=== PATIENT | female | born 1980 | race Caucasian/White ===

== ENCOUNTER 2016-08-15 12:18 | Emergency (ER) | payer OTHER, MEDICAID ==
[~2016-08-15] VITALS: Ht 154.9 cm; Wt 54.4 kg
[~2016-08-15 12:18] MED LIST: FLEXERIL10 MG PO; LOPRESSOR 50 MG50 MG PO; LORTAB 5/500 501 TAB PO; NAPROXEN SODIU500 MG PO; ORTHO TRI-CYCLE1 TAB PO
[2016-08-15] MEDS ORDERED: CYANOCOBAL1000 MCG/M PO (12:30)
--- OUTSIDE RECORDS SUMMARY | 2016-08-15 12:44 | External Medical Summary Rpt ---
Author Author , RAY Yuen RAY Address Unknown Phone [email or web address] Medical Testing Care Team Providers Care Army Officer Name Role Phone MAYORGA ALL, MAYORGA ALL Unavailable Unavailable Clue App [facility] Unavailable Unavailable DEPARTMENT, [facility] HEALTH DEPARTMENT [facility] Unavailable Unavailable DEPARTMENT, [facility] HEALTH DEPARTMENT VILLAVICENCIO DORIAN, VILLAVICENCIO Unavailable Unavailable [facility] VILLAVICENCIO DORIAN, VILLAVICENCIO Unavailable Unavailable [facility], [facility] Un[facility] Un[facility] Unavailable Unavailable [facility] JOSIE Murrell, GORGE Murrell Unavailable Unavailable GORGE VALLE, GORGE Unavailable Unavailable Nyasia GILLETTE COOPER, Unavailable Unavailable MARIANNE CARDOZO Unavailable Unavailable ANTHONY KRAFT, Unavailable Unavailable [facility] Unavailable Unavailable [facility], [facility] Unavailable Unavailable INC, [facility] Unavailable [facility]available HOSPITAL P, [facility] P SANDOVAL JESSICA, SANDOVAL JESSICA Unavailable Unavailable SANDOVAL JESSICA, SANDOVAL JESSICA Unavailable Unavailable [facility], Unavailable Unavailable [facility] Unavailable [facility]available IMAGING [facility], [facility] Unavailable Unavailable HOLDINGS, [facility] Unavailable Unavailable [facility], [facility] & Unavailable [facility]available [facility] & Unavailable Unavailable [facility] JOE OF Unavailable Unavailable [facility], [facility]ORATORY JO[facility]ATORY JO[facility] OF Unavailable Unavailable [facility], [facility]AT[facility] Unavailable Unavailable [facility], [facility] KELLY ROBLEDO DWI, KELLY Unavailable Unavailable JR DWI JANET ROBLEDO SUMANTH, Unavailable Unavailable OMAR CHARLES JR, Unavailable Unavailable OMAR MADDOX MULBERRY EDEN, Unavailable Unavailable MULBERRY EDEN MULBERRY EDEN, Unavailable Unavailable MULBERRY EDEN [facility], Unavailable Unavailable [facility], Unavailable Unavailable [facility] Unavailable Unavailable LAB, [facility] Unavailable Unavailable LAB, [facility] Unavailable [facility] Unavailable Unavailable [facility] Unavailable Unavailable DEPARTMENT, [facility] MARTHA THOMAS Unavailable Unavailable ELÍAS PATEL, ELÍAS Unavailable Unavailable AMANDA [facility] Unavailable [facility]available [facility] Unavailable Unavailable LLC., 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 R002 PALPITATION 07-14-2016 [facility] S PHYSICIANS GROUP [id number] PAIN IN 12-18-2015 [facility] [id number] UNS INJURY 12-18-2015 [facility] LT LOWER MEDICAL LEG INITIAL IMAGING ASS ENCOUNTER Z23 ENCOUNTER 11-26-2015 [facility] FOR [facility] IMMUNIZATIO DEPARTMENT N Z302 ENCOUNTER 12-10-2014 [facility] FOR PHYSICIANS STERILIZATI GROUP ON [id number] ENCOUNTER 12-07-2014 [facility] PREPROCEDUR INC AL LABORATORY EXAM Z309 ENCOUNTER 12-07-2014 [facility] CONTRACEPTI INC VE MANAGEMENT UNS Z3009 ENCOUNTER 11-27-2014 [facility] 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 Z9851 TUBAL 11-27-2014 [facility] LIGATION PHYSICIANS STATUS GROUP 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 Z1151 ENCOUNTER 11-14-2014 LABORATORY FOR JOE OF SCREENING VANI H FOR HUMAN PAPILLOMAVI MILO Z124 ENCOUNTER 11-14-2014 LABORATORY OTHER JOE OF SCREENING VANI H MALIG NEOPLASM CERVIX [id number] ENCOUNTER 11-13-2014 [facility] 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 EXAM PRIMARY GENERAL RTN CARE CENTER W/O ABNORMAL FIND Z713 DIETARY 11-13-2014 [facility] COUNSELING PRIMARY AND CARE CENTER SURVEILLANC E Z719 COUNSELING 11-13-2014 [facility] UNSPECIFIED PRIMARY CARE CENTER V0481 NEED 11-01-2014 [facility] PROPHYLACTI HEALTH C DEPARTMENT VACCINATION &INOCULATIO N FLU 1319 UNSPECIFIED 10-25-2014 [facility] PHYSICIANS TRICHOMONIA GROUP SIS 74160 UNSPECIFIED 10-25-2014 [facility] VAGINITIS PHYSICIANS AND GROUP VULVOVAGINI TIS V2509 OTH GENERAL 10-25-2014 [facility] PHYSICIANS CNSL&ADVICE GROUP CONTRACEPT MANAGEMENT V692 PROBLEMS 10-25-2014 [facility] HIGH-RISK INC SEXUAL BEHAVIOR 6235 LEUKORRHEA 09-19-2014 [facility] NOT PRIMARY SPECIFIED CARE CENTER INFECTIVE V2549 SURVEILLANC 08-20-2014 [facility] E OTH PREV HEALTH PRSC DEPARTMENT CONTRACEPT METHOD 0542 HERPETIC 07-05-2014 [facility] ATITIS 7464 CONGENITAL 07-05-2014 [facility] CARE INSUFFICIEN ASSOCIATES CY OF AORTIC VALVE 7840 HEADACHE 07-05-2014 [facility] 7851 PALPITATION 07-05-2014 [facility] S [facility]ATES 4019 UNSPECIFIED 03-14-2014 COMBINED ESSENTIAL PHYSICIANS HYPERTENSIO LA N 460 ACUTE 12-02-2013 LAB JOE NASOPHARYNG VANI ITIS HOLDINGS 7821 RASH AND 12-01-2013 [facility] OTHER ASSOCIATES NONSPECIFIC SKIN ERUPTION V2689 OTHER 11-08-2013 [facility] SPECIFIED HEALTH PROCREATIVE DEPARTMENT MANAGEMENT 7295 PAIN IN 08-07-2013 MULBERRY SOFT EDEN TISSUES OF LIMB 6259 UNSPEC 03-23-2013 [facility] DORIAN SYMPTOM ASSOC W/FEMALE GENITAL ORGANS 04140 ABDOMINAL 03-23-2013 VILL[facility]ICENCIO DORIAN PAIN, LEFT LOWER QUADRANT 30229 REGULAR 03-22-2013 SANDOVAL JESSICA ASTIGMATISM 6250 DYSPAREUNIA 03-16-2013 [facility]IAN 39190 ABDOMINAL 03-16-2013 [facility]IAN PAIN, UNSPECIFIED SITE 4871 INFLUENZA 02-20-2013 FABIANA R WITH OTHER H RESPIRATORY MANIFESTATI ONS 94805 HEMATURIA 06-25-2010 [place] [facility] 24791 ABDOMINAL 06-25-2010 [facility] PAIN OTHER [facility] SPECIFIED INC SITE 4240 MITRAL 05-20-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 DISORDERS GROUP 85190 SUPRAVENTRI 05-20-2010 [facility] CULAR PHYSICIANS PREMATURE GROUP BEATS 8798 OPEN WOUND 05-10-2010 COMBINED UNSPEC SITE PHYSICIANS WITHOUT LA MENTION COMP 2662 OTHER 03-10-2010 [facility] Cano-COMPLEX CO HEALTH DEFICIENCIE DEPARTME S V2541 SURVEILLANC 03-10-2010 JASON Nava PREV CO HEALTH PRESCRIBED DEPARTME CONTRACEPT PILL 7466 CONGENITAL 03-03-2010 [facility]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 7852 UNDIAGNOSED 02-13-2010 [place] [facility] P V6700 FOLLOW-UP 12-02-2009 WOMEN'S EXAMINATION HEALTH FOLLOWING CLINIC OF UNSPEC [place] SURGERY 5680 PERITONEAL 11-25-2009 WOMEN'S ADHESIONS [facility]ALTH CLINIC OF [place] 6146 PELVIC 11-25-2009 WOMEN'S PERITONEAL HEALTH ADHESIONS, CLINIC OF FEMALE [place] 6268 OTH D/O 11-25-2009 PATHOLOGY & MENSTRUATIO CYTOLOGY N&OTH ABN LAB BLEED FE GNT TRACT 6253 DYSMENORRHE 11-18-2009 WOMEN'S A HEALTH CLINIC OF [place] 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ASSOCIATES SKIN OF TRUNK EXCEPT SCROTUM 40367 OTHER 05-15-2009 [facility] ANXIETY [facility] STATES 2382 NEOPLASM OF 05-01-2009 [facility] UNCERTAIN [facility] BEHAVIOR OF SKIN 97089 VERTIGO 04-24-2009 [facility] LATE EFFECT ASSOCIATES CEREBROVASC ULAR DISEASE 7804 DIZZINESS 04-24-2009 [facility] AND PHYSICIANS GIDDINESS GROUP 26994 CHEST PAIN 04-24-2009 [facility] 71162 UNSPECIFIED 04-17-2009 [facility] VIRAL [facility] INFECTION IN CCE & UNS SITE 4279 UNSPECIFIED 04-17-2009 [facility] CARDIAC [facility] DYSRHYTHMIA Medications Na ND Rx Da Fi Fi Am Da Di Ph RX Ph St me C No te ll ll ou ys ag ar # ys at rm s nt no ma ic us Or Da si cy ia de te s n re d LI 68 06 06 60 30 00 CL Ac SI 18 -0 -3 .0 00 IN ti NO 00 6- 0- 00 00 IC ve RI 98 20 20 43 IL 00 17 17 31 PH 3 88 AR 10 MA CY MG TA BL ET ME 57 05 06 60 30 00 CL Ac TO 23 -2 -2 .0 00 IN ti RI 70 7- 3- 00 00 IC ve OL 10 20 20 42 OL 19 17 17 40 PH 9 92 AR TA MA RT CY RA TE 50 MG TA B TR 00 05 06 90 30 00 CL Ac AM 37 -2 -2 .0 00 IN ti AD 88 7- 3- 00 00 IC ve OL 08 20 20 43 -A 80 17 17 22 PH CE 5 81 AR TA MA AK CY NO PH N 37 .5 -3 25 DI 51 04 05 12 30 00 CL Ac AZ 86 -2 -2 0. 00 IN ti EP 20 8- 6- 00 00 IC ve AM 06 20 20 0 42 5 31 17 17 40 PH 0 76 AR MG MA CY TA BL ET ME 57 04 05 60 30 00 CL Ac TO 23 -2 -2 .0 00 IN ti RI 70 8- 6- 00 00 IC ve OL 10 20 20 42 OL 19 17 17 40 PH 9 92 AR TA MA RT CY RA TE 50 MG TA B ME 00 03 04 60 30 00 CL Ac TO 59 -3 -2 .0 00 IN ti RI 10 1- 8- 00 00 IC ve OL 46 20 20 42 OL 21 17 17 40 PH 0 92 AR TA MA RT CY RA TE 50 MG TA B TR 00 03 04 90 30 00 CL Ac AM 37 -3 -2 .0 00 IN ti AD 88 1- 8- 00 00 IC ve OL 08 20 20 42 -A 80 17 17 69 PH CE 5 50 AR TA MA AK CY NO PH N 37 .5 -3 25 ME 00 03 03 60 30 00 CL Ac TO 59 -0 -3 .0 00 IN ti RI 10 3- 1- 00 00 IC ve OL 46 20 20 42 OL 21 17 17 11 PH 0 24 AR TA MA RT CY RA TE 50 MG TA B TR 00 03 03 90 30 00 CL Ac AM 37 -0 -3 .0 00 IN ti AD 88 3- 1- 00 00 IC ve OL 08 20 20 42 -A 80 17 17 40 PH CE 5 77 AR TA MA AK CY NO PH N 37 .5 -3 25 ME 00 02 03 60 30 00 CL Ac TO 59 -0 -0 .0 00 IN ti RI 10 3- 3- 00 00 IC ve OL 46 20 20 42 OL 21 17 17 11 PH 0 24 AR TA MA RT CY RA TE 50 MG TA B DI 51 01 02 12 30 00 CL Ac AZ 86 -2 -2 0. 00 IN ti EP 20 3- 4- 00 00 IC ve AM 06 20 20 0 41 5 31 17 17 98 PH 0 25 AR MG MA CY TA BL ET TR 00 01 02 45 15 00 CL Ac AM 37 -0 -1 .0 00 IN ti AD 88 6- 0- 00 00 IC ve OL 08 20 20 41 -A 80 17 17 57 PH CE 5 55 AR TA MA AK CY NO PH N 37 .5 -3 25 NI 37 01 02 28 28 00 CL Ac CO 20 -0 -0 .0 00 IN ti TI 50 2- 3- 00 00 IC ve NE 35 20 20 41 87 17 17 37 PH 21 4 69 AR MA MG CY /2 4H R PA TC H ME 50 12 02 14 7 00 WA Ac TR 11 -3 -0 .0 00 L- ti ON 10 1- 3- 00 07 MA ve ID 33 20 20 46 RT AZ 40 16 17 18 OL 2 60 PH E AR 50 MA 0 CY MG #5 TA 91 BL ET ME 00 01 02 60 30 00 CL Ac TO 59 -0 -0 .0 00 IN ti RI 10 2- 3- 00 00 IC ve OL 46 20 20 40 OL 21 17 17 74 PH 0 71 AR TA MA RT CY RA TE 50 MG TA B TR 00 12 01 45 15 00 CL Ac AM 37 -0 -1 .0 00 IN ti AD 88 9- 3- 00 00 IC ve OL 08 20 20 41 -A 80 16 17 57 PH CE 5 55 AR TA MA AK CY NO PH N 37 .5 -3 25 ME 00 12 01 10 5 00 CL Ac TR 59 -0 -1 .0 00 IN ti ON 15 8- 3- 00 00 IC ve ID 21 20 20 40 AZ 50 16 17 81 PH OL 5 64 AR E MA 50 CY 0 MG TA BL ET DI 51 12 01 12 30 00 CL Ac AZ 86 -0 -1 0. 00 IN ti EP 20 8- 3- 00 00 IC ve AM 06 20 20 0 41 5 31 16 17 05 PH 0 31 AR MG MA CY TA BL ET ME 00 12 01 60 30 00 CL Ac TO 59 -0 -0 .0 00 IN ti RI 10 5- 9- 00 00 IC ve OL 46 20 20 40 OL 21 16 17 74 PH 0 71 AR TA MA RT CY RA TE 50 MG TA B NI 37 12 01 28 28 00 CL Ac CO 20 -0 -0 .0 00 IN ti TI 50 5- 9- 00 00 IC ve NE 35 20 20 41 87 16 17 37 PH 21 4 69 AR MA MG CY /2 4H R PA TC H AC 00 04 04 0 15 5 CL 23 CR Ac YC 09 -2 -2 .0 IN 74 OW ti LO 38 9- 9- 00 IC 77 DY ve 94 20 20 R 00 11 11 PH CR 20 1 AR IS 0 MA TA MG CY S CA LL PS C UL E ME 49 03 04 4 60 30 CL 23 CO Ac TO 88 -0 -1 .0 IN 38 OP ti RI 40 2- 4- 00 IC 21 ER ve OL 40 20 20 OL 50 11 11 PH RADHA 1 AR HN VERDIN MA G CC CY ER LL C 50 MG TA B CI 00 03 04 2 15 30 CL 23 CO Ac TA 37 -1 -1 .0 IN 48 OP ti LO 86 7- 4- 00 IC 67 ER ve RI 23 20 20 AM 30 11 11 PH RADHA 1 AR HN HB MA G R CY 40 LL MG C TA BL ET DI 00 03 04 2 90 30 CL 23 CO Ac AZ 59 -0 -0 .0 IN 38 OP ti EP 15 2- 6- 00 IC 24 ER ve AM 61 20 20 5 91 11 11 PH RADHA 0 AR HN MG MA G CY TA BL LL ET C AM 00 03 03 0 4. 1 CL 23 MC Ac OX 78 -2 -2 00 IN 52 CO ti IC 12 4- 4- [address] ve IL 61 20 20 LI 30 11 11 PH GA N 5 AR RY 50 MA L 0 CY MG LL CA C PS UL E CI 00 03 03 2 15 30 CL 23 CO Ac TA 37 -1 -1 .0 IN 48 OP ti LO 86 7- 7- 00 IC 67 ER ve RI 23 20 20 AM 30 11 11 PH RADHA 1 AR HN HB MA G R CY 40 LL MG C TA BL ET ME 49 03 03 4 60 30 CL 23 CO Ac TO 88 -0 -1 .0 IN 38 OP ti RI 40 2- 4- 00 IC 21 ER ve OL 40 20 20 OL 50 11 11 PH RADHA 1 AR HN VERDIN MA G CC CY ER LL C 50 MG TA B DI 00 03 03 2 90 30 CL 23 CO Ac AZ 59 -0 -0 .0 IN 38 OP ti EP 15 2- 3- 00 IC 24 ER ve AM 61 20 20 5 91 11 11 PH RADHA 0 AR HN MG MA G CY TA BL LL ET C AM 00 03 03 0 4. 1 CL 23 CO Ac OX 78 -0 -0 00 IN 38 OP ti IC 12 2- 2- 0 IC 23 ER ve IL 61 20 20 LI 30 11 11 PH RADHA N 5 AR HN 50 MA G 0 CY MG LL CA C PS UL E ME 49 09 02 5 60 30 CL 22 CO Ac TO 88 -1 -1 .0 IN 31 OP ti RI 40 4- 4- 00 IC 78 ER ve OL 40 20 20 OL 50 10 11 PH RADHA 1 AR HN VERDIN MA G CC CY ER LL C 50 MG TA B DI 00 01 02 1 90 30 CL 22 CO Ac AZ 59 -0 -0 .0 IN 98 OP ti EP 15 4- 4- 00 IC 75 ER ve AM 61 20 20 5 91 11 11 PH RADHA 0 AR HN MG MA G CY TA BL LL ET C ME 49 09 01 5 60 30 CL 22 CO Ac TO 88 -1 -1 .0 IN 31 OP ti RI 40 4- 3- 00 IC 78 ER ve OL 40 20 20 OL 50 10 11 PH RADHA 1 AR HN VERDIN MA G CC CY ER LL C 50 MG TA B TR 65 01 01 0 90 30 CL 22 CO Ac AM 16 -0 -0 .0 IN 98 OP ti AD 20 4- 4- 00 IC 74 ER ve OL 62 20 20 71 11 11 PH RADHA HC 1 AR HN L MA G 50 CY MG LL C TA BL ET DI 00 01 01 1 90 30 CL 22 CO Ac AZ 59 -0 -0 .0 IN 98 OP ti EP 15 4- 4- 00 IC 75 ER ve AM 61 20 20 5 91 11 11 PH RADHA 0 AR HN MG MA G CY TA BL LL ET C ME 49 09 12 5 60 30 CL 22 CO Ac TO 88 -1 -1 .0 IN 31 OP ti RI 40 4- 4- 00 IC 78 ER ve OL 40 20 20 OL 50 10 10 PH RADHA 1 AR HN VERDIN MA G CC CY ER LL C 50 MG TA B DI 00 10 12 2 90 30 CL 22 CO Ac AZ 17 -0 -0 .0 IN 43 OP ti EP 23 5- 3- 00 IC 62 ER ve AM 92 20 20 2 56 10 10 PH RADHA 0 AR HN MG MA G CY TA BL LL ET C TR 65 11 11 0 42 9 CL 22 CL Ac AM 16 -2 -2 .0 IN 73 AR ti AD 20 3- 3- 00 IC 90 KE ve OL 62 20 20 71 10 10 PH DE HC 1 AR RE L MA K 50 CY J MG LL C TA BL ET ME 49 09 11 5 60 30 CL 22 CO Ac TO 88 -1 -1 .0 IN 31 OP ti RI 40 4- 0- 00 IC 78 ER ve OL 40 20 20 OL 50 10 10 PH RADHA 1 AR HN VERDIN MA G CC CY ER LL C 50 MG TA B 00 11 11 0 30 8 CL 22 CL Ac 59 -0 -0 .0 IN 60 AR ti 10 3- 3- 00 IC 75 KE ve 38 20 20 50 10 10 PH DE 5 AR RE MA K CY J LL C DI 00 10 11 2 90 30 CL 22 CO Ac AZ 17 -0 -0 .0 IN 43 OP ti EP 23 5- 3- 00 IC 62 ER ve AM 92 20 20 2 56 10 10 PH RADHA 0 AR HN MG MA G CY TA BL LL ET C 00 10 10 1 30 6 CL 22 CL Ac 59 -1 -2 .0 IN 51 AR ti 10 8- 5- 00 IC 96 KE ve 38 20 20 50 10 10 PH DE 5 AR RE MA K CY J LL C 00 10 10 1 30 6 CL 22 CL Ac 59 -1 -1 .0 IN 51 AR ti 10 8- 8- 00 IC 96 KE ve 38 20 20 50 10 10 PH DE 5 AR RE MA K CY J LL C 24 10 10 1 12 30 CL 22 CL Ac 48 -1 -1 0. IN 47 AR ti 60 1- 1- 00 IC 34 KE ve 60 20 20 0 11 10 10 PH DE 0 AR RE MA K CY J LL C TR 65 10 10 0 42 9 CL 22 CL Ac AM 16 -1 -1 .0 IN 47 AR ti AD 20 1- 1- 00 IC 35 KE ve OL 62 20 20 71 10 10 PH DE HC 1 AR RE L MA K 50 CY J MG LL C TA BL ET ME 49 09 10 5 60 30 CL 22 CO Ac TO 88 -1 -1 .0 IN 31 OP ti RI 40 4- 1- 00 IC 78 ER ve OL 40 20 20 OL 50 10 10 PH RADHA 1 AR HN VERDIN MA G CC CY ER LL C 50 MG TA B DI 00 10 10 2 90 30 CL 22 CO Ac AZ 17 -0 -0 .0 IN 43 OP ti EP 23 5- 5- 00 IC 62 ER ve AM 92 20 20 2 56 10 10 PH RADHA 0 AR HN MG MA G CY TA BL LL ET C ME 68 09 09 3 30 30 CL 22 CO Ac LO 18 -2 -2 .0 IN 39 OP ti XI 00 7- 7- 00 IC 01 ER ve CA 50 20 20 M 10 10 10 PH RADHA 7. 1 AR HN 5 MA G MG CY TA LL BL C ET AC 00 09 09 1 15 5 CL 22 CO Ac YC 09 -2 -2 .0 IN 36 OP ti LO 38 3- 3- 00 IC 96 ER ve 94 20 20 R 30 10 10 PH RADHA 40 1 AR HN 0 MA G MG CY TA LL BL C ET ME 49 09 09 5 60 30 CL 22 CO Ac TO 88 -1 -1 .0 IN 31 OP ti RI 40 4- 4- 00 IC 78 ER ve OL 40 20 20 OL 50 10 10 PH RADHA 1 AR HN VERDIN MA G CC CY ER LL C 50 MG TA B AC 00 06 09 1 15 5 CL 21 CO Ac YC 09 -2 -1 .0 IN 88 OP ti LO 38 8- 4- 00 IC 31 ER ve 94 20 20 R 30 10 10 PH RADHA 40 5 AR HN 0 MA G MG CY TA LL BL C ET DI 00 06 09 2 90 30 CL 21 CO Ac AZ 17 -2 -0 .0 IN 88 OP ti EP 23 8- 3- 00 IC 32 ER ve AM 92 20 20 2 56 10 10 PH RADHA 0 AR HN MG MA G CY TA BL LL ET C ME 49 03 08 6 60 30 CL 21 CO Ac TO 88 -1 -1 .0 IN 23 OP ti RI 40 0- 2- 00 IC 11 ER ve OL 40 20 20 OL 50 10 10 PH RADHA 1 AR HN VERDIN MA G CC CY ER LL C 50 MG TA B DI 00 06 08 2 90 30 CL 21 CO Ac AZ 17 -2 -0 .0 IN 88 OP ti EP 23 8- 4- 00 IC 32 ER ve AM 92 20 20 2 57 10 10 PH RADHA 0 AR HN MG MA G CY TA BL LL ET C ME 49 03 07 6 60 30 CL 21 CO Ac TO 88 -1 -1 .0 IN 23 OP ti RI 40 0- 3- 00 IC 11 ER ve OL 40 20 20 OL 50 10 10 PH RADHA 1 AR HN VERDIN MA G CC CY ER LL C 50 MG TA B DI 00 06 07 2 90 30 CL 21 CO Ac AZ 17 -2 -0 .0 IN 88 OP ti EP 23 8- 5- 00 IC 32 ER ve AM 92 20 20 2 56 10 10 PH RADHA 0 AR HN MG MA G CY TA BL LL ET C AC 00 06 06 1 15 5 CL 21 CO Ac YC 09 -2 -2 .0 IN 88 OP ti LO 38 8- 8- 00 IC 31 ER ve 94 20 20 R 30 10 10 PH RADHA 40 5 AR HN 0 MA G MG CY TA LL BL C ET ME 49 03 06 6 60 30 CL 21 CO Ac TO 88 -1 -0 .0 IN 23 OP ti RI 40 0- 9- 00 IC 11 ER ve OL 40 20 20 OL 50 10 10 PH RADHA 1 AR HN VERDIN MA G CC CY ER LL C 50 MG TA B DI 00 04 06 2 90 30 CL 21 CO Ac AZ 17 -0 -0 .0 IN 40 OP ti EP 23 7- 3- 00 IC 87 ER ve AM 92 20 20 2 56 10 10 PH RADHA 0 AR HN MG MA G CY TA BL LL ET C ME 49 03 05 6 60 30 CL 21 CO Ac TO 88 -1 -1 .0 IN 23 OP ti RI 40 0- 1- 00 IC 11 ER ve OL 40 20 20 OL 50 10 10 PH RADHA 1 AR HN EVRDIN MA G CC CY ER LL C 50 MG TA B DI 00 04 05 2 90 30 CL 21 CO Ac AZ 17 -0 -0 .0 IN 40 OP ti EP 23 7- 5- 00 IC 87 ER ve AM 92 20 20 2 56 10 10 PH RADHA 0 AR HN MG MA G CY TA BL LL ET C ME 49 03 04 6 60 30 CL 21 CO Ac TO 88 -1 -1 .0 IN 23 OP ti RI 40 0- 2- 00 IC 11 ER ve OL 40 20 20 OL 50 10 10 PH RADHA 1 AR HN VERDIN MA G CC CY ER LL C 50 MG TA B DI 00 04 04 2 90 30 CL 21 CO Ac AZ 17 -0 -0 .0 IN 40 OP ti EP 23 7- 7- 00 IC 87 ER ve AM 92 20 20 2 56 10 10 PH RADHA 0 AR HN MG MA G CY TA BL LL ET C LO 63 03 03 1 90 30 WA 44 CO Ac RA 30 -1 -1 .0 L- 84 OP ti ZE 40 8- 8- 00 MA 25 ER ve PA 77 20 20 RT 5 M 29 10 10 RADHA 0. 0 PH HN 5 AR G MG MA CY TA # BL ET 10 05 91 ME 49 03 03 6 60 30 CL 21 CO Ac TO 88 -1 -1 .0 IN 23 OP ti RI 40 0- 0- 00 IC 11 ER ve OL 40 20 20 OL 50 10 10 PH RADHA 1 AR HN VERDIN MA G CC CY ER LL C 50 MG TA B Immunization Name Date Rout CVX Reac Dose Comm Prov Is Faci e tion ent ider Refu lity Give sed n IIV4 10-1 158 BRAC No BRAC 8-20 LISSY LISSY VACC 16 CO CO HEAL HEAL SPLI TH TH T DEPA DEPA VIRU RTME RTME S NT NT 0.5 ML DOS FOR IM USE IIV4 09-2 158 BRAC No BRAC 4-20 LISSY LISSY VACC 15 CO CO HEAL HEAL SPLI TH TH T DEPA DEPA VIRU RTME RTME S NT NT 0.5 ML DOS FOR IM USE Results Labs Lab Lab Date Result Refere Interp Status Commen Order Detail nces retati t Range on CHLAMYDIA AND GONORRHEA TESTING (01-25-2013 09:00) Chlamyd NEGATIV complet ia 013 E ed trachom 09:00 atis rRNA [Presen ce] in Unspeci fied specime n by Probe & target amplifi cation method Neisser NEGATIV complet ia 013 E ed gonorrh 09:00 oeae rRNA [Presen ce] in Unspeci fied specime n by Probe & target amplifi cation method CHLAMYDIA AND GONORRHEA TESTING (01-25-2013 09:00) COLLECT K. complet OR 013 YOUNG, ed 09:00 RN SUPPORT SERVICES ETHNICI WHITE, complet TY 013 NON-HIS ed 09:00 PANIC KIT 05/09/19 complet EXPIRAT 013 14 ed ION 09:00 DATE SYMPTOM YES complet S 013 ed 09:00 REASON 01-25- REVISIT complet FOR 013 /ANNUAL ed REQUEST 09:00 FAMILY PLANNIN G VISIT SPECIME 01-25- FEMALE complet N 013 ENDOCER ed SOURCE 09:00 VICAL PREGNAN 01-25- NO complet T 013 ed 09:00 CHART 01-25- N/A complet NUMBER 013 ed 09:00 Chlamyd 01-25- Pending complet ia 013 ed trachom 09:00 atis rRNA [Presen ce] in Unspeci fied specime n by Probe & target amplifi cation method Neisser 01-25- Pending complet ia 013 ed gonorrh 09:00 oeae rRNA [Presen ce] in Unspeci fied specime n by Probe & target amplifi cation method Procedures Procedure DOS Code Location Performer Comment ECG 26383 NICHOLAS PETERSON ROUTINE 7 [facility] ECG INC INC W/LEAST 12 LDS TRCG ONLY W/O I&R ECG 82638 [facility] MARTHA ROUTINE 7 PHYSICIAN ECG S GROUP W/LEAST 12 LDS I&R ONLY ECHO 91029 NICHOLAS PETERSON TTHRC R-T 7 [facility] 2D INC INC W/WOM-MOD E COMPL SPEC&COLR D RADIOLOGI 73362 [place] [facility] ALL C 6 MEDICAL EXAMINATI IMAGING ON KNEE 3 ASS VIEWS IIV4 VACC 92202 MENDY BROOKE SPLIT 6 CO HEALTH CO HEALTH VIRUS 0.5 ML DOS DEPARTMEN DEPARTMEN FOR IM T T USE LAPAROSCO 51407 NICHOLAS PETERSON PY W/PLMT 5 [facility] INC INC OCCLUSION DEVICE OVIDUCTS ANES IPER 92233 [facility] ABD 5 ANESTH AMANDA W/LAPS OF THE TUBAL BLUE LIGATION/ TRANSECT ECG 12743 NICHOLAS MENDOZA JR ROUTINE 5 [facility] W/LEAST P 12 LDS I&R ONLY INJECTION J2710 NICHOLAS PETERSON 5 [facility] NEOSTIGMI INC INC NE METHYLSUL FATE UP TO 0.5 MG COLLECTIO 09084 NICHOLAS PETERSON N VENOUS 5 [facility] BLOOD INC INC VENIPUNCT URE CYANOCOBA 01353 NICHOLAS PETERSON JULISSA 5 [facility] VITAMIN INC INC B-12 COMPREHEN [id number] NICHOLAS PETERSON SIVE 5 [facility] METABOLIC INC INC PANEL GONADOTRO 70549 NICHOLAS PETERSON PIN 5 [facility] CHORIONIC INC INC QUALITATI VE BLOOD 97683 NICHOLAS PETERSON COUNT 5 [facility] COMPLETE INC INC AUTO&AUTO DIFRNTL WBC IADNA 31536 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 HUMAN 5 Y JOE OF Y JOE OF [place] VANI VANI VIRUS H H HIGH-RISK TYPES OPHTH 43653 [facility] 5 XM&EVAL COMPRHNSV ESTAB PT 1/> CYTP C/V 64179 LABORATOR LABORATOR AUTO THIN 5 Y JOE OF Y JOE OF [place] VANI VANI PREPJ SCR H H MNL RESCR PHYS IIV4 VACC 49671 MENDY BROOKE SPLIT 5 [facility] VIRUS 0.5 ML DOS DEPARTMEN DEPARTMEN FOR IM T T USE SMR PRIM 92001 [facility] VILLAVICENCIO SRC WET 5 PHYSICIAN [facility] S GROUP NFCT AGT IADNA 81679 NICHOLAS PETERSON NEISSERIA 5 [facility] INC GONORRHOE AE AMPLIFIED PROBE TQ IADNA 80291 NICHOLAS PETERSON CHLAMYDIA 5 [facility] INC TRACHOMAT IS AMPLIFIED PROBE TQ SMR PRIM 18421 KELLY FERGUSON FALGUNI SRC WET 5 [facility] NFCT AGT CENTER EXTERNAL 88502 NICHOLAS PETERSON ECG 5 [facility] SCANNING INC INC ANALYSIS REPORT XTRNL ECG 83770 NICHOLAS PETERSON & 48 HR 5 [facility] RECORDING INC INC XTRNL ECG 78890 NICHOLAS MENDOZA JR 5 [facility] S RHYTHM P W/I&R UP TO 48 HRS COMPREHEN 05336 COMBINED COMBINED SIVE 5 PHYSICIAN PHYSICIAN METABOLIC S LA S LA PANEL 25 84654 COMBINED COMBINED HYDROXY 5 PHYSICIAN PHYSICIAN INCLUDES S LA S LA FRACTIONS IF PERFORMED CYANOCOBA 36349 COMBINED COMBINED JULISSA 5 PHYSICIAN PHYSICIAN VITAMIN S LA S LA B-12 ANTIBODY 61016 [facility] ANA-B 4 VANI VANI ARR EB [facility] VIRUS EARLY ANTIGEN EA ANTIBODY 15983 [facility] ANA-B 4 VANI VANI ARR [facility] VIRUS NUCLEAR AG EBNA ANTIBODY 85038 [facility] JOE ANA-B 4 VANI VANI ARR [facility] VIRUS VIRAL CAPSID VCA ANTISTREP 67175 LAB JOE LAB JOE TOLYSIN O 4 VANI VANI TITER HOLDINGS HOLDINGS IAADIADOO 64492 FAMILY MULBERRY 4 CARE EDEN STREPTOCO ASSOCIATE CCUS S GROUP A BLOOD 06430 FAMILY MULBERRY COUNT 4 CARE EDEN COMPLETE ASSOCIATE AUTO&AUTO S DIFRNTL WBC DUP-SCAN 43242 NICHOLAS PETERSON XTR VEINS 4 [facility] INC INC [place]ILATER[place] L/[place] [address] SAUD VILLAVICENCIO TRANSVAGI 4 DORIAN DORIAN NAL OPHTH 38948 [facility] XM&EVAL COMPRE NEW PT 1/> VST URNLS DIP 24599 SAUD VILLAVICENCIO 4 DORIAN DORIAN STICK/TAB LET RGNT NON-AUTO W/O MICRSCP BLOOD 25951 NICHOLAS PETERSON COUNT 4 [facility] COMPLETE INC INC AUTO&AUTO DIFRNTL WBC URINE 64422 SAUD VILLAVICENCIO 4 DORIAN DORIAN TEST VISUAL COLOR CMPRSN METHS BLOOD 24547 FABIANA FABIANA COUNT 4 R H R H COMPLETE AUTO&AUTO DIFRNTL WBC COLLECTIO 05649 FABIANA FABIANA N 4 R H R H CAPILLARY BLOOD SPECIMEN IAADIADOO 06586 FABIANA FABIANA [place] [address] NICHOLAS PETERSON ABDOMEN & 1 [facility] PELVIS INC INC W/O CONTRAST MATERIAL 3D 39150 NICHOLAS PETERSON RENDERING 1 [facility] INC INC W/INTERP& POSTPROC DIFF WORK STATION CUL BACT 44484 COMBINED COMBINED XCPT 1 PHYSICIAN PHYSICIAN URINE S LA S LA BLOOD/STO OL AEROBIC ISOL SUSCEPTIB 42171 COMBINED COMBINED ILITY 1 PHYSICIAN PHYSICIAN STUDY S LA S [place] [address] NICHOLAS PETERSON ACTIVATED 1 [facility] ECG INC INC RECORD MONITOR 30 DAYS CONTRACEP S4993 JASON GOMEZ TIVE 1 [facility] DEPARTME DEPARTME CONTROL URINE 95842 NICHOLAS PETERSON 1 [facility] TEST INC [place] [address] NICHOLAS PETERSON INFUSION 1 [facility] THERAPY INC INC PROPHYLAX IS/DX EA HOUR DOPPLER 92942 [facility] ECHOCARD 1 PHYSICIAN HENRI PULSE S GROUP WAVE W/SPECTRA L DISPLAY ECHO 35528 [facility] TRANSESOP 1 PHYSICIAN HENRI HAG R-T S GROUP 2D W/PRB IMG ACQUISJ I&R DOP 19987 [facility] ECHOCARD 1 PHYSICIAN HENRI COLOR S GROUP FLOW VELOCITY MAPPING ECHO 48034 NICHOLAS SKELTONAMANDAJESUS TTHRC R-T [address] W/WOM-MOD P E COMPL SPEC&COLR D LAPAROSCO 90699 NICHOLAS PETERSON PY 0 [facility] W/[place] [address] PATHOLOGY PATHOLOGY SURG 0 & & PATHOLOGY CYTOLOGY CYTOLOGY LAB LAB GROSS&BERNARDO ROSCOPIC EXAM ANESTHESI 46635 [facility] A 0 ANESTH INTRAPERI OF THE TONEAL BLUE [place] [address] NICHOLAS PETERSON INFUSION 0 [facility] THERAPY INC INC PROPHYLAX IS/DX EA HOUR APPLICATI 9977 NICHOLAS PETERSON ON/ADMIN 0 [facility] ADHESION INC INC BARRIER SUBSTANCE S HYSTEROSC 6812 NICHOLAS PETERSON OPY 0 [facility] INC INC OTHER 6909 NICHOLAS PETERSON DILATION 0 [facility] AND INC INC CURETTAGE OF UTERUS LAPAROSCP 6581 NICHOLAS PETERSON IC LYSIS 0 [facility] ADHESIONS INC INC OVARY&FAL LOPIAN TUBE BASIC 60550 NICHOLAS PETERSON METABOLIC 0 [facility] PANEL INC INC CALCIUM TOTAL BLOOD 71528 NICHOLAS PETERSON COUNT 0 [facility] COMPLETE INC INC AUTO&AUTO DIFRNTL WBC GONADOTRO 08064 NICHOLAS PETERSON PIN 0 [facility] CHORIONIC INC INC QUALITATI VE CULTURE 94268 LABORATOR LABORATOR BACTERIAL 0 Y & Y & BIODIAGNO BIODIAGNO QUANTTATI [place] [address] KELLY KUHN TRANSVAGI 0 PRIMARY DON [facility] URNLS DIP 54882 LABORATOR LABORATOR 0 Y & Y & STICK/TAB BIODIAGNO BIODIAGNO LET RGNT STICS STICS AUTO W/O MICROSCOP Y CYTP 86873 [facility] CERV/VAG 0 CYTOLOGY CYTOLOGY AUT[employer] LAYER PREP MNL SCREEN CONTRACEP S4993 JASON ARIASON TIVE 0 [facility] CONTROL CONTRACEP S4993 JASON GOMEZ TIVE 0 [facility] CONTROL OPH 59103 JANINA SANDOVAL [facility] MEDICAL 0 VISION XM&EVAL COMPRE NEW PT 1/> VST CONTRACEP S4993 GOMEZ JASON TIVE 0 [facility] CONTROL T T SHAVING 30311 Nyasia CAVAZOS SKIN 0 CARE G LESION 1 ASSOCIATE TRUNK/ARM S /LEG DIAM 0.5CM/< EXC B9 11245 Nyasia CAVAZOS LESION 0 CARE G MRGN XCP ASSOCIATE SK TG S T/A/L 0.5 CM/< ECHO 88160 [facility] R-T 0 PHYSICIAN ANTHONY Ospina 2D S GROUP W/WOM-MOD E COMPL SPEC&COLR D RADIOLOGI 90816 [place] Chelsie MADDOX 0 MEDICAL OMAR Mike EXAMINATI IMAGING ON CHEST ASSOCIATE SINGLE S VIEW FRONTAL BLOOD 33343 Nyasia CAVAZOS COUNT 0 CARE G COMPLETE ASSOCIATE AUTO&AUTO S DIFRNTL WBC BLOOD 01622 Nyasia CAVAZOS COUNT 0 CARE G COMPLETE ASSOCIATE AUTO&AUTO S DIFRNTL WBC Encounters Encounter Start End Date Code Location Performer Type Date OFFICE 02086 [facility] LU 7 7 PHYSICIAN Royer RM 45 S GROUP MINUTES [facility] 7 [facility] 7 7 [facility] - 6 6 [facility] OFFICE 87473 FAMILY GORGE OUTPATIEN 6 6 CARE TORI T VISIT ASSOCIATE 15 S MINUTES [facility] - 5 5 [facility] 5 5 [facility] INC T OFFICE 63400 [facility] VILLAVICENCIO OUTPATIEN 5 5 PHYSICIAN DORIAN T VISIT S GROUP 15 MINUTES PERIODIC 68302 KELLY FERGUSON FALGUNI PREVENTIV 5 5 PRIMARY E MED EST CARE PATIENT CENTER 18-39 YRS [facility] - 5 5 [facility] INC T OFFICE 60123 [facility] VILLAVICENCIO OUTPATIEN 5 5 PHYSICIAN DORIAN T VISIT S GROUP 25 MINUTES OFFICE 47456 KELLY FERGUSON FALGUNI OUTPATIEN 5 5 PRIMARY T VISIT CARE 15 CENTER MINUTES OFFICE 27769 BRACKEN BRACKEN OUTPATIEN 5 5 [facility] 10 [facility] T OFFICE 07089 FAMILY GORGE OUTPATIEN 5 5 CARE TORI T VISIT ASSOCIATE 15 S MINUTES OFFICE 08650 BRACKEN BRACKEN OUTPATIEN 5 5 [facility] T VISIT 10 [facility] - 5 5 [facility] OUTPATIEN INC T OFFICE 08632 BRACKEN BRACKEN OUTPATIEN 5 5 [facility] T VIS[facility] 10 [facility] T OFFICE 93707 BRACKEN BRACKEN OUTPATIEN 4 4 [facility] T VISIT 10 [facility] T OFFICE 27668 FAMILY MULBERRY OUTPATIEN 4 4 CARE EDEN T VISIT ASSOCIATE 15 S MINUTES PERIODIC 12540 BRACKEN BRACKEN PREVENTIV 4 4 [facility] E MED EST PATIENT [facility] 18-39 YRS T T OFFICE 23144 BRACKEN BRACKEN OUTPATIEN 4 4 [facility] V[facility] T T OFFICE 79585 ANNBERRY MULBERRY OUTPATIEN 4 4 DEEN EDEN T VISIT 15 MINUTES [facility] - [facility] 4 [facility] T OFFICE 88844 [facility]PATI[facility] 4 4 [facility] V[facility] 10 [facility] MIN[facility] T T [facility] - 4 4 [facility]PATI[facility] INC T OFFICE 28098 VILLAVICENCIO VILLAVICENCIO OUTPATIEN 4 4 DORIAN DORIAN T NEW 45 MINUTES OFFICE 88236 FABIANA FABIANA OUTPATIEN 4 4 R H R H T VISIT 15 MINUTES [facility] 1 [facility] INC T OFFICE 01038 [facility] FALLUJI OUTPATIEN 1 1 PHYSICIAN HENRI T VISIT S GROUP 25 MINUTES OFFICE 56938 [facility] FALLUJI OUTPATIEN 1 1 PHYSICIAN HENRI T VISIT S GROUP 25 MINUTES [facility] - 1 1 [facility] OUTPATI[facility] INC T OFFICE 08302 JASON GOMEZ OUTPATIEN 1 1 [facility] T VISIT [facility] 10 DEPARTVT DEPARTVT MINUTES [facility] - 1 1 [facility]PAT[facility] INC [facility] 1 [facility] INC T OFFICE 38001 [facility] VILLAVIC[facility] OUTPATIEN 0 0 HEALTH DORIAN T VISIT [facility]IN[facility] OF 15 VLADISLAV MINUTES [facility] - 0 0 [facility] - 0 0 [facility] OUTPATIEN INC T OFFICE 14868 [facility]OMEN'S VILLAVICENCIO OUTPATIEN 0 0 HEALTH DORIAN T VISIT [facility]IN[facility] 15 VLADISLAV MINUTES OFFICE 13935 [facility] VILLAVICENCIO CONSULTAT 0 0 HEALTH DORIAN ION [facility] NEW/ESTAB VLADISLAV PATIENT 60 MIN OFFICE 93328 FAMILY GORGE BARKERPATIEN 0 0 CARE T VISIT ASSOCIATE 25 S MINUTES OFFICE 06352 KELLY KUHN OUTPATIEN 0 0 PRIMARY DON T VISIT CARE 15 CENTER MINUTES PERIODIC 11319 JASON GOMEZ PREVENTIV 0 0 CO CO E MED EST HEALTH HEALTH PATIENT [facility] 18-39 YRS OFFICE 22654 JASON GOMEZ OUTPATIEN 0 0 CO CO T VISIT HEALTH HEALTH 10 [facility] MINUTES OFFICE 55390 JASON GOMEZ OUTPATIEN 0 0 CO [facility] T VISIT HEALTH HEALTH 10 [facility] MINUTES T T OFFICE 44031 Nyasia CAVAZOSPATIEN 0 0 CARE G T VISIT ASSOCIATE 15 S MINUTES OFFICE 15939 Nyasia CAVAZOSPATIEN 0 0 CARE G T VISIT ASSOCIATE 15 S MINUTES
--- OUTSIDE RECORDS SUMMARY | 2016-08-15 12:44 | External Medical Summary Rpt ---
Author Author , RAY Yuen RAY Address Unknown Phone [email or web address] Care Team Providers Care Screen Tacker Name Role Phone MAYORGA ALL, MAYORGA ALL Unavailable Unavailable [facility] Unavailable Unavailable DEPARTMENT, [facility] Unavailable Unavailable DEPARTMENT, [facility] DEPARTMENT VILLAVICENCIO DORIAN, VILLAVICENCIO Unavailable Unavailable [facility]ILL[facility]ICENC[facility] DORIAN, VILLAVICENCIO Unavailable Unavailable [facility], [facility] Un[facility] Un[facility] Unavailable Unavailable [facility] JOSIE Murrell, GORGE Murrell Unavailable Unavailable GORGE VALLE, GORGE Unavailable Unavailable Nyasia GILLETTE COOPER, Unavailable Unavailable MARIANNE CARDOZO Unavailable Unavailable ANTHONY KRAFT, Unavailable Unavailable [facility] Unavailable Un[facility], [facility] Unavailable Unavailable INC, [facility] Unavailable Unavailable HOSPITAL P, [facility] P SANDOVAL JESSICA, SANDOVAL JESSICA Unavailable Unavailable SANDOVAL JESSICA, SANDOVAL JESSICA Unavailable Unavailable [facility], Unavailable Unavailable [facility] Unavailable Unavailable IMAGING ASS, [facility] JOE VANI Unavailable [...] Unavailable Unavailable LAB, PATHOLOGY & CYTOLOGY LAB [facility] Unavailable Unavailable DEPARTMA, [facility] Unavailable Unavailable [facility] Unavailable Unavailable DEPARTMENT, [facility] DEPARTMENT MARTHA THOMAS Unavailable Unavailable ELÍAS PATEL, ELÍAS Unavailable Unavailable AMANDA [facility] Unavailable [facility]available [facility] Unavailable [facility]available LLC., 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 R002 PALPITATION 07-14-2016 [facility] S PHYSICIANS GROUP [id number] PAIN IN 12-18-2015 [place] [facility] [id number] UNS INJURY 12-18-2015 [place] LT LOWER MEDICAL LEG INITIAL IMAGING ASS ENCOUNTER Z23 ENCOUNTER 11-26-2015 MENDY LUQUE FOR HEALTH IMMUNIZATIO DEPARTMENT N Z302 ENCOUNTER 12-10-2014 [facility] FOR PHYSICIANS STERILIZATI GROUP ON [id number] ENCOUNTER 12-07-2014 [facility] PREPROCEDUR INC AL LABORATORY EXAM Z309 ENCOUNTER 12-07-2014 [facility] CONTRACEPTI INC VE MANAGEMENT UNS Z3009 ENCOUNTER 11-27-2014 [facility] OT GENERAL PHYSICIANS GROUP SLOT FLOOR PERSON&ADV ICE CONTRACEPT Z9851 TUBAL 11-27-2014 [facility] LIGATION PHYSICIANS STATUS GROUP 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 Z1151 ENCOUNTER 11-14-2014 LABORATORY FOR JOE OF SCREENING VANI H FOR HUMAN PAPILLOMAVI MILO Z124 ENCOUNTER 11-14-2014 LABORATORY OTHER JOE OF SCREENING VANI H MALIG NEOPLASM CERVIX G22927 ENCOUNTER 11-13-2014 KELLY LUQUE MAINSPRING WINDER AND OILER EXAM PRIMARY GENERAL RTN CARE CENTER W/O ABNORMAL FIND Z713 DIETARY 11-13-2014 KELLY [facility] COUNSELING PRIMARY AND CARE CENTER SURVEILLANC E Z719 COUNSELING 11-13-2014 [facility] UNSPECIFIED PRIMARY CARE CENTER V0481 NEED 11-01-2014 MENDY LUQUE PROPHYLACTI HEALTH C DEPARTMENT VACCINATION &INOCULATIO N FLU 1319 UNSPECIFIED 10-25-2014 [facility] PHYSICIANS TRICHOMONIA GROUP SIS 12203 UNSPECIFIED 10-25-2014 [facility] VAGINITIS PHYSICIANS AND GROUP VULVOVAGINI TIS V2509 OTH GENERAL 10-25-2014 [facility] PHYSICIANS CNSL&ADVICE GROUP CONTRACEPT MANAGEMENT V692 PROBLEMS 10-25-2014 [facility] RELATED TO [facility] HIGH-RISK INC SEXUAL BEHAVIOR 6235 LEUKORRHEA 09-19-2014 KELLY LUQUE NOT PRIMARY SPECIFIED CARE CENTER INFECTIVE V2549 SURVEILLANC 08-20-2014 MENDY LUQUE E OTH PREV HEALTH PRSC DEPARTMENT CONTRACEPT METHOD 0542 HERPETIC 07-05-2014 [facility] GINGIVOSTOM ASSOCIATES ATITIS 7464 CONGENITAL 07-05-2014 [facility] CARE INSUFFICIEN ASSOCIATES CY OF AORTIC VALVE [...] VILLAVICENCIO DORIAN SYMPTOM ASSOC W/FEMALE GENITAL ORGANS 61638 ABDOMINAL 03-23-2013 [facility] DORIAN PAIN, LEFT LOWER QUADRANT 13750 REGULAR 03-22-2013 SANDOVAL JESSICA ASTIGMATISM 6250 DYSPAREUNIA 03-16-2013 [facility]ENC[facility] DORIAN 13582 ABDOMINAL 03-16-2013 VILL[facility]ICENCIO DORIAN PAIN, UNSPECIFIED SITE 4871 INFLUENZA 02-20-2013 FABIANA R WITH OTHER H RESPIRATORY MANIFESTATI ONS 39452 HEMATURIA 06-25-2010 [place] U[facility]PECIFIED [facility] 38209 ABDOMINAL 06-25-2010 NICHOLAS PAIN OTHER [facility] SPECIFIED INC SITE 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 50125 SUPRAVENTRI 05-20-2010 [facility] CULAR PHYSICIANS PREMATURE GROUP BEATS 8798 OPEN WOUND 05-10-2010 COMBINED UNSPEC SITE PHYSICIANS WITHOUT LA MENTION COMP 2662 OTHER 03-10-2010 JASON Cano-COMPLEX CO HEALTH DEFICIENCIE DEPARTME S V2541 SURVEILLANC 03-10-2010 JASON Nava PREV CO HEALTH PRESCRIBED DEPARTME CONTRACEPT PILL 7466 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 04-24-2009 [facility] LATE EFFECT ASSOCIATES CEREBROVASC ULAR DISEASE 7804 DIZZINESS 04-24-2009 [facility] GIDDINESS GROUP 89993 CHEST PAIN 04-24-2009 [place] U[facility]PECIFIED [facility]AGING ASSOC[facility] 85365 UNSPECIFIED 04-17-2009 [facility] VIRAL [facility] INFECTION [...] 00 6- 0- 00 00 IC ve TX 98 20 20 43 IL 00 17 17 31 PH 3 88 AR 10 MA CY MG TA BL ET ME 57 05 06 60 30 00 CL Ac TO 23 -2 -2 .0 00 IN ti TX 70 7- 3- 00 00 IC ve [...] PH CE 5 81 AR TA MA PA CY NO PH N 37 .5 -3 [...] 23 -2 -2 .0 00 IN ti TX 70 8- 6- 00 00 IC ve OL 10 20 20 42 OL 19 17 17 40 PH 9 92 AR TA MA RT CY RA TE 50 MG TA B ME 00 03 04 60 30 00 CL Ac TO 59 -3 -2 .0 00 IN ti TX 10 1- 8- 00 00 IC ve [...] PH CE 5 50 AR TA MA PA CY NO PH N 37 .5 -3 25 ME 00 03 03 60 30 00 CL Ac TO 59 -0 -3 .0 00 IN ti TX 10 3- 1- 00 00 IC ve [...] PH CE 5 77 AR TA MA PA CY NO PH N 37 .5 -3 25 ME 00 02 03 60 30 00 CL Ac TO 59 -0 -0 .0 00 IN ti TX 10 3- 3- 00 00 IC ve [...] PH CE 5 55 AR TA MA PA CY NO PH N 37 .5 -3 [...] 59 -0 -0 .0 00 IN ti TX 10 2- 3- 00 00 IC ve [...] PH CE 5 55 AR TA MA PA CY NO PH N 37 .5 -3 [...] 59 -0 -0 .0 00 IN ti TX 10 5- 9- 00 00 IC ve [...] -0 -1 .0 IN 38 OP ti TX 40 2- 4- 00 IC 21 ER ve OL 40 20 20 OL 50 11 11 PH RADHA 1 AR HN VERDIN MA G CC CY ER LL C 50 MG TA B CI 00 03 04 2 15 30 CL 23 CO Ac TA 37 -1 -1 .0 IN 48 OP ti LO 86 7- 4- 00 IC 67 ER ve TX 23 20 20 AM 30 11 11 [...] 7- 7- 00 IC 67 ER ve TX 23 20 20 AM 30 11 11 PH RADHA 1 AR HN HB MA G R CY 40 LL MG C TA BL ET ME 49 03 03 4 60 30 CL 23 CO Ac TO 88 -0 -1 .0 IN 38 OP ti TX 40 2- 4- 00 IC 21 ER [...] -1 -1 .0 IN 31 OP ti TX 40 4- 4- 00 IC 78 ER [...] -1 -1 .0 IN 31 OP ti TX 40 4- 3- 00 IC 78 ER [...] -1 -1 .0 IN 31 OP ti TX 40 4- 4- 00 IC 78 ER [...] -1 -1 .0 IN 31 OP ti TX 40 4- 0- 00 IC 78 ER [...] -1 -1 .0 IN 31 OP ti TX 40 4- 1- 00 IC 78 ER [...] -1 -1 .0 IN 31 OP ti TX 40 4- 4- 00 IC 78 ER [...] -1 -1 .0 IN 23 OP ti TX 40 0- 2- 00 IC 11 ER [...] -1 -1 .0 IN 23 OP ti TX 40 0- 3- 00 IC 11 ER [...] -1 -0 .0 IN 23 OP ti TX 40 0- 9- 00 IC 11 ER [...] -1 -1 .0 IN 23 OP ti TX 40 0- 1- 00 IC 11 ER [...] -1 -1 .0 IN 23 OP ti TX 40 0- 2- 00 IC 11 ER [...] -1 -1 .0 IN 23 OP ti TX 40 0- 0- 00 IC 11 ER [...] K. 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 ETHNICI WHITE, complet TY 013 NON-HIS ed [...] Procedure DOS Code Location Performer Comment ECG 25733 NICHOLAS PETERSON ROUTINE 7 [facility] ECG INC INC W/LEAST 12 LDS TRCG ONLY W/O I&R ECG 61947 [facility] MARTHA ROUTINE 7 PHYSICIAN ECG S GROUP W/LEAST 12 LDS I&R ONLY ECHO 22388 NICHOLAS PETERSON TTHRC R-T 7 [facility] 2D INC INC W/WOM-MOD E COMPL SPEC&COLR D RADIOLOGI 05934 [place] MAYORGA ALL C 6 MEDICAL EXAMINATI IMAGING ON KNEE 3 ASS VIEWS IIV4 VACC 58961 MENDY BROOKE SPLIT 6 CO HEALTH CO HEALTH VIRUS 0.5 ML DOS DEPARTMEN DEPARTMEN FOR IM T T USE LAPAROSCO 32884 NICHOLAS PETERSON PY W/PLMT 5 [facility] INC INC OCCLUSION DEVICE OVIDUCTS ANES IPER 03215 [facility] LWR ABD 5 ANESTH AMANDA W/LAPS OF THE TUBAL BLUE LIGATION/ TRANSECT ECG 96071 NICHOLAS MENDOZA JR ROUTINE 5 [facility] W/LEAST P 12 LDS I&R ONLY INJECTION J2710 NICHOLAS PETERSON 5 [facility] NEOSTIGMI INC INC NE METHYLSUL FATE UP TO 0.5 MG COLLECTIO 44194 NICHOLAS PETERSON N VENOUS 5 [facility] BLOOD INC INC VENIPUNCT URE CYANOCOBA 24069 NICHOLAS PETERSON JULISSA 5 [facility] VITAMIN INC INC B-12 COMPREHEN 14067 NICHOLAS PETERSON SIVE 5 [facility] METABOLIC INC INC PANEL GONADOTRO 04862 NICHOLAS PETERSON PIN 5 [facility] CHORIONIC INC INC QUALITATI VE BLOOD 74329 NICHOLAS PETERSON COUNT 5 [facility] COMPLETE INC INC AUTO&AUTO DIFRNTL WBC IADNA 81246 LABORATOR LABORATOR HUMAN 5 Y JOE OF Y JOE OF PAPILLOMA VANI VANI VIRUS H H HIGH-RISK TYPES OPHTH 39266 [facility] 5 XM&EVAL COMPRHNSV ESTAB PT 1/> CYTP C/V 14744 LABORATOR LABORATOR AUTO THIN 5 Y JOE OF Y JOE OF LYR VANI VANI PREPJ SCR H H MNL RESCR PHYS IIV4 VACC 14860 MENDY BROOKE SPLIT 5 CO HEALTH CO HEALTH VIRUS 0.5 ML DOS DEPARTMEN DEPARTMEN FOR IM T T USE SMR PRIM 02089 [facility] VILLAVICENCIO SRC WET 5 PHYSICIAN DORIAN [facility] S GROUP NFCT AGT IADNA 76620 NICHOLAS PETERSON NEISSERIA 5 [facility] INC INC GONORRHOE AE AMPLIFIED PROBE TQ IADNA 26570 NICHOLAS PETERSON CHLAMYDIA 5 [facility] INC INC TRACHOMAT IS AMPLIFIED PROBE TQ SMR PRIM 43635 KELLY FERGUSON FALGUNI SRC WET 5 [facility] NFCT AGT CENTER EXTERNAL 98790 NICHOLAS PETERSON ECG 5 [facility] SCANNING INC INC ANALYSIS REPORT XTRNL ECG 90689 NICHOLAS PETERSON & 48 HR 5 [facility] RECORDING INC INC XTRNL ECG 25018 NICHOLAS MENDOZA JR 5 [facility] S RHYTHM P W/I&R UP TO 48 HRS COMPREHEN 08167 COMBINED COMBINED SIVE 5 PHYSICIAN PHYSICIAN METABOLIC S LA S LA PANEL 25 53514 COMBINED COMBINED HYDROXY 5 PHYSICIAN PHYSICIAN INCLUDES S LA S LA FRACTIONS IF PERFORMED CYANOCOBA 49180 COMBINED COMBINED JULISSA 5 PHYSICIAN PHYSICIAN VITAMIN S LA S LA B-12 ANTIBODY 36792 LAB JOE LAB JOE ANA-B 4 VANI VANI ARR EB [employer] [facility] VIRUS EARLY ANTIGEN EA ANTIBODY 44234 LAB JOE LAB JOE ANA-B 4 VANI VANI ARR [facility] [employer] VIRUS NUCLEAR AG EBNA ANTIBODY 37041 LAB JOE LAB JOE ANA-B 4 VANI VANI ARR EB [employer] VIRUS VIRAL CAPSID VCA ANTISTREP 03073 LAB JOE LAB JOE TOLYSIN O 4 VANI VANI TITER [employer] IAADIADOO 80192 FAMILY MULBERRY 4 CARE EDEN STREPTOCO ASSOCIATE CCUS S GROUP A BLOOD 19183 FAMILY MULBERRY COUNT 4 CARE EDEN COMPLETE ASSOCIATE AUTO&AUTO S DIFRNTL WBC DUP-SCAN 65158 NICHOLAS PETERSON XTR VEINS 4 [facility] INC [place] [address] SAUD VILLAVICENCIO TRANSVAGI 4 DORIAN DORIAN NAL OPHTH 15152 [facility] XM&EVAL COMPRE NEW PT 1/> VST URNLS DIP 29373 SAUD VILLAVICENCIO 4 DORIAN DORIAN STICK/TAB LET RGNT NON-AUTO W/O MICRSCP BLOOD 93256 NICHOLAS PETERSON COUNT 4 [facility] COMPLETE INC INC AUTO&AUTO DIFRNTL WBC URINE 25809 SAUD VILLAVICENCIO 4 DORIAN DORIAN TEST VISUAL COLOR CMPRSN METHS BLOOD 11286 FABIANA FABIANA COUNT 4 R H R H COMPLETE AUTO&AUTO DIFRNTL WBC COLLECTIO 35165 FABIANA FABIANA N 4 R H R H CAPILLARY BLOOD SPECIMEN IAADIADOO 10962 FABIANA FABIANA [place] [address] NICHOLAS PETERSON ABDOMEN & 1 [facility] PELVIS INC INC W/O CONTRAST MATERIAL 3D 23546 NICHOLAS PETERSON RENDERING 1 [facility] INC INC W/INTERP& POSTPROC DIFF WORK STATION CUL BACT 31468 COMBINED COMBINED XCPT 1 PHYSICIAN PHYSICIAN URINE S LA S LA BLOOD/STO OL AEROBIC ISOL SUSCEPTIB 60064 COMBINED COMBINED ILITY 1 PHYSICIAN PHYSICIAN STUDY S LA S [place] B[place] [address] NICHOLAS PETERSON ACTIVATED 1 [facility] ECG INC INC RECORD MONITOR 30 DAYS CONTRACEP S4993 JASON GOMEZ TIVE 1 [facility] DEPARTME DEPARTME CONTROL URINE 15774 NICHOLSA PETERSON 1 [facility] TEST INC [place] [address] NICHOLAS PETERSON INFUSION 1 [facility] THERAPY INC INC PROPHYLAX IS/DX EA HOUR DOPPLER 81440 [facility]NE ECHOCARD 1 PHYSICIAN HENRI PULSE S GROUP WAVE W/SPECTRA L DISPLAY ECHO 03379 [facility] PHYSICIAN HENRI HAG R-T S GROUP 2D W/PRB IMG ACQUISJ I&R DOP 71057 [facility] ECHOCARD 1 PHYSICIAN HENRI COLOR S GROUP FLOW VELOCITY MAPPING ECHO 47786 NICHOLAS SKELTONAMANDAJESUS TTHRC R-T [address] W/WOM-MOD P E COMPL SPEC&COLR D LAPAROSCO 01902 NICHOLAS PETERSON PY 0 [facility] W/[place] [address] PATHOLOGY PATHOLOGY SURG 0 & & PATHOLOGY CYTOLOGY CYTOLOGY LAB LAB GROSS&BERNARDO ROSCOPIC EXAM ANESTHESI 84839 [facility] GLE A 0 ANESTH INTRAPERI OF THE TONEAL BLUE [place] W/[place] [address] NICHOLAS PETERSON INFUSION 0 [facility] THERAPY INC INC PROPHYLAX IS/DX EA HOUR APPLICATI 9977 NICHOLAS PETERSON ON/ADMIN 0 [facility] ADHESION INC INC BARRIER SUBSTANCE S HYSTEROSC 6812 NICHOLAS PETERSON OPY 0 [facility] INC INC OTHER 6909 NICHOLAS PETERSON DILATION 0 [facility] AND INC INC CURETTAGE OF UTERUS LAPAROSCP 6581 NICHOLAS PETERSON IC LYSIS 0 [facility] ADHESIONS INC INC OVARY&FAL LOPIAN TUBE BASIC 08626 NICHOLAS PETERSON METABOLIC 0 [facility] PANEL INC INC CALCIUM TOTAL BLOOD 64931 NICHOLAS PETERSON COUNT 0 [facility] COMPLETE INC INC AUTO&AUTO DIFRNTL WBC GONADOTRO 85565 NICHOLAS PETERSON PIN 0 [facility] CHORIONIC INC INC QUALITATI VE CULTURE 02819 LABORATOR LABORATOR BACTERIAL 0 Y & Y & BIODIAGNO BIODIAGNO QUANTTATI [place] [address] KELLY [facility]N TRANSVAGI 0 [facility]IMARY DON [facility] URNLS DIP 22391 LABORATOR LABORATOR 0 Y & Y & STICK/TAB BIODIAGNO BIODIAGNO LET RGNT STICS STICS AUTO W/O MICROSCOP Y CYTP 42226 [facility] CERV/VAG 0 CYTOLOGY CYTOLOGY AUT[facility] LLC. LAYER PREP MNL SCREEN CONTRACEP S4993 JASON ARIASON TIVE 0 CO [facility] CONTROL CONTRACEP S4993 JASON GOMEZ TIVE 0 CO [facility] CONTROL OPH 75307 JANINA SANDOVAL [facility] MEDICAL 0 VISION XM&EVAL COMPRE NEW PT 1/> VST CONTRACEP S4993 GOMEZ JASON TIVE 0 [facility] CONTROL T T SHAVING 79634 Nyasia CAVAZOS SKIN 0 CARE G LESION 1 ASSOCIATE TRUNK/ARM S /LEG DIAM 0.5CM/< EXC B9 34140 Nyasia CAVAZOS LESION 0 CARE G MRGN XCP ASSOCIATE SK TG S T/A/L 0.5 CM/< ECHO 52349 [facility], [facility] PHYSICIAN ANTHONY Ospina 2D S GROUP W/WOM-MOD E COMPL SPEC&COLR D RADIOLOGI 14810 [place] Chelsie MADDOX 0 MEDICAL OMAR Mike EXAMINATI IMAGING ON CHEST ASSOCIATE SINGLE S VIEW FRONTAL BLOOD 49383 Nyasia CAVAZOS COUNT 0 CARE G COMPLETE ASSOCIATE AUTO&AUTO S DIFRNTL WBC BLOOD 33900 Nyasia CAVAZOS COUNT 0 CARE G COMPLETE ASSOCIATE AUTO&AUTO S DIFRNTL WBC Encounters Encounter Start End Date Code Location Performer Type Date OFFICE 87980 [facility] MAR[facility]A LU 7 7 PHYSICIAN Royer RM 45 S GROUP MINUTES [facility] - 7 7 [facility] - 7 7 [facility]PATIEN [facility] NICHOLAS - 6 6 [facility]EN [facility] OFFICE 46165 FAMILY GORGE OUTPATIEN 6 6 CARE TORI T VISIT ASSOCIATE 15 S MINUTES [facility]OSP[facility] - 5 5 [facility] - 5 5 [facility] OUT[facility]IEN INC T OFFICE 02924 [facility] VILLAV[facility]ENC[facility] OUTPATIEN 5 5 PHYSICIAN DORIAN T VISIT S GROUP 15 MINUTES PERIODIC 27037 KELLY FERGUSON FALGUNI PREVENTIV 5 5 PRIMARY E MED EST CARE PATIENT CENTER 18-39 YRS [facility]OSPITAL [facility] - 5 5 [facility] OUTPATIEN INC T OFFICE 53428 [facility] VILL[facility] OUTPATIEN 5 5 PHYSICIAN DORIAN T VISIT S GROUP 25 MINUTES OFFICE 46803 KELLY FERGUSON FALGUNI OUTPATIEN 5 5 PRIMARY T VISIT CARE 15 CENTER MINUTES OFFICE 84889 [facility] OUTPATIEN 5 5 CO [facility] CO HEALTH T VISIT 10 [facility] T OFFICE 77455 FAMILY GORGE OUTPATIEN 5 5 CARE TORI T VISIT ASSOCIATE 15 S MINUTES OFFICE 04714 [facility] OUTPATIEN 5 5 [facility]ALTH T VISIT 10 [facility] HOSPITAL NICH[facility]AS - 5 5 [facility] OUTPATIEN INC T OFFICE 07903 [facility]ACK[facility] OUTPATIEN 5 5 [facility]ALTH T VISIT 10 [facility] T OFFICE 86674 [facility]ACK[facility] BRACKEN OUTPATIEN 4 4 CO [facility] CO HEALTH T VISIT 10 [facility] T OFFICE 16089 FAMILY MULBERRY OUTPATIEN 4 4 CARE EDEN T VISIT ASSOCIATE 15 S MINUTES PERIODIC 10323 [facility]ACK[facility] BRACKEN PREVENTIV 4 4 CO [facility]ALTH CO HEALTH E MED EST PATIENT [facility] 18-39 YRS T T OFFICE 82684 [facility]ACK[facility] OUTPATIEN 4 4 [facility] V[facility] T T OFFICE 78321 ANNBERRY MULBERRY OUTPATIEN 4 4 EDEN EDEN T VISIT 15 MINUTES HOSPITAL [facility] - 4 4 [facility] OUTPATIEN INC T OFFICE 55040 [facility]ACK[facility]ACKEN OUTPATIEN 4 4 [facility] T VISIT 10 [facility] T T HOSPITAL [facility]AS - 4 4 [facility] OUTPATIEN INC T OFFICE 15024 VILLAVICECNIO VILLAVICENCIO OUTPATIEN 4 4 DORIAN DORIAN T NEW 45 MINUTES OFFICE 26275 FABIANA FABIANA OUTPATIEN 4 4 R H R H T VISIT 15 MINUTES HOSPITAL [facility] - 1 1 [facility] OUTPATIEN INC T OFFICE 65460 [facility] FALLUJI OUTPATIEN 1 1 PHYSICIAN HENRI T VISIT S GROUP 25 MINUTES OFFICE 29164 [facility] FALLUJI OUTPATIEN 1 1 PHYSICIAN HENRI T VISIT S GROUP 25 MINUTES HOSPITAL [facility] - 1 1 [facility] OUTPATIEN INC T OFFICE 82575 JASON GOMEZ OUTPATIEN 1 1 CO CO T VISIT HEALTH [facility] 10 DEPARTMA DEPARTMA MINUTES HOSPITAL [facility] - 1 1 [facility] OUTPATIEN INC [facility] - 1 1 [facility] OUTPATIEN INC T OFFICE 47619 [facility] OUTPAT[facility] 0 0 HEALTH DORIAN T VISIT CLINIC OF 15 VLADISLAV MINUTES HOSPITAL [facility] - 0 0 [facility]EN [facility] N[facility]OL[facility] - 0 0 [facility] OUTPATIEN INC T OFFICE 85250 [facility] OUTPATIEN 0 0 HEALTH DORIAN T VISIT CLINIC OF 15 VLADISLAV MINUTES OFFICE 82123 [facility] CONSULTAT 0 0 HEALTH DORIAN ION CLINIC OF NEW/ESTAB VLADISLAV PATIENT 60 MIN OFFICE 14795 FAMILY GORGE BARKERPATIEN 0 0 CARE T VISIT ASSOCIATE 25 S MINUTES OFFICE 90443 [facility] OUTPATIEN 0 0 PRIMARY DON T VISIT CARE 15 CENTER MINUTES PERIODIC 31845 JASON GOMEZ PREVENTIV 0 0 CO CO E MED EST HEALTH HEALTH PATIENT [facility] 18-39 YRS OFFICE 78602 JASON GOMEZ OUTPATIEN 0 0 CO CO T VISIT HEALTH HEALTH 10 [facility] MINUTES OFFICE 89148 JASON GOMEZ OUTPATIEN 0 0 CO CO T VISIT HEALTH HEALTH 10 [facility] MINUTES T T OFFICE 29590 Nyasia CAVAZOSPATIEN 0 0 CARE G T VISIT ASSOCIATE 15 S MINUTES OFFICE 60510 Nyasia CAVAZOSPATIEN 0 0 CARE G T VISIT ASSOCIATE 15 S MINUTES
--- OUTSIDE RECORDS SUMMARY | 2016-08-15 12:48 | External Medical Summary Rpt ---
Author Author , RAY Organization RAY Address Unknown Phone [email or web address] Care Team Providers Care Remote Recruiter Name Role Phone MAYORGA ALL, MAYORGA ALL Unavailable Unavailable [employer] [facility] Unavailable Unavailable DEPARTMENT, [facility] Unavailable Unavailable DEPARTMENT, [facility] VILLAVICENCIO DORIAN, VILLAVICENCIO Unavailable Unavailable DORIAN VILLAVICENCIO DORIAN, VILLAVICENCIO Unavailable Unavailable [facility], Un[facility] Un[facility] Unavailable [place], [facility] Unavailable Unavailable [facility], [facility] JOSIE Murrell, GORGE Murerll Unavailable Unavailable GORGE VALLE, GORGE Unavailable Unavailable Nyasia GILLETTE, GORGE, Unavailable Unavailable Nyasia Molina IRIS CLAYTON, Unavailable Unavailable IRIS CLAYTON FALLUPORTIA ÁLVAREZ, FALLUPORTIA Unavailable Unavailable ANTHONY KRAFT, Unavailable Unavailable [facility] Unavailable Unavailable ASSOCI[facility], [facility] Un[facility] Unavailable INC, [facility] Un[facility] P, [facility] SANDOVAL JESSICA, SANDOVAL JESSICA Unavailable Unavailable SANDOVAL JESSICA, SANDOVAL JESSICA Unavailable Unavailable [facility], Unavailable Unavailable [facility] Unavailable Unavailable IMAGING ASS, [facility] JOE VANI Unavailable [...] ROBLEDO DWI, KELLY Unavailable Unavailable JR DWI OMAR MADDOX, Unavailable Unavailable OMAR MADDOX MULBERRY EDEN, Unavailable Unavailable MULBERRY EDEN MULBERRY EDEN, Unavailable Unavailable MULBERRY EDEN [facility], Unavailable Unavailable [facility], Unavailable Unavailable [facility] Unavailable Unavailable LAB, [facility] Unavailable Unavailable LAB, [facility] Unavailable Unavailable DEPARTWI, [facility] Unavailable Unavailable [facility] Unavailable Unavailable DEPARTMENT, [facility] DEPARTMENT MARTHA THOMAS Unavailable Unavailable ELÍAS PATEL, ELÍAS Unavailable Unavailable AMANDA [facility] Unavailable Unavailable LLC., [facility] Unavailable Unavailable LLC., [facility] # Unavailable Unavailable [id number], [facility] # [id number] HATTIE NELSON, HATTIE Unavailable Unavailable [facility] Unavailable Unavailable OF [place], [facility] [place] FERGUSON FALGUNI, MARTY FALGUNI Unavailable Unavailable Purpose Continuity of Care Document - 04-17-2009 through 2016 Problems Code Diagnosis DOS Provider Status I10 ESSENTIAL 07-14-2016 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 S PHYSICIANS GROUP [id number] PAIN IN 12-18-2015 [place] [facility] [id number] UNS INJURY 12-18-2015 [place] LT LOWER MEDICAL LEG INITIAL IMAGING ASS ENCOUNTER Z23 ENCOUNTER 11-26-2015 [facility] FOR HEALTH IMMUNIZATIO DEPARTMENT N Z302 ENCOUNTER 12-10-2014 [facility] FOR PHYSICIANS STERILIZATI GROUP ON [id number] ENCOUNTER 12-07-2014 [facility] PREPROCEDUR INC AL LABORATORY EXAM Z309 ENCOUNTER 12-07-2014 [facility] CONTRACEPTI INC VE MANAGEMENT UNS Z3009 ENCOUNTER 11-27-2014 [facility] OTH GENERAL PHYSICIANS GROUP PAVING FOREMAN&ADV ICE CONTRACEPT Z9851 TUBAL 11-27-2014 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 PHYS[facility]IANS TRICHOMONIA GROUP SIS 18295 UNSPECIFIED 10-25-2014 [facility] VAGINITIS PHYSICIANS AND GROUP VULVOVAGINI TIS V2509 OTH GENERAL 10-25-2014 [facility] PH[facility]ANS CNSL&ADVICE GROUP CONTRACEPT MANAGEMENT V692 PROBLEMS 10-25-2014 [facility] RELATED TO [facility] HIGH-RISK INC SEXUAL BEHAVIOR 6235 LEUKORRHEA 09-19-2014 KE[facility] CO NOT PRIMARY SPECIFIED CARE CENTER INFECTIVE V2549 SURVEILLANC 08-20-2014 [facility] CO E OTH PREV HEALTH PRSC DEPARTMENT CONTRACEPT METHOD 0542 HERPETIC 07-05-2014 [facility] GINGIVOSTOM ASSOCIATES ATITIS 7464 CONGENITAL 07-05-2014 [facility] INSUFFICIEN ASSOCIATES CY OF AORTIC VALVE 7840 HEADACHE 07-05-2014 [facility] 7851 PALPITATION 07-05-2014 [facility] S ASSOCIATES 4019 UNSPECIFIED 03-14-2014 [facility] ESSENTIAL PHYSICIANS HYPERTENSIO LA N 460 ACUTE 12-02-2013 LAB JOE NASOPHARYNG VANI ITIS HOLDINGS 7821 RASH AND 12-01-2013 [facility] OTHER ASSOCIATES NONSPECIFIC SKIN ERUPTION V2689 OTHER 11-08-2013 [facility] SPECIFIED HEALTH PROCREATIVE DEPARTMENT MANAGEMENT 7295 PAIN IN 08-07-2013 MULBERRY SOFT EDEN TISSUES OF LIMB 6259 UNSPEC 03-23-2013 VILL[facility]IC[facility]IO DORIAN SYMPTOM ASSOC W/FEMALE GENITAL ORGANS 35643 ABDOMINAL 03-23-2013 [facility]ILL[facility] DORIAN PAIN, LEFT LOWER QUADRANT 13041 REGULAR 03-22-2013 SANDOVAL JESSICA ASTIGMATISM 6250 DYSPAREUNIA 03-16-2013 [facility]ILL[facility] DORIAN 06874 ABDOMINAL 03-16-2013 VILL[facility]ICENCIO DORIAN PAIN, UNSPECIFIED SITE 4871 INFLUENZA 02-20-2013 FABIANA R WITH OTHER H RESPIRATORY MANIFESTATI ONS 92480 HEMATURIA 06-25-2010 [facility] IM[facility]ING ASS 80887 ABDOMINAL 06-25-2010 [facility] PAIN OTHER [facility] SPECIFIED INC SITE 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 GIDDINESS GROUP 53512 CHEST PAIN 04-24-2009 [place] UNSPECIFIED [facility]ICAL IMAGING ASSOCIATES 97837 UNSPECIFIED 04-17-2009 [facility] VIRAL [facility]ATES INFECTION [...] PH CE 5 81 AR TA MA WV CY NO PH N 37 .5 -3 [...] PH CE 5 50 AR TA MA WV CY NO PH N 37 .5 -3 25 ME 00 03 04 60 30 00 CL Ac TO 59 -3 -2 .0 00 IN ti TX 10 1- 8- 00 00 IC ve OL 46 20 20 42 OL 21 17 17 40 PH 0 92 AR TA MA RT CY RA TE 50 MG TA B ME 00 03 03 60 30 00 [...] PH CE 5 77 AR TA MA WV CY NO PH N 37 .5 -3 [...] PH CE 5 55 AR TA MA WV CY NO PH N 37 .5 -3 25 ME 00 01 02 60 30 00 CL Ac TO 59 -0 -0 .0 00 IN ti TX 10 2- 3- 00 00 IC ve OL 46 20 20 40 OL 21 17 17 74 PH 0 71 AR TA MA RT CY RA TE 50 MG TA B NI 37 01 02 28 28 00 [...] CY MG #5 TA 91 BL ET TR 00 12 01 45 15 00 CL Ac AM 37 -0 -1 .0 00 IN ti AD 88 9- 3- 00 00 IC ve OL 08 20 20 41 -A 80 16 17 57 PH CE 5 55 AR TA MA WV CY NO PH N 37 .5 -3 25 DI 51 12 01 12 30 00 CL Ac AZ 86 -0 -1 0. 00 IN ti EP 20 8- 3- 00 00 IC ve AM 06 20 20 0 41 5 31 16 17 05 PH 0 31 AR MG MA CY TA BL ET ME 00 12 01 10 5 00 CL Ac TR 59 -0 -1 .0 00 IN ti ON 15 8- 3- 00 00 IC ve ID 21 20 20 40 AZ 50 16 17 81 PH OL 5 64 AR E MA 50 CY 0 MG TA BL ET ME 00 12 01 [...] 50 MG TA B DI 00 10 11 2 90 30 CL 22 CO Ac AZ 17 -0 -0 .0 IN 43 OP ti EP 23 5- 3- 00 IC 62 ER ve AM 92 20 20 2 56 10 10 PH RADHA 0 AR HN MG MA G CY TA BL LL ET C 00 11 11 0 30 8 CL [...] TA LL BL C ET AC 00 06 09 1 15 5 [...] 50 MG TA B DI 00 06 09 2 90 30 [...] 20 20 2 57 10 10 PH RAHDA 0 AR HN MG MA G CY [...] ider Refu lity Give sed n IIV4 10- 158 BRAC No BRAC 8-20 LISSY LISSY VACC 16 CO CO HEAL HEAL SPLI TH TH T DEPA DEPA VIRU RTME RTME S NT NT 0.5 ML DOS FOR IM USE IIV4 09- 158 BRAC No BRAC 4-20 LISSY LISSY VACC 15 CO CO HEAL HEAL SPLI TH TH T DEPA DEPA VIRU RTME RTME S NT NT 0.5 ML DOS FOR IM USE Procedures Procedure DOS Code Location Performer Comment ECG 91038 [facility] ROUTINE 7 PHYSICIAN ECG S GROUP W/LEAST 12 LDS I&R ONLY ECG 98190 NICHOLAS PETERSON ROUTINE 7 [facility] ECG INC INC W/LEAST 12 LDS TRCG ONLY W/O I&R ECHO 55288 NICHOLAS PETERSON TTHRC R-T 7 [facility] 2D INC INC W/WOM-MOD E COMPL SPEC&COLR D RADIOLOGI 58362 [place] MAYORGA ALL C 6 MEDICAL EXAMINATI IMAGING ON KNEE 3 ASS VIEWS IIV4 VACC 67084 RYANEN BRACKEN SPLIT 6 CO HEALTH CO HEALTH VIRUS 0.5 ML DOS DEPARTMEN DEPARTMEN FOR IM T T USE ECG 77759 NICHOLAS MENDOZA JR ROUTINE [address] [facility] W/LEAST P 12 LDS I&R ONLY ANES IPER 71030 [facility] LWR ABD 5 ANESTH AMANDA W/LAPS OF THE TUBAL BLUE LIGATION/ TRANSECT INJECTION J2710 NICHOLAS PETERSON 5 [facility] NEOSTIGMI INC INC NE METHYLSUL FATE UP TO 0.5 MG LAPAROSCO 54146 NICHOLAS PETERSON PY W/PLMT 5 [facility] INC INC OCCLUSION DEVICE OVIDUCTS GONADOTRO 26785 NICHOLAS PETERSON PIN 5 [facility] CHORIONIC INC INC QUALITATI VE BLOOD 26349 NICHOLAS PETERSON COUNT 5 [facility] COMPLETE INC INC AUTO&AUTO DIFRNTL WBC COLLECTIO 66567 NICHOLAS NICHOLAS N VENOUS 5 [facility] BLOOD INC INC VENIPUNCT URE COMPREHEN 92904 NICHOLAS PETERSON SIVE 5 [facility] METABOLIC INC INC PANEL CYANOCOBA 77301 NICHOLAS NICHOLAS JULISSA 5 [facility] VITAMIN INC INC B-12 CYTP C/V 67975 LABORATOR LABORATOR AUTO THIN 5 Y JOE OF Y JOE OF LYR VANI VANI PREPJ SCR H H MNL RESCR PHYS IADNA 24941 LABORATOR LABORATOR HUMAN 5 Y JOE OF Y JOE OF PAPILLOMA VANI VANI VIRUS H H HIGH-RISK TYPES OPHTH 40335 [facility] 5 XM&EVAL COMPRHNSV ESTAB PT 1/> IIV4 VACC 13510 MENDY DAVIS SPLIT 5 CO HEALTH CO HEALTH VIRUS 0.5 ML DOS DEPARTMEN DEPARTMEN FOR IM T T USE SMR PRIM 53022 [facility] SAUD SRC WET 5 PHYSICIAN DORIAN [facility] S GROUP NFCT AGT IADNA 44228 NICHOLAS PETERSON CHLAMYDIA 5 [facility] INC INC TRACHOMAT IS AMPLIFIED PROBE TQ IADNA 31355 NICHOLAS PETERSON NEISSERIA 5 [facility] INC INC GONORRHOE AE AMPLIFIED PROBE TQ SMR PRIM 34603 KELLY MONTES DE OCA SRC WET 5 [facility] NFCT AGT CENTER EXTERNAL 89839 NICHOLAS PETERSON ECG 5 [facility] SCANNING INC INC ANALYSIS REPORT XTRNL ECG 19737 NICHOLAS PETERSON & 48 HR 5 [facility] RECORDING INC INC 25 52581 COMBINED COMBINED HYDROXY 5 PHYSICIAN PHYSICIAN INCLUDES S LA S LA FRACTIONS IF PERFORMED CYANOCOBA 31760 COMBINED COMBINED JULISSA 5 PHYSICIAN PHYSICIAN VITAMIN S LA S LA B-12 COMPREHEN 83069 COMBINED COMBINED SIVE 5 PHYSICIAN PHYSICIAN METABOLIC S LA S LA PANEL XTRNL ECG 88599 NICHOLAS MENDOZA JR 5 [facility] S RHYTHM P W/I&R UP TO 48 HRS ANTIBODY 80130 LAB OJE LAB JOE ANA-B 4 VANI VANI ARR EB HOLDINGS HOLDINGS VIRUS EARLY ANTIGEN EA ANTIBODY 10-25-201 79733 LAB JOE LAB JOE ANA-B 4 VANI VANI ARR EB HOLDINGS HOLDINGS VIRUS NUCLEAR AG EBNA ANTIBODY 42146 LAB JOE LAB JOE ANA-B 4 VANI VANI ARR EB HOLDINGS HOLDINGS VIRUS VIRAL CAPSID VCA ANTISTREP 57652 LAB JOE LAB JOE TOLYSIN O 4 VANI VANI TITER HOLDINGS HOLDINGS IAADIADOO 63766 FAMILY MULBERRY 4 CARE EDEN STREPTOCO ASSOCIATE CCUS S GROUP A BLOOD 18981 FAMILY MULBERRY COUNT 4 CARE EDEN COMPLETE ASSOCIATE AUTO&AUTO S DIFRNTL WBC DUP-SCAN 83851 [place] IRIS XTR VEINS 4 [facility] [place] [address] SAUD VILLAVICENCIO TRANSVAGI 4 DORIAN DORIAN NAL OPHTH 11863 [facility] 4 XM&EVAL COMPRE NEW PT 1/> VST URNLS DIP 40418 SAUD VILLAVICENCIO 4 DORIAN DORIAN STICK/TAB LET RGNT NON-AUTO W/O MICRSCP URINE 02164 SAUD VILLAVICENCIO 4 DORIAN DORIAN TEST VISUAL COLOR CMPRSN METHS BLOOD 49456 NICHOLAS NICHOLAS COUNT 4 [facility] COMPLETE INC INC AUTO&AUTO DIFRNTL WBC BLOOD 65703 FABIANA FABIANA COUNT 4 R H R H COMPLETE AUTO&AUTO DIFRNTL WBC COLLECTIO 04554 FABIANA FABIANA N 4 R H R H CAPILLARY BLOOD SPECIMEN IAADIADOO 44796 FABIANA FABIANA [place] [address] [place] IRIS ABDOMEN & 1 [facility] PELVIS IMAGING W/O ASS CONTRAST MATERIAL 3D 78958 [place] IRIS RENDERING 1 [facility] W/INTERP& ASS POSTPROC DIFF WORK STATION CUL BACT 72840 COMBINED COMBINED XCPT 1 PHYSICIAN PHYSICIAN URINE S LA S LA BLOOD/STO OL AEROBIC ISOL SUSCEPTIB 44184 COMBINED COMBINED ILITY 1 PHYSICIAN PHYSICIAN STUDY S LA S [place] B[place] [address] NICHOLASSILVIA BECERRAON ACTIVATED 1 [facility] ECG INC INC RECORD MONITOR 30 DAYS CONTRACEP S4993 JASON GOMEZ TIVE 1 [facility] DEPARTME DEPARTME CONTROL URINE 02067 NICHOLAS PETERSON 1 [facility] TEST INC INC VISUAL COLOR CMPRSN METHS ECHO 74113 NICHOLAS PETERSON TRANSESOP 1 [facility] HAG R-T INC INC 2D W/PRB IMG ACQUISJ I&R DOP 21784 [facility] FALLU ECHOCARD 1 PHYSICIAN HERNI [place]OR [place] [address] NICHOLAS PETERSON INFUSION 1 [facility] THERAPY INC INC PROPHYLAX IS/DX EA HOUR DOPPLER 45896 [facility] PATRICIAUPORTIA ECHOCARD 1 PHYSICIAN HENRI PULSE S GROUP WAVE W/SPECTRA L DISPLAY ECHO 40133 NICHOLAS PETERSON TTHRC R-T 1 [facility] 2D INC INC W/WOM-MOD E COMPL SPEC&COLR D LAPAROSCO 53699 WOMEN'S VILLAVICENCIO PY 0 HEALTH DORIAN W/[place] [address] NICHOLAS PETERSON INFUSION 0 [facility] THERAPY INC [place] [address] PATHOLOGY PATHOLOGY SURG 0 & & PATHOLOGY CYTOLOGY CYTOLOGY LAB LAB GROSS&BERNARDO ROSCOPIC EXAM ANESTHESI 85296 ON LICENSE OF [facility] A 0 ANESTH INTRAPERI OF THE TONEAL BLUE LOWER ABD W/LAPS NOS HYSTEROSC 6812 NICHOLAS PETERSON OPY 0 [facility] INC INC OTHER 9089 NICHOLAS PETERSON DILATION 0 [facility] AND INC INC CURETTAGE OF UTERUS APPLICATI 9977 NICHOLAS PETERSON ON/ADMIN 0 [facility] ADHESION INC INC BARRIER SUBSTANCE S LAPAROSCP 2889 NICHOLAS PETERSON IC LYSIS 0 [facility] ADHESIONS INC INC OVARY&FAL LOPIAN TUBE BASIC 94190 NICHOLAS PETERSON METABOLIC 0 [facility] PANEL INC INC CALCIUM TOTAL GONADOTRO 41875 NICHOLAS PETERSON PIN 0 [facility] CHORIONIC INC INC QUALITATI VE BLOOD 11182 NICHOLAS PETERSON COUNT 0 [facility] COMPLETE INC INC AUTO&AUTO DIFRNTL WBC CULTURE 36116 LABORATOR LABORATOR BACTERIAL 0 Y & Y & BIODIAGNO BIODIAGNO QUANTTATI [place] [address] [facility] HATTIE TRANSVAGI 0 PRIMARY DON [facility] URNLS DIP 90312 LABORATOR LABORATOR 0 Y & Y & STICK/TAB BIODIAGNO BIODIAGNO LET RGNT STICS STICS AUTO W/O MICROSCOP Y CYTP 07458 [facility] CERV/VAG 0 CYTOLOGY CYTOLOGY [employer] [facility]. LAYER PREP MNL SCREEN CONTRACEP S4993 JASON GOMEZ TIVE 0 CO [facility] CONTROL CONTRACEP S4993 JASON GOMEZ TIVE 0 CO CO [facility] CONTROL OPHTH 39102 JANINA SANDOVAL [facility] 0 VISION XM&EVAL COMPRE NEW PT 1/> VST CONTRACEP S4993 JASON GOMEZ TIVE 0 CO [facility] CONTROL T T SHAVING 23863 Nyasia CAVAZOS SKIN 0 CARE G LESION 1 ASSOCIATE TRUNK/ARM S /LEG DIAM 0.5CM/< EXC B9 86629 Nyasia PENNINGTON LESION 0 CARE G MRGN XCP ASSOCIATE SK TG S T/A/L 0.5 CM/< ECHO 11607 [facility] FALLUPORTIA, TTHRC R-T 0 PHYSICIAN ANTHONY Rodrigues S GROUP W/WOM-MOD E COMPL SPEC&COLR D RADIOLOGI 88498 Chelsie PENA 0 MEDICAL OMAR Mike EXAMINATI IMAGING ON CHEST ASSOCIATE SINGLE S VIEW FRONTAL BLOOD 02079 Nyasia CAVAZOS COUNT 0 CARE G COMPLETE ASSOCIATE AUTO&AUTO S DIFRNTL WBC BLOOD 16911 Nyasia PENNINGTON COUNT 0 CARE G COMPLETE ASSOCIATE AUTO&AUTO S DIFRNTL WBC Encounters Encounter Start End Date Code Location Performer Type Date OFFICE 05167 [facility] OUTPATIEN 7 7 PHYSICIAN T NEW 45 S GROUP MINUTES [facility] 7 7 [facility]PATIEN [facility] T [facility] - 6 6 [facility] OUTPATIEN INC T OFFICE 76207 FAMILY GORGE OUTPATIEN 6 6 CARE TORI T VISIT ASSOCIATE 15 S MINUTES [facility] 5 [facility]PATI[facility] INC [facility] 5 5 [facility] OUTPATIEN INC T OFFICE 82061 [facility] VILLAVICENCIO OUTPATIEN 5 5 PHYSICIAN DORIAN T VISIT S GROUP 15 MINUTES [facility] 88741 KELLY FERGUSON FALGUNI PREVENTIV 5 5 PRIMARY E MED EST CARE PATIENT CENTER 18-[address] [facility] VILLAVICENCIO OUTPATIEN 5 5 PHYSICIAN DORIAN T VISIT S GROUP 25 MINUTES [facility] - 5 5 [facility] OUTPATIEN INC T OFFICE 86534 [facility] MONTES [facility] OUTPATIEN 5 5 PRIMARY T VISIT CARE 15 CENTER MINUTES OFFICE 13749 BRACKEN BRACKEN OUTPATIEN 5 5 CO HEALTH CO HEALTH T VISIT 10 DEPARTMEN DEPARTMEN MINUTES T T OFFICE 13509 FAMILY GORGE OUTPATIEN 5 5 CARE TORI T VISIT ASSOCIATE 15 S MINUTES OFFICE 80827 [facility]ACK[facility] BRACKEN OUTPATIEN 5 5 CO [facility]ALTH CO HEALTH T VISIT 10 DEPARTMEN DEPARTMEN MINUTES T T [facility] - 5 5 [facility] OUTPATIEN INC T OFFICE 39581 [facility]ACK[facility] BRACKEN OUTPATIEN 5 5 CO [facility] CO HEALTH T VISIT 10 DEPARTMEN DEPARTMEN MINUTES T T OFFICE 55714 [facility]ACK[facility] BRACKEN OUTPATIEN 4 4 [email or web address] T VISIT 10 [facility] MINUTES T T OFFICE 95988 FAMILY MULBERRY OUTPATIEN 4 4 CARE EDEN T VISIT ASSOCIATE 15 S MINUTES PERIODIC 92850 BRACKEN BRACKEN PREVENTIV 4 4 [email or web address] E MED EST PATIENT [facility] 18-39 YRS T T OFFICE 51101 BRACKEN BRACKEN OUTPATIEN 4 4 [facility] [email or web address] T VISIT 10 [facility] MINUTES T T HOSPITAL [facility] - 4 4 [facility] OUTPATIEN INC T OFFICE 75390 MULBERRY MULBERRY OUTPATIEN 4 4 EDEN EDEN T VISIT 15 MINUTES OFFICE 09538 BRACKEN BRACKEN OUTPATIEN 4 4 [facility] T VISIT 10 [facility] MINUTES T T OFFICE 40995 SAUD VILLAVICENCIO OUTPATIEN 4 4 DORIAN DORIAN T [facility] 45 MINUTES [facility] - 4 4 [facility] OUTPATIEN INC T OFFICE 11002 FABIANARoyer CHOUDHURYT OUTPATIEN 4 4 R H R H T VISIT 15 MINUTES [facility] - 1 1 [facility]PATIEN INC T OFFICE 56132 [facility] FALLUJI OUTPATIEN 1 1 PHYSICIAN HENRI T VISIT S GROUP [address] [facility] FALLUJI OUTPATIEN 1 1 PHYSICIAN HENRI T VISIT S GROUP 25 MINUTES [facility] - 1 1 [facility] OUTPATIEN INC T OFFICE 00104 JASON GOMEZ OUTPATIEN 1 1 [facility] T VISIT HEALTH HEALTH 10 [facility] - 1 1 [facility] OUTPATIEN INC [facility] - 1 1 [facility] OUTPATIEN INC OFFICE 09870 [facility] OUTPATIEN 0 0 HEALTH DORIAN T VISIT CLINIC OF 15 [place] MINUTES [facility] - 0 0 [facility]PAT[facility] INC [facility]PATIEN REPLACED BY [facility] OFFICE 33768 [facility] VILLAVICENCIO OUTPATIEN 0 0 HEALTH DORIAN T VISIT CLINIC OF 15 [place] MINUTES OFFICE 68581 [facility] VILLAV[facility] CONSULTAT 0 0 HEALTH DORIAN ION CLINIC OF NEW/ESTAB [place] PATIENT 60 MIN OFFICE 63299 FAMILY GORGE Murrell OUTPATIEN 0 0 CARE T VISIT ASSOCIATE 25 S MINUTES OFFICE 81094 [facility] HATTIE OUTPATIEN 0 0 PRIMARY DON T VISIT CARE 15 CENTER MINUTES PERIODIC 78539 JASON GOMEZ PREVENTIV 0 0 CO CO E MED EST HEALTH HEALTH PATIENT [facility] 18-39 YRS OFFICE [id number] JASON GOMEZ OUTPATIEN 0 0 CO CO T VISIT HEALTH HEALTH [address] [facility] MINUTES OFFICE [id number] JASON GOMEZ OUTPATIEN 0 0 CO CO T VISIT HEALTH HEALTH 10 [facility] T T OFFICE [id number] Nyasia CAVAZOS OUTPATIEN 0 0 CARE G T VISIT ASSOCIATE 15 S MINUTES OFFICE [id number] Nyasia CAVAZOS OUTPATIEN 0 0 CARE G T VISIT ASSOCIATE 15 S MINUTES
--- OUTSIDE RECORDS SUMMARY | 2016-08-15 12:48 | External Medical Summary Rpt ---
Author Author , RAY Organization RAY Address Unknown Phone [email or web address] Providers Care Grab Jack Worker Name Role Phone MAYORGA ALL, MAYORGA ALL Unavailable Unavailable twtrland [facility] Unavailable Unavailable DEPARTMENT, [facility] Unavailable Unavailable DEPARTMENT, [facility] HE[facility] DEPARTMENT VILLAVICENCIO DORIAN, VILLAVICENCIO Unavailable [...] CARE Unavailable Unavailable ASSOCIATES, [facility] Unavailable Unavailable INC, [facility] Unavailable Unavailable HOSPITAL P, [facility] P SANDOVAL JESSICA, SANDOVAL JESSICA Unavailable Unavailable SANDOVAL JESSICA, SANDOVAL JESSICA Unavailable Unavailable [facility], Unavailable Unavailable [facility] Unavailable Unavailable IMAGING ASS, [facility] JOE VANI Unavailable [...] Unavailable Unavailable LAB, PATHOLOGY & CYTOLOGY LAB [facility] Unavailable Unavailable DEPARTCT, [facility] Unavailable Unavailable [facility] DE[facility] Unavailable Unavailable DEPARTMENT, [facility] DEPARTMENT MARTHA THOMAS Unavailable Unavailable ELÍAS PATEL, ELÍAS Unavailable Unavailable AMANDA [facility] Unavailable Unavailable LLC., [facility] Unavailable Unavailable LLC., 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 R002 PALPITATION 07-14-2016 [facility] S PHYSICIANS GROUP S71100 PAIN IN 12-18-2015 [place] LEFT KNEE MEDICAL IMAGING ASS V3955LI UNS INJURY 12-18-2015 [place] LT LOWER MEDICAL LEG INITIAL IMAGING ASS ENCOUNTER Z23 ENCOUNTER 11-26-2015 MENDY LUQUE FOR HEALTH IMMUNIZATIO DEPARTMENT N Z302 ENCOUNTER 12-10-2014 [facility] FOR PHYSICIANS STERILIZATI GROUP ON S85333 ENCOUNTER 12-07-2014 NICHOLSA FOR [facility] PREPROCEDUR INC AL LABORATORY EXAM Z309 ENCOUNTER 12-07-2014 [facility]AS FOR [facility] CONTRACEPTI INC VE MANAGEMENT UNS Z3009 ENCOUNTER 11-27-2014 [facility] OTH GENERAL PHYSICIANS GROUP TECHNOLOGY INTERN&ADV ICE CONTRACEPT Z9851 TUBAL 11-27-2014 [facility] LIGATION PHYSICIANS STATUS GROUP 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 Z1151 ENCOUNTER 11-14-2014 LABORATORY FOR JOE OF SCREENING VANI H FOR HUMAN PAPILLOMAVI MILO Z124 ENCOUNTER 11-14-2014 LABORATORY OTHER JOE OF SCREENING VANI H MALIG NEOPLASM CERVIX F58493 ENCOUNTER 11-13-2014 KELLY LUQUE TWX OPERATOR EXAM PRIMARY GENERAL RTN CARE CENTER W/O ABNORMAL FIND Z713 DIETARY 11-13-2014 KELLY LUQUE COUNSELING PRIMARY AND CARE CENTER SURVEILLANC E Z719 COUNSELING 11-13-2014 KELLY LUQUE UNSPECIFIED PRIMARY CARE CENTER V0481 NEED 11-01-2014 MENDY CO PROPHYLACTI HEALTH C DEPARTMENT VACCINATION &INOCULATIO N FLU 1319 UNSPECIFIED 10-25-2014 [facility] PHYSICIANS TRICHOMONIA GROUP SIS 78633 UNSPECIFIED 10-25-2014 [facility] VAGINITIS PHYSICIANS AND GROUP VULVOVAGINI TIS V2509 OTH GENERAL 10-25-2014 [facility] PHYSIC[facility]ANS CNSL&ADVICE GROUP CONTRACEPT MANAGEMENT V692 PROBLEMS 10-25-2014 NICHOLAS RELATED TO [facility] HIGH-RISK INC SEXUAL BEHAVIOR 6235 LEUKORRHEA 09-19-2014 KELLY CO NOT PRIMARY SPECIFIED CARE CENTER INFECTIVE V2549 SURVEILLANC 08-20-2014 MENDY CO E OTH PREV HEALTH PRSC DEPARTMENT CONTRACEPT METHOD 0542 HERPETIC 07-05-2014 [facility] GINGIVOSTOM ASSOCIATES ATITIS 7464 CONGENITAL 07-05-2014 [facility] INSUFFICIEN ASSOCIATES CY OF AORTIC VALVE [...] VILLAVICENCIO DORIAN SYMPTOM ASSOC W/FEMALE GENITAL ORGANS 32024 ABDOMINAL 03-23-2013 VILLAVICENCIO DORIAN PAIN, LEFT LOWER QUADRANT 23808 REGULAR 03-22-2013 SANDOVAL JESSICA ASTIGMATISM 6250 DYSPAREUNIA 03-16-2013 VILLAVICENCIO DORIAN 36589 ABDOMINAL 03-16-2013 VILLAVICENCIO DORIAN PAIN, UNSPECIFIED SITE 4871 INFLUENZA 02-20-2013 FABIANA R WITH OTHER H RESPIRATORY MANIFESTATI ONS 73291 HEMATURIA 06-25-2010 [facility] UNSPECIFIED MEDICAL IMAGING ASS 98287 ABDOMINAL 06-25-2010 NICHOLAS PAIN OTHER MEM HOS[facility] SPECIFIED INC SITE 4240 MITRAL 05-20-2010 [facility] VALVE PHYSICIANS DISORDERS GROUP 15863 SUPRAVENTRI 05-20-2010 [facility] CULAR PHYSICIANS PREMATURE GROUP BEATS 8798 OPEN WOUND 05-10-2010 COMBINED UNSPEC SITE PHYSICIANS WITHOUT LA MENTION COMP 2662 OTHER 03-10-2010 JASON Cano-COMPLEX CO HEALTH DEFICIENCIE DEPARTME S V2541 SURVEILLANC 03-10-2010 JASON LR CO HEALTH PRESCRIBED DEPARTME CONTRACEPT PILL 7466 CONGENITAL 03-03-2010 [facility]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 DISEASE 7804 DIZZINESS 04-24-2009 [facility] GIDDINESS GROUP 26893 CHEST PAIN 04-24-2009 [place] UNSPECIFIED MEDICAL IMAGING ASSOCIATES 86563 UNSPECIFIED 04-17-2009 [facility] VIRAL [facility] INFECTION [...] 00 6- 0- 00 00 IC ve DE 98 20 20 43 IL 00 17 17 31 PH 3 88 AR 10 MA CY MG TA BL ET ME 57 05 06 60 30 00 CL Ac TO 23 -2 -2 .0 00 IN ti DE 70 7- 3- 00 00 IC ve [...] PH CE 5 81 AR TA MA TN CY NO PH N 37 .5 -3 [...] 23 -2 -2 .0 00 IN ti DE 70 8- 6- 00 00 IC ve [...] PH CE 5 50 AR TA MA TN CY NO PH N 37 .5 -3 25 ME 00 03 04 60 30 00 CL Ac TO 59 -3 -2 .0 00 IN ti DE 10 1- 8- 00 00 IC ve OL 46 20 20 42 OL 21 17 17 40 PH 0 92 AR TA MA RT CY RA TE 50 MG TA B ME 00 03 03 60 30 00 CL Ac TO 59 -0 -3 .0 00 IN ti DE 10 3- 1- 00 00 IC ve [...] PH CE 5 77 AR TA MA TN CY NO PH N 37 .5 -3 25 ME 00 02 03 60 30 00 CL Ac TO 59 -0 -0 .0 00 IN ti DE 10 3- 3- 00 00 IC ve [...] PH CE 5 55 AR TA MA TN CY NO PH N 37 .5 -3 25 ME 00 01 02 60 30 00 CL Ac TO 59 -0 -0 .0 00 IN ti DE 10 2- 3- 00 00 IC ve [...] PH CE 5 55 AR TA MA TN CY NO PH N 37 .5 -3 [...] 59 -0 -0 .0 00 IN ti DE 10 5- 9- 00 00 IC ve [...] -0 -1 .0 IN 38 OP ti DE 40 2- 4- 00 IC 21 ER ve OL 40 20 20 OL 50 11 11 PH RADHA 1 AR HN VERDIN MA G CC CY ER LL C 50 MG TA B CI 00 03 04 2 15 30 CL 23 CO Ac TA 37 -1 -1 .0 IN 48 OP ti LO 86 7- 4- 00 IC 67 ER ve DE 23 20 20 AM 30 11 11 [...] 7- 7- 00 IC 67 ER ve DE 23 20 20 AM 30 11 11 PH RADHA 1 AR HN HB MA G R CY 40 LL MG C TA BL ET ME 49 03 03 4 60 30 CL 23 CO Ac TO 88 -0 -1 .0 IN 38 OP ti DE 40 2- 4- 00 IC 21 ER [...] -1 -1 .0 IN 31 OP ti DE 40 4- 4- 00 IC 78 ER [...] -1 -1 .0 IN 31 OP ti DE 40 4- 3- 00 IC 78 ER [...] -1 -1 .0 IN 31 OP ti DE 40 4- 4- 00 IC 78 ER [...] -1 -1 .0 IN 31 OP ti DE 40 4- 0- 00 IC 78 ER [...] -1 -1 .0 IN 31 OP ti DE 40 4- 1- 00 IC 78 ER [...] -1 -1 .0 IN 31 OP ti DE 40 4- 4- 00 IC 78 ER [...] -1 -1 .0 IN 23 OP ti DE 40 0- 2- 00 IC 11 ER ve OL 40 20 20 OL 50 10 10 PH RAHDA 1 AR HN VERDIN MA G CC [...] -1 -1 .0 IN 23 OP ti DE 40 0- 3- 00 IC 11 ER [...] -1 -0 .0 IN 23 OP ti DE 40 0- 9- 00 IC 11 ER [...] -1 -1 .0 IN 23 OP ti DE 40 0- 1- 00 IC 11 ER [...] -1 -1 .0 IN 23 OP ti DE 40 0- 2- 00 IC 11 ER [...] -1 -1 .0 IN 23 OP ti DE 40 0- 0- 00 IC 11 ER [...] Procedure DOS Code Location Performer Comment ECG 10912 [facility] MARTHA ROUTINE 7 PHYSICIAN ECG S GROUP W/LEAST 12 LDS I&R ONLY ECG 88668 NICHOLAS PETERSON ROUTINE 7 [facility] ECG INC INC W/LEAST 12 LDS TRCG ONLY W/O I&R ECHO 10622 NICHOLAS PETERSON TTHRC R-T 7 [facility] 2D INC INC W/WOM-MOD E COMPL SPEC&COLR D RADIOLOGI 22668 [place] MAYORGA ALL C 6 MEDICAL EXAMINATI IMAGING ON KNEE 3 ASS VIEWS IIV4 VACC 26185 RYANEN BRACKEN SPLIT 6 CO HEALTH CO HEALTH VIRUS 0.5 ML DOS DEPARTMEN DEPARTMEN FOR IM T T USE ECG 50384 NICHOLAS MENDOZA JR ROUTINE 5 [facility] W/LEAST P 12 LDS I&R ONLY ANES IPER 75203 [facility] LWR ABD 5 ANESTH AMANDA W/LAPS OF THE TUBAL BLUE LIGATION/ TRANSECT INJECTION J2710 N[facility]OLAS PETERSON 5 [facility] NEOSTIGMI INC INC NE METHYLSUL FATE UP TO 0.5 MG LAPAROSCO 10673 NICHOLAS PETERSON PY W/PLMT 5 [facility] INC INC OCCLUSION DEVICE OVIDUCTS GONADOTRO 81543 NICHOLAS PETERSON PIN 5 [facility] CHORIONIC INC INC QUALITATI VE BLOOD 99850 NICHOLAS PETERSON COUNT 5 [facility] COMPLETE INC INC AUTO&AUTO DIFRNTL WBC COLLECTIO 41686 NICHOLAS NICHOLAS N VENOUS 5 [facility] BLOOD INC INC VENIPUNCT URE COMPREHEN 36367 NICHOLAS PETERSON SIVE 5 [facility] METABOLIC INC INC PANEL CYANOCOBA 71400 NICHOLAS NICHOLAS JULISSA 5 [facility] VITAMIN INC INC B-12 CYTP C/V 18957 LABORATOR LABORATOR AUTO THIN 5 Y JOE OF Y JOE OF LYR VANI VANI PREPJ SCR H H MNL RESCR PHYS IADNA 72171 LABORATOR LABORATOR HUMAN 5 Y JOE OF Y JOE OF PAPILLOMA VANI VANI VIRUS H H HIGH-RISK TYPES OPHTH 43978 [facility] MEDICAL 5 XM&EVAL COMPRHNSV ESTAB PT 1/> IIV4 VACC 38010 MENDY DAVIS SPLIT 5 CO HEALTH CO HEALTH VIRUS 0.5 ML DOS DEPARTMEN DEPARTMEN FOR IM T T USE SMR PRIM 12340 [facility] SAUD SRC WET 5 PHYSICIAN DORIAN [facility] S GROUP NFCT AGT IADNA 53827 NICHOLAS PETERSON CHLAMYDIA 5 [facility] INC INC TRACHOMAT IS AMPLIFIED PROBE TQ IADNA 14416 NICHOLAS PETERSON NEISSERIA 5 [facility] INC INC GONORRHOE AE AMPLIFIED PROBE TQ SMR PRIM 83120 [facility]LLY MONT[facility] SRC WET 5 [facility] NFCT AGT CENTER EXTERNAL 62623 NICHOLAS PETERSON ECG 5 [facility] SCANNING INC INC ANALYSIS REPORT XTRNL ECG 48304 NICHOLAS PETERSON & 48 HR 5 [facility] RECORDING INC INC 25 63933 COMBINED COMBINED HYDROXY 5 PHYSICIAN PHYSICIAN INCLUDES S LA S LA FRACTIONS IF PERFORMED CYANOCOBA 22520 COMBINED COMBINED JULISSA 5 PHYSICIAN PHYSICIAN VITAMIN S LA S LA B-12 COMPREHEN 77262 COMBINED COMBINED SIVE 5 PHYSICIAN PHYSICIAN METABOLIC S LA S LA PANEL XTRNL ECG 89852 NICHOLAS MENDOZA JR [facility] S RHYTHM P W/I&R UP TO 48 HRS ANTIBODY 54108 LAB JOE LAB JOE ANA-B 4 VANI VANI ARR EB HOLDINGS HOLDINGS VIRUS EARLY ANTIGEN EA ANTIBODY 10-25-201 90530 LAB JOE LAB JOE ANA-B 4 VANI VANI ARR EB [employer] HOLDINGS VIRUS NUCLEAR AG EBNA ANTIBODY 45191 LAB JOE LAB JOE ANA-B 4 VANI VANI ARR EB HOLDINGS HOLDINGS VIRUS VIRAL CAPSID VCA ANTISTREP 19623 LAB JOE LAB JOE TOLYSIN O 4 VANI VANI TITER HOLDINGS HOLDINGS IAADIADOO 06346 FAMILY MULBERRY 4 CARE EDEN STREPTOCO ASSOCIATE CCUS S GROUP A BLOOD 90452 FAMILY MULBERRY COUNT 4 CARE EDEN COMPLETE ASSOCIATE AUTO&AUTO S DIFRNTL WBC DUP-SCAN 08273 [place] IRIS XTR VEINS 4 [facility] [place] [address] SAUD VILLAVICENCIO TRANSVAGI 4 DORIAN DORIAN NAL OPHTH 47879 [facility] MEDICAL 4 XM&EVAL COMPRE NEW PT 1/> VST URNLS DIP 98415 SAUD VILLAVICENCIO 4 DORIAN DORIAN STICK/TAB LET RGNT NON-AUTO W/O MICRSCP URINE 91590 SAUD VILLAVICENCIO 4 DORIAN DORIAN TEST VISUAL COLOR CMPRSN METHS BLOOD 81817 NICHOLAS NICHOLAS COUNT 4 [facility] COMPLETE INC INC AUTO&AUTO DIFRNTL WBC BLOOD 48873 FABIANA FABIANA COUNT 4 R H R H COMPLETE AUTO&AUTO DIFRNTL WBC COLLECTIO 08844 FABIANA FABIANA N 4 R H R H CAPILLARY BLOOD SPECIMEN IAADIADOO 19662 FABIANA FABIANA [place] [address] [place] IRIS ABDOMEN & 1 [facility] PELVIS IMAGING W/O ASS CONTRAST MATERIAL 3D 25965 [place] IRIS RENDERING 1 [facility] W/INTERP& ASS POSTPROC DIFF WORK STATION CUL BACT 08014 COMBINED COMBINED XCPT 1 PHYSICIAN PHYSICIAN URINE S LA S LA BLOOD/STO OL AEROBIC ISOL SUSCEPTIB 31767 COMBINED COMBINED ILITY 1 PHYSICIAN PHYSICIAN STUDY S LA S [place] B[place] [address] NICHOLASSILVIA BECERRAON ACTIVATED 1 [facility] ECG INC INC RECORD MONITOR 30 DAYS CONTRACEP S4993 JASON GOMEZ TIVE 1 [facility] DEPARTME DEPARTME CONTROL URINE 29994 NICHOLAS PETERSON 1 [facility] TEST INC INC VISUAL COLOR CMPRSN METHS ECHO 14028 NICHOLAS PETERSON TRANSESOP 1 [facility] HAG R-T INC INC 2D W/PRB IMG ACQUISJ I&R DOP 91505 [facility] FALLU ECHOCARD 1 PHYSICIAN HENRI [place] [address] NICHOLAS PETERSON INFUSION 1 [facility]OSP THERAPY INC INC PROPHYLAX IS/DX EA HOUR DOPPLER 94540 [facility] PATRICIAUPORTIA ECHOCARD 1 PHYSICIAN HENRI PULSE S GROUP WAVE W/SPECTRA L DISPLAY ECHO 36767 NICHOLAS PETERSON TTHRC R-T 1 [facility] 2D INC INC W/WOM-MOD E COMPL SPEC&COLR D LAPAROSCO 65983 WOMEN'S VILLAVICENCIO PY 0 HEALTH DORIAN W/[place] [address] NICHOLAS PETERSON INFUSION 0 [facility] THERAPY INC [place] [address] PATHOLOGY PATHOLOGY SURG 0 & & PATHOLOGY CYTOLOGY CYTOLOGY LAB LAB GROSS&BERNARDO ROSCOPIC EXAM ANESTHESI 83392 [facility] A 0 ANESTH INTRAPERI OF THE TONEAL BLUE LOWER ABD W/LAPS NOS HYSTEROSC 6812 NICHOLAS PETERSON OPY 0 [facility] INC INC OTHER 8429 NICHOLAS PETERSON DILATION 0 [facility] AND INC INC CURETTAGE OF UTERUS APPLICATI 9977 NICHOLAS PETERSON ON/ADMIN 0 [facility] ADHESION INC INC BARRIER SUBSTANCE S LAPAROSCP 2501 NICHOLAS PETERSON IC LYSIS 0 [facility] ADHESIONS INC INC OVARY&FAL LOPIAN TUBE BASIC 71483 NICHOLAS PETERSON METABOLIC 0 [facility] PANEL INC INC CALCIUM TOTAL GONADOTRO 65019 NICHOLAS PETERSON PIN 0 [facility] CHORIONIC INC INC QUALITATI VE BLOOD 60740 NICHOLAS PETERSON COUNT 0 [facility] COMPLETE INC INC AUTO&AUTO DIFRNTL WBC CULTURE 29260 LABORATOR LABORATOR BACTERIAL 0 Y & Y & BIODIAGNO BIODIAGNO QUANTTATI [place] [address] [facility] HATTIE TRANSVAGI 0 PRIMARY DON [facility] CENTER URNLS DIP 75111 LABORATOR LABORATOR 0 Y & Y & STICK/TAB BIODIAGNO BIODIAGNO LET RGNT STICS STICS AUTO W/O MICROSCOP Y CYTP 86173 [facility] CERV/VAG 0 CYTOLOGY CYTOLOGY [employer] LAYER PREP MNL SCREEN CONTRACEP S4993 JASON GOMEZ TIVE 0 [facility] CONTROL CONTRACEP S4993 JASON GOMEZ TIVE 0 [facility] CONTROL OPHTH 16741 JANINA SANDOVAL [facility] 0 VISION XM&EVAL COMPRE NEW PT 1/> VST CONTRACEP S4993 JASON GOMEZ TIVE 0 CO [facility] CONTROL T T SHAVING 60337 Nyasia CAVAZOS SKIN 0 CARE G LESION 1 ASSOCIATE TRUNK/ARM S /LEG DIAM 0.5CM/< EXC B9 24520 Nyasia PENNINGTON LESION 0 CARE G MRGN XCP ASSOCIATE SK TG S T/A/L 0.5 CM/< ECHO 84347 [facility] FALLUPORTIA, TTHRC R-T 0 PHYSICIAN ANTHONY Rodrigues S GROUP W/WOM-MOD E COMPL SPEC&COLR D RADIOLOGI 20006 Chelsie PENA 0 MEDICAL OMAR Mike EXAMINATI IMAGING ON CHEST ASSOCIATE SINGLE S VIEW FRONTAL BLOOD 26821 Nyasia CAVAZOS COUNT 0 CARE G COMPLETE ASSOCIATE AUTO&AUTO S DIFRNTL WBC BLOOD 13235 Nyasia PENNINGTON COUNT 0 CARE G COMPLETE ASSOCIATE AUTO&AUTO S DIFRNTL WBC Encounters Encounter Start End Date Code Location Performer Type Date OFFICE 64878 [facility]A OUTPATIEN 7 7 PHYSICIAN T NEW 45 S GROUP MINUTES [facility] T [facility] - 7 7 [facility] OUTPATIEN INC T [facility] - 6 6 [facility] OUTPATIEN INC T OFFICE 78131 FAMILY GORGE OUTPATIEN 6 6 CARE TORI T VISIT ASSOCIATE 15 S MINUTES [facility]OS[facility] - 5 5 [facility] OUTPATIEN INC [facility] - 5 5 [facility] OUTPATIEN INC T OFFICE 07317 [facility] VILLAVICENCIO OUTPATIEN 5 5 PHYSICIAN DORIAN T VISIT S GROUP 15 MINUTES [facility] 34608 KELLY FERGUSON FALGUNI PREVENTIV 5 5 PRIMARY E MED EST CARE PATIENT CENTER 18-39 YRS OFFICE 45676 [facility] VILLAVICENCIO OUTPATIEN 5 5 PHYSICIAN DORIAN T VISIT S GROUP 25 MINUTES [facility]OSPITAL [facility] - 5 5 [facility] OUTPATIEN INC T OFFICE 28562 KELLY MONT[facility] OUTPATIEN 5 5 PRIMARY T VISIT CARE 15 CENTER MINUTES OFFICE 03851 BRACKEN BRACKEN OUTPATIEN 5 5 CO HEALTH CO HEALTH T VISIT 10 DEPARTMEN DEPARTMEN MINUTES T T OFFICE 98495 FAMILY GORGE OUTPATIEN 5 5 CARE TORI T VISIT ASSOCIATE 15 S MINUTES OFFICE 91113 BRACKEN BRACKEN OUTPATIEN 5 5 CO HEALTH CO HEALTH T VISIT 10 DEPARTMEN DEPARTMEN MINUTES T T [facility]OSPITAL [facility] - 5 5 [facility] OUTPATIEN INC T OFFICE 84787 BRACK[facility] BRACKEN OUTPATIEN 5 5 CO [facility] CO HEALTH T VISIT 10 DEPARTMEN DEPARTMEN MINUTES T T OFFICE 52447 BRACK[facility] BRACKEN OUTPATIEN 4 4 [facility]IT 10 [facility] MINUTES T T OFFICE 97702 FAMILY MULBERRY OUTPATIEN 4 4 CARE EDEN T VISIT ASSOCIATE 15 S MINUTES PERIODIC 64167 [facility]ACK[facility] BRACKEN PREVENTIV 4 4 [facility] E MED EST PATIENT [facility] 18-39 YRS T T OFFICE 83131 BRACKEN BRACKEN OUTPATIEN 4 4 [facility] T VISIT 10 [facility] MINUTES T T HOSPITAL [facility] - 4 4 [facility] OUTPATIEN INC T OFFICE 19025 MULBERRY MULBERRY OUTPATIEN 4 4 EDEN EDEN T VISIT 15 MINUTES OFFICE 72939 BRACKEN BRACKEN OUTPATIEN 4 4 [facility] T VISIT 10 [facility] MINUTES T T OFFICE 91311 SAUD VILLAVICENCIO OUTPATIEN 4 4 DORIAN DORIAN T [facility] 45 MINUTES HOSPITAL [facility] - 4 4 [facility] OUTPATIEN INC T OFFICE 76913 FABIANARoyer CHOUDHURYT OUTPATIEN 4 4 R H R H T VISIT 15 MINUTES [facility] - 1 1 [facility] OUTPATIEN INC T OFFICE 02208 [facility] FALLUJI OUTPATIEN 1 1 PHYSICIAN HENRI T VISIT S GROUP 25 MINUTES OFFICE 32430 [facility] FALLUJI OUTPATIEN 1 1 PHYSICIAN HENRI T VISIT S GROUP 25 MINUTES [facility]OS[facility] - 1 1 [facility] OUTPATIEN INC T OFFICE 90071 JASON GOMEZ OUTPATIEN 1 1 [facility] T VISIT HEALTH HEALTH 10 [facility] - 1 1 [facility] OUTPATIEN INC [facility] - 1 1 [facility] OUTPATIEN INC OFFICE 49606 [facility] VILLAVICENCIO OUTPATIEN 0 0 HEALTH DORIAN T VISIT CLINIC OF 15 [place] MINUTES [facility] NICHOLAS - 0 0 [facility] OUTPATIEN INC [facility] NICHOLAS - 0 0 [facility] OUTPATIEN [facility] OFFICE 42093 WOMEN'S VILLAVICENCIO OUTPATIEN 0 0 HEALTH DORIAN T VISIT CLINIC OF 15 [place] MINUTES OFFICE 47580 WOMEN'S VILLAVICENCIO CONSULTAT 0 0 HEALTH DORIAN ION CLINIC OF NEW/ESTAB [place] PATIENT 60 MIN OFFICE 05630 FAMILY GORGE Murrell OUTPATIEN 0 0 CARE T VISIT ASSOCIATE 25 S MINUTES OFFICE 02022 [facility] HATTIE OUTPATIEN 0 0 PRIMARY DON T VISIT CARE 15 CENTER MINUTES PERIODIC 69977 JASON GOMEZ PREVENTIV 0 0 CO CO E MED EST HEALTH HEALTH PATIENT [facility] 18-39 YRS OFFICE 77649 JASON GOMEZ OUTPATIEN 0 0 CO CO T VISIT HEALTH HEALTH 10 [facility] MINUTES OFFICE 43690 JASON GOMEZ OUTPATIEN 0 0 CO CO T VISIT HEALTH HEALTH 10 [facility] T T OFFICE 01476 Nyasia CAVAZOS OUTPATIEN 0 0 CARE G T VISIT ASSOCIATE 15 S MINUTES OFFICE 71263 Nyasia CAVAZOS OUTPATIEN 0 0 CARE G T VISIT ASSOCIATE 15 S MINUTES
--- OUTSIDE RECORDS SUMMARY | 2016-08-15 12:49 | External Medical Summary Rpt ---
Author Author RAY Address Unknown Phone [email or web address] Immunization Name Date Rout CVX Reac Dose Comm Prov Is Faci e tion ent ider Refu lity Give sed n Tdap 09- 115 999 Hist H112 No H112 , 8-20 oric Adso 13 al rbed Info rmat ion - Sour ce Unsp ecif ied
--- OUTSIDE RECORDS SUMMARY | 2016-08-15 12:49 | External Medical Summary Rpt ---
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 in tion in tion in 9:00 AM source source source source data data data data ETHNICI WHITE, No No No No Jan 25 TY NON-HIS informa informa informa informa 2013 PANIC tion in tion in tion in tion in 9:00 AM source source source source data data data data KIT 05/09/19 No No No No Jan 25 EXPIRAT 14 informa informa informa informa 2013 ION tion in tion in tion in tion in 9:00 AM DATE source source source source data data data data SYMPTOM YES No No No No Jan 25 S informa informa informa informa 2013 tion in tion in tion in tion in 9:00 AM source source source source data data data data REASON REVISIT No No No No Jan 25 FOR /ANNUAL informa informa informa informa 2013 REQUEST FAMILY tion in tion in tion in tion in 9:00 AM source source source source PLANNIN data data data data G VISIT SPECIME FEMALE No No No No Jan 25 N ENDOCER informa informa informa informa 2013 SOURCE VICAL tion in tion in tion in tion in 9:00 AM source source source source data data data data PREGNAN NO No No No No Jan 25 T informa informa informa informa 2013 tion in tion in tion in tion in 9:00 AM source source source source data data data data CHART N/A No No No No Jan 25 NUMBER informa informa informa informa 2013 tion in tion in tion in tion in 9:00 AM source source source source data data data data Chlamyd NEGATIV No No No NEGATIV Jan 25 ia E informa informa informa E 2013 trachom tion in tion in tion in RESULT= 9:00 AM atis source source source WITHIN rRNA data data data NORMAL [Presen ce] in LIMITSP Unspeci OSITIVE fied specime RESULT= n by Probe & ABNORMA target LEQUIVO GAYLA amplifi RESULT= cation method INDETER MINATEU NSATISF ACTORY RESULT= INVALID Neisser NEGATIV No No No NEGATIV Jan 25 ia E informa informa informa E 2013 gonorrh tion in tion in tion in RESULT= 9:00 AM oeae source source source WITHIN rRNA data data data NORMAL [Presen ce] in LIMITSP Unspeci OSITIVE fied specime RESULT= n by Probe & ABNORMA target LEQUIVO GAYLA amplifi RESULT= cation method INDETER MINATEU NSATISF ACTORY RESULT= INVALID THE APTIMA COMBO 2 ASSAY IS NOT INTENDE D FOR THE EVALUAT ION OF SUSPECT EDSEXUA L ABUSE OR FOR OTHER MEDICO- LEGAL INDICAT IONS. FOR THOSE PATIENT S FORWHOM A FALSE POSITIV E RESULT MAY HAVE ADVERSE PSYCHO- SOCIAL IMPACT, [facility] MMENDS RETESTI NG.\.br \This report contain s patient informa tion that must be protect ed in accorda nce with the Health Insuran ce Portabi lity and Account ability Act. CHLAMYDIA AND GONORRHEA TESTING Observa Value Referen Units Interpr Notes Date tion ce etation Range COLLECT K. 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 in tion in tion in 9:00 AM source source source source data data data data ETHNICI WHITE, No No No No Jan 25 TY NON-HIS informa informa informa informa 2013 PANIC tion in tion in tion in tion in 9:00 AM source source source source data data data data KIT 05/09/19 No No No No Jan 25 EXPIRAT 14 informa informa informa informa 2013 ION tion in tion in tion in tion in 9:00 AM DATE source source source source data data data data SYMPTOM YES No No No No Jan 25 S informa informa informa informa 2013 tion in tion in tion in tion in 9:00 AM source source source source data data data data REASON REVISIT No No No No Jan 25 FOR /ANNUAL informa informa informa informa 2013 REQUEST FAMILY tion in tion in tion in tion in 9:00 AM source source source source PLANNIN data data data data G VISIT SPECIME FEMALE No No No No Jan 25 N ENDOCER informa informa informa informa 2013 SOURCE VICAL tion in tion in tion in tion in 9:00 AM source source source source data data data data PREGNAN NO No No No No Jan 25 T informa informa informa informa 2013 tion in tion in tion in tion in 9:00 AM source source source source data data data data CHART N/A No No No No Jan 25 NUMBER informa informa informa informa 2013 tion in tion in tion in tion in 9:00 AM source source source source data data data data Chlamyd Pending No No No No Jan 25 ia informa informa informa informa 2013 trachom tion in tion in tion in tion in 9:00 AM atis source source source source rRNA data data data data [Presen ce] in Unspeci fied specime n by Probe & target amplifi cation method Neisser Pending No No No \.br\Jan 25 ia informa informa informa is 2013 gonorrh tion in tion in tion in report 9:00 AM oeae source source source contain rRNA data data data s [Presen patient ce] in Unspeci informa fied tion specime that n by must be Probe & target protect ed in amplifi accorda cation nce method with the Health Insuran ce Portabi lity and Account ability Act. URINE CULTURE Observa Value Referen Units Interpr Notes Date tion ce etation Range URINE COLONY No No No No Aug 01 CULTURE COUNT: informa informa informa informa 2010 5-10K tion in tion in tion in tion in 11:32 cfu/ml source source source source AM Skin data data data data freddie. URINALYSIS Observa Value Referen Units Interpr Notes Date tion ce etation Range UR NEGATIV NEGATIV MG/DL No No Aug 01 GLUCOSE E E informa informa 2011 tion in tion in 11:56 source source AM data data UR NEGATIV NEGATIV MG/DL No No Jul 24 BILIRUB E E informa informa 2010 IN tion in tion in 11:56 source source AM data data UR NEGATIV NEGATIV MG/DL No No Jul 24 KETONE E E informa informa 2010 tion in tion in 11:56 source source AM data data UR SP <1.005 1.005 - No No No Jul 24 GRAVITY 30 informa informa informa 2011 tion in tion in tion in 11:56 source source source AM data data data UR NEGATIV NEGATIV MG/DL No No Jul 24 BLOOD E E informa informa 2010 tion in tion in 11:56 source source AM data data UR PH 7.0 5.0 - No No No Jul 24 9.0 informa informa informa 2011 tion in tion in tion in 11:56 source source source AM data data data UR NEGATIV NEGATIV MG/DL No No Aug 01 PROTEIN E E informa informa 2010 tion in tion in 11:56 source source AM data data UR <2.0 <2.0 MG/DL No No Aug 01 UROBILI informa informa 2010 NOGEN tion in tion in 11:56 source source AM data data UR NEGATIV NEGATIV MG/DL No No Jul 24 NITRITE E E informa informa 2010 tion in tion in 11:56 source source AM data data UR TRACE NEGATIV ISA/UL Abnorma No Aug 01 LEUKOCY E l informa 2010 TE tion in 11:56 source AM data UR YELLOW YELLOW No No No Jul 24 COLOR informa informa informa 2010 tion in tion in tion in 11:56 source source source AM data data data UR CLEAR CLEAR No No No Aug 01 CLARITY informa informa informa 2010 tion in tion in tion in 11:56 source source source AM data data data UR WBC 10-20 1 - 3 /HPF Abnorma No Jul 24 l informa 2011 tion in 11:56 source AM data UR RBC 1-3 1 - 3 /HPF No No Jul 24 informa informa 2011 tion in tion in 11:56 source source AM data data UR 1-3 3 - 5 /HPF No No [place] 24 SQUAMOU informa informa 2011 SE EPI tion in tion in 11:56 source source AM data data UR FEW NONE /HPF Abnorma No [place] 24 BACTERI SEEN l informa 2011 A tion in 11:56 source AM data TOX SCREEN Observa Value Referen Units Interpr Notes Date tion ce etation Range SOURCE URINE No No No No [place] 24 informa informa informa informa 2011 tion in tion in tion in tion in 10:49 source source source source AM data data data data CANNABI POSITIV CUTOFF: NG/ML Abnorma No [place] 24 NOIDS E 50 l informa 2011 tion in 11:52 source AM data PHENCYC NEGATIV CUTOFF: NG/ML No No [place] 24 LIDINE E 25 informa informa 2011 tion in tion in 11:52 source source AM data data COCAINE NEGATIV CUTOFF: NG/ML No No [place] 24 E 150 informa informa 2011 tion in tion in 11:52 source source AM data data METHAMP NEGATIV CUTOFF: NG/ML No No [place] 24 HETAMIN E 500 informa informa 2011 E tion in tion in 11:52 source source AM data data OPIATES NEGATIV CUTOFF: NG/ML No No [place] 24 E 100 informa informa 2011 tion in tion in 11:52 source source AM data data AMPHETA NEGATIV CUTOFF: NG/ML No No [place] 24 MINE E 500 informa informa 2011 tion in tion in 11:52 source source AM data data BENZODI POSITIV CUTOFF: NG/ML Abnorma No [place] 24 AZEPINE E 150 l informa 2011 S tion in 11:52 source AM data TRICYCL NEGATIV CUTOFF: NG/ML No No [place] 24 IC E 300 informa informa 2011 ANTIDEP tion in tion in 11:52 RESSANT source source AM data data METHADO NEGATIV CUTOFF: NG/ML No No [place] 24 NE E 200 informa informa 2011 tion in tion in 11:52 source source AM data data BARBITU NEGATIV CUTOFF: NG/ML No No [place] 24 RATES E 200 informa informa 2011 tion in tion in 11:52 source source AM data data OXYCODO NEGATIV CUTOFF: NG/ML No No [place] 24 [address] E 100 informa informa 2010 tion in tion in 11:52 source source AM data data PROPOXY NEGATIV CUTOFF: NG/ML No IMPOR Aug 01 PHENE E 300 informa TANTT 2010 tion in HIS IS 11:52 source A AM data SCREENI NG METHOD. THE TEST RESULTS ARE TO BE USEDFOR MEDICAL PURPOSE S ONLY. MANY COMMON COMPOUN DS CAN CAUSEFA LSE POSITIV E RESULTS . CONFIRM ATION OF A POSITIV E RESULT ISAVAIL ABLE BY REQUEST .NOTE CUTOF F VALUES CHANGED . EFFECTI VE ER 2008. PREG TEST, UA QUAL Observa Value Referen Units Interpr Notes Date tion ce etation Range Choriog NEGATIV NEGATIV No No No Aug 01 onadotr E E informa informa informa 2010 opin tion in tion in tion in 11:35 (pregna source source source AM ncy data data data test) [Presen ce] in Urine
--- OUTSIDE RECORDS SUMMARY | 2016-08-15 12:49 | External Medical Summary Rpt ---
Author Author RAY Address Unknown Phone [email or web address] Immunization Name Date Rout CVX Reac Dose Comm Prov Is Faci e tion ent ider Refu lity Give sed n Tdap 09- 115 999 Hist H112 No H112 , 8-20 oric Adso 13 al rbed Info rmat ion - Sour ce Unsp ecif ied
--- OUTSIDE RECORDS SUMMARY | 2016-08-15 12:49 | External Medical Summary Rpt ---
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 CHLAMYDIA AND GONORRHEA TESTING Observa Value Referen Units Interpr Notes Date tion ce etation Range COLLECT K. 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
--- NOTE | 2016-08-15 13:13 | Urgent Treatment Center Report ---
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 STATES THUMB POPPED AND NOW SHE HAS PAIN SHOOTING UP HER ARM Location if Accident:Work Onset of symptoms date/time:08/15/1609/24/1014 or onset unknown for: Have you (or family members/close friends) recently traveled outside the [place]? N If Yes, where/when: Have you had exposure to infectious disease within the past month? TB? Other? Specify: Patient state that she was at work when a confused combative resident grabbed her left thumb and twisted it states that she felt a "pop" and went and had the nurse look at it and wrap it for her State that then pain began shooting up her arm from the thumb and they wanted her to come and get checked ALLERGIES Coded Allergies: latex (Intermediate, I-RASH/ITCHING 12/10/14) Uncoded Allergies: BANDAIDS (Intermediate, I-RASH 12/07/14) SILK TAPE (Intermediate, I-RASH 12/07/14) Home Medications Reported Medications Metoprolol Tartrate (Lopressor) 50 MG PO BID VITAMIN B12 (Cyanocobalamin Injection) 1,000 MCG PO DAILY History Medical History General CAD? No Angina: No ID: No Hypertension? Yes Hyperlipidemia? No CHF? No DVT? No PE? No COPD? No Asthma? No Anemia? No GERD? No Gastric ulcers? No GI Bleed? No Hernia? No Thyroid Problems? No Hypothyroidism? No CVA? No Seizures? No Diabetes? No Renal Insuffiency? No UTI? No Stones? No BPH? No GB Disease: No Nephritic Syndrome? No Asplenia? No Hepatitis? No Sickle Cell Disease? No Arthritis? No Migraines? No Cataracts? No Glaucoma? No MRSA? No HIV? No TB? No Anxiety? No Depression? No Cancer? 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 No: respiratory distress. 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 No Results/Orders Orders Procedure Date/time Status UTC STABILIZE JOINT/AREA 08/15 1339 Active HAND-LT-3 VIEWS 08/15 1232 Active XRAY/CT/US XRAY/CT/US XRAY hand XR interpretation by reviewed by me Xray Results no fracture seen Departure Departure Time of Disposition 1336 Disposition DC Home or Self Care(routine) Clinical Impression Primary Impression: Finger sprain Qualifiers: Encounter type: initial encounter Finger: thumb Sprain of finger site: unspecified site Laterality: left Qualified Code: S63.602A - Unspecified sprain of left thumb, initial encounter Condition STABLE Referrals August FUNK,Nyasia Gregory (PCP/Family) Nancy FUNK,Satnam DUNBAR MD, SHIRA DENISE Patient Instructions DI for Finger Sprain, Finger Sprain Additional Instructions *RICE, Rest the extremity, Ice 15-20 minutes 3-4 times daily, Compress- wear the crow wrap as discussed as much as possible to help reduce swelling and pain, Elevate the extremity when at rest *Crow wrap is for support and help control swelling, use it except in the shower. Be sure that is not to tight but not to loose either *Elevate when resting *Ibuprofen 600-800mg every 6-8 hours as needed for pain an inflammation. If need something more can take Tylenol in between doses of Ibuprofen to help Immediately follow up for new or worsening of symptoms, or no noticeable improvement over the next 3-5 days Discharge Counseling Counseled pt/family regarding diagnosis, test results, home care, follow up needs Prescriptions Current Visit Scripts Ibuprofen (MOTRIN 400MG) 400 MG PO Q6HP PRN pain #40 TAB at 1346
[2016-08-15] MEDS ORDERED: MOTRIN 400MG.400 MG PO (13:36)
[2016-08-15 13:52] VITALS: BP 129/86
--- NOTE | 2016-08-15 14:55 | RADIOLOGY REPORT PS360 ---
HAND-LT-3 VIEWS COMPARISON: None HISTORY: Twisting injury to left thumb TECHNIQUE: AP lateral and oblique views FINDINGS: The carpal bones metacarpals and phalanges all appear intact with no evidence of recent or old fracture. The soft tissues are normal. IMPRESSION: Negative left hand
== END 2016-08-15 13:53 | disposition home or self-care (01) ==
LOC: UTC 12:18
DX: S63.602A Unspecified sprain of left thumb, initial encounter (principal); X50.1XXA Overexertion from prolonged static or awkward postures, initial encounter; Y93.F9 Activity, other caregiving; Y92.69 Other specified industrial and construction area as the place of occurrence of the external cause; Y99.0 Civilian activity done for income or pay

== ENCOUNTER 2016-09-09 14:03 | Emergency (ER) | payer MEDICAID ==
[~2016-09-09] VITALS: Ht 154.9 cm; Wt 53.1 kg
[~2016-09-09 14:03] MED LIST changes: +CYANOCOBAL1000 MCG/M PO; +MOTRIN 400MG.400 MG PO
--- NOTE | 2016-09-09 14:25 | Emergency Room Report ---
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 N Clinical Suspician of Infection? N Mental Status: 1 - Regular (Normal Baseline) Sepsis Risk:Low Sepsis Risk Have you (or family members/close friends) recently traveled outside the [place]? N If Yes, where/when: Have you had exposure to infectious disease within the past month? TB? Other? Specify: Patient with acute onset of chest pain at work today, states her hands and feet and mouth are tingling. Reports hx of HTN, hx of AYAD revealing bicuspid aortic valve and mitral regurgitation; she has a nicotine patch; FH significant for son who at six weeks of age from congenital coarctation of the aorta. She denies hyperlipidemia, denies DM. Pain is not positional, is substernal and somewhat positional. No palpitations. No vomiting or diaphoresis. No back or abdominal pain. ALLERGIES Coded Allergies: latex (Intermediate, I-RASH/ITCHING 09/09/16) Uncoded Allergies: BANDAIDS (Intermediate, I-RASH 12/07/14) SILK TAPE (Intermediate, I-RASH 12/07/14) Home Medications Active Scripts Ibuprofen (MOTRIN 400MG) 400 MG PO Q6HP PRN pain #40 TAB Prov: 08/15/16 Reported Medications Metoprolol Tartrate (Lopressor) 50 MG PO BID VITAMIN B12 (Cyanocobalamin Injection) 1,000 MCG PO DAILY History Medical History General CAD? No Angina: No SD: No Hypertension? Yes Hyperlipidemia? No CHF? No DVT? No PE? No COPD? No Asthma? No Anemia? No GERD? No Gastric ulcers? No GI Bleed? No Hernia? No Thyroid Problems? No Hypothyroidism? No CVA? No Seizures? No Diabetes? No Renal Insuffiency? No End Stage Renal Disease? No UTI? No Stones? No BPH? No GB Disease: No Nephritic Syndrome? No Asplenia? No Hepatitis? No Sickle Cell Disease? No Arthritis? No Migraines? No Cataracts? No Glaucoma? No MRSA? No HIV? No TB? No Anxiety? No Depression? No Cancer? 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 N/A Family History Family Hx Diabetes No CAD No Hypertension Yes Hyperlipidemia Yes Cancer Yes TB Yes Social History Smoking Hx Smoker: Former Smoker Tobacco: No Packs/day < 1 Pack Alcohol Alcohol: No Review of Systems All Other Systems Reviewed and Negative Cardiovascular see HPI Musculoskeletal see HPI Physical Exam Vital Signs Vital Signs Date Time Temp Pulse Resp B/P Pulse O2 O2 Flow FiO2 Ox Delivery Rate 09/09 1524 89 16 124/85 100 09/09 1444 99 20 115/82 96 09/09 1404 97.8 103 18 100 General Appearance normal appearance (118/70) Eye Exam - bilateral eye normal exam, bilateral eye PERRL, bilateral eye EOMI Neck normal inspection, non-tender, supple, full range of motion Respiratory Status Yes: trachea midline, chest symmetrical, non tender chest. No: respiratory distress, tender on palpation, use of accessory muscles, pain on inspiration, pain on expiration, productive cough, non productive cough. Lung Sounds bilateral: normal breath sounds, lungs clear. Cardiovascular normal exam, regular rate/rhythm, no peripheral edema, no gallop, no JVD, no murmur, no rub, normal peripheral pulses Gastrointestinal normal bowel sounds, soft, no organomegaly, no guarding, no rebound Extremities normal range of motion, normal inspection, no pedal edema Strength 5 Upper Ext (L), 5 Upper Ext (R), 5 Lower Ext (L), 5 Lower Ext (R) Neurologic alert, normal exam, no motor/sensory deficits, oriented x 3 Glascow Coma Scale Glascow Coma Scale Response Value EYE response: 4 Spontaneously 4 MOTOR response: 6 OBEYS 6 VERBAL response: 5 Oriented & Converses 5 Total 15 Skin intact, normal color, warm/dry Medical Decision Making LABS/Meds/Orders Pt receiving controlled substance in ED? No Results/Orders Laboratory Tests 09/09/16 1620: Urine Color YELLOW, Urine Appearance CLEAR, Urine pH 6.0, Ur Specific [place] 1.010, Urine Protein NEGATIVE, Urine Ketones NEGATIVE, Urine Blood 1+ H, Urine Nitrate NEGATIVE, Urine Bilirubin NEGATIVE, Urine Urobilinogen 0.2, Ur Leukocyte Esterase NEGATIVE, Urine RBC OCC, Urine WBC NONE, Ur Squamous Epith Cells 10-20, Urine Bacteria 3+, Urine Glucose NEGATIVE 09/09/16 1615: Troponin I < 0.02 09/09/16 1420: Sodium 140, Potassium 3.5, Chloride 104, Carbon Dioxide 26, BUN 10, Creatinine 1.1 H, Estimated Creat Clear 59, Estimated GFR (MDRD) 56 L, Glucose 101, Calcium 9.3, Total Bilirubin 0.5, AST 16, ALT 19, Alkaline Phosphatase 58, Creatine Kinase 78, CK-MB (CK-2) Rel Index 0.6, CK and CKMB Interp 0.5, Troponin I < 0.02, Total Protein 8.1, Albumin 4.4, Globulin 3.7 H, Albumin/Globulin Ratio 1.2, D-Dimer < 100, WBC 6.0, RBC 3.83 L, Hgb 12.0 L, Hct 35.7 L, MCV 93.2, RDW 13.7, Plt Count 293, Gran % 56.4, Gran # 3.4, Lymphocytes % 39.3, Monocytes % 4.3, Lymphocytes # 2.4, Monocytes # 0.3, PUBS MCHC 33.6, MCH 31.3 H Current Medication Orders Sig/Vickie Start time Last Medication Dose Route Stop Time Status Admin Hydroxyzine HCl 25 MG ONCE ONE 09/09 1515 DC 08/ IM 09/09 1516 1522 Potassium Chloride 40 MEQ ONCE ONE 09/09 1515 CAN PO 09/09 1516 Potassium Chloride 0 .STK-MED ONE 09/09 1512 DC PO Hydroxyzine HCl 0 .STK-MED ONE 09/09 1511 DC IM Sodium Chloride 1,000 ML .Q1H1M 09/09 1445 DC 08/ IV 09/09 1545 1436 Sodium Chloride 10 ML PRN PRN 09/09 1445 AC IV 09/10 1432 Aspirin 324 MG ONCE ONE 09/09 1430 DC 08/ PO 09/09 1431 1434 Sodium Chloride 1,000 ML .Q1M 09/09 1430 CAN IV 09/09 1430 Sodium Chloride 1,000 ML .STK-MED ONE 09/09 1427 DC IV Aspirin 0 .STK-MED ONE 09/09 1426 DC .ROUTE Sodium Chloride 10 ML PRN PRN 08/02 1415 AC IV 09/10 1412 Orders Procedure Date/time Status CULTURE, URINE 09/09 1620 Active TROPONIN I 09/09 1600 Complete ELECTROCARDIOGRAM REQUEST 09/09 141 Active CHEST(2 VIEWS-NOT PORTABLE) 09/09 1412 Active IV SALINE LOCK 09/09 141 Active 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 of ischemic chgs (Stach nonspecific ST changes), no ectopy, normal QRS, normal MO, normal EKG XRAY/CT/US XRAY/CT/US XRAY chest XR interpretation by reviewed by me Xray Results normal/NAD, no infiltrates, normal heart size, normal lung inflation flash Progress ED Progress Notes 1 Date 09/09/16 Time 1505 Comment HR 88 NSR. ED Progress Notes 2 Date 09/09/16 Time 1659 Comment Resting comfortably now. Stable at DC Departure Departure Time of Disposition 165 Disposition DC Home or Self Care(routine) Clinical Impression Primary Impression: Atypical chest pain Condition STABLE Referrals Nyasia Koch MD (Family) Roland Singletary MD Patient Instructions DI for Atypical Chest Pain Additional Instructions Advil as needed, see Dr. Singletary next week, and Dr. Koch in one to two days for recheck. Discharge Counseling Counseled pt/family regarding diagnosis, test results, medications/RX, home care, follow up needs ED Critical Care Critical Care No at 1700
[2016-09-09 14:27] LABS: LYMPH # 2.4 K/mm3 (0.7-4.5); LYMPH % 39.3 % (10-50.0)
[2016-09-09 14:59] LABS: BUN 10 mg/dL (7-18)
[2016-09-09 15:00] LABS: GFR (ESTIMATED) 56 ML/MIN (59-)
[2016-09-09 16:31] LABS: URINE BILIRUBIN - DIPSTICK NEGATIVE (NEG); URINE BLOOD 1+ (NEG)
[2016-09-09 17:12] VITALS: BP 117/94
--- NOTE | 2016-09-10 10:40 | RADIOLOGY REPORT PS360 ---
CHEST(2 VIEWS-NOT PORTABLE) INDICATION: Chest pain COMPARISON: Portable upright chest 04/08/2009 FINDINGS: The lung rehman are well expanded and appear clear of infiltrate. The cardiomediastinal silhouette and vascularity are normal. The costophrenic angles are clear. The bony thorax is normal. IMPRESSION: Normal chest.
--- OUTSIDE RECORDS SUMMARY | 2016-09-11 21:35 | External Medical Summary Rpt ---
Author Author , RAY Organization RAY Address Unknown Phone [email or web address] Care Team Providers Care Technology Services Manager Name Role Phone [facility] Unavailable Unavailable DEPARTMENT, [facility] Unavailable Unavailable DEPARTMENT, [facility] VILLAVICENCIO DORIAN, VILLAVICENCIO Unavailable Unavailable DORIAN VILLAVICENCIO DORIAN, VILLAVICENCIO Unavailable Unavailable [facility], [facility] Un[facility] [place] [place] Unavailable Unavailable [place], [facility] JOSIE Murrell, GORGE Murrell Unavailable Unavailable GORGE DIXON Unavailable Unavailable Nyasia GILLETTE COOPER, Unavailable Unavailable MARIANNE CARDOZO Unavailable Unavailable ANTHONY KRAFT, Unavailable Unavailable [facility] Unavailable Unavailable [facility], [facility] Unavailable Unavailable INC, [facility] Unavailable Unavailable HOSPITAL P, [facility] SANDOVAL JESSICA, SANDOVAL JESSICA Unavailable Unavailable SANDOVAL JESSICA, SANDOVAL JESSICA Unavailable Unavailable [facility], Unavailable Unavailable [facility] Unavailable Unavailable IMAGING ASS, [facility] JOE VANI Unavailable [...] DWI, KELLY Unavailable Unavailable JR DWI JANET JULIO, Unavailable Unavailable OMAR CHARLES JR, Unavailable Unavailable OMAR MADDOX MULBERRY EDEN, Unavailable Unavailable MULBERRY EDEN MULBERRY EDEN, Unavailable Unavailable MULBERRY EDEN [facility], [facility]available Unavailable [facility], Unavailable Unavailable [facility] Unavailable Unavailable LAB, [facility] Unavailable Unavailable LAB, [facility] Unavailable [facility]available DEPARTNY, [facility] Unavailable [facility]available [facility], [facility] Unavailable Unavailable DEPARTMENT, [facility] DE[facility] MARTHA MARTHA Unavailable Unavailable ELÍAS PATEL, ELÍAS Unavailable Unavailable AMANDA [facility] Unavailable Unavailable LLC., [facility] Unavailable Unavailable LLC., [facility] # Unavailable Unavailable [id number], [facility] # [id number] HATTIE NELSON, HATTIE Unavailable Unavailable [facility] Unavailable Unavailable OF [facility], [facility] MONTES DE OCA, MARTY FALGUNI Unavailable Unavailable Purpose Continuity of Care Document - 04-17-2009 through 2016 Problems Code Diagnosis DOS Provider Status I10 ESSENTIAL 07-14-2016 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 S PHYSICIANS GROUP [id number] PAIN IN 12-18-2015 [facility] [id number] UNS INJURY 12-18-2015 [place] LT LOWER MEDICAL LEG INITIAL IMAGING ASS ENCOUNTER Z23 ENCOUNTER 11-26-2015 M[facility] FOR HEALTH IMMUNIZATIO DEPARTMENT N Z302 ENCOUNTER 12-10-2014 [facility] FOR PHYSICIANS STERILIZATI GROUP ON [id number] ENCOUNTER 12-07-2014 [facility] PREPROCEDUR INC AL LABORATORY EXAM Z309 ENCOUNTER 12-07-2014 [facility] CONTRACEPTI INC VE MANAGEMENT UNS Z3009 ENCOUNTER 11-27-2014 [facility] OT GENERAL PHYSICIANS GROUP CROSSCUTTER ROLLED GLASS&ADV ICE CONTRACEPT Z9851 TUBAL 11-27-2014 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 TRICHOMONIA GROUP SIS 16103 UNSPECIFIED 10-25-2014 [facility] VAGINITIS PHYSICIANS AND GROUP VULVOVAGINI TIS V2509 OTH GENERAL 10-25-2014 [facility] CNSL&ADVICE GROUP CONTRACEPT MANAGEMENT V692 PROBLEMS 10-25-2014 [facility] RELATED TO [facility] HIGH-RISK INC SEXUAL BEHAVIOR 6235 LEUKORRHEA 09-19-2014 KELLY LUQUE NOT PRIMARY SPECIFIED CARE CENTER INFECTIVE V2549 SURVEILLANC 08-20-2014 MENDY LUQUE E OTH PREV HEALTH PRSC DEPARTMENT CONTRACEPT METHOD 0542 HERPETIC 07-05-2014 [facility] ATITIS 7464 CONGENITAL 07-05-2014 [facility] CARE INSUFFICIEN ASSOCIATES CY OF AORTIC VALVE 7840 HEADACHE 07-05-2014 [facility] 7851 PALPITATION 07-05-2014 [facility] S ASSOCIATES 4019 UNSPECIFIED 03-14-2014 COMBINED ESSENTIAL PHYSICIANS HYPERTENSIO LA N 460 ACUTE 12-02-2013 LAB JOE NASOPHARYNG VANI ITIS HOLDINGS 7821 RASH AND 12-01-2013 [facility] OTHER ASSOCIATES NONSPECIFIC SKIN ERUPTION V2689 OTHER 11-08-2013 MENDY CO SPECIFIED HEALTH PROCREATIVE DEPARTMENT MANAGEMENT 7295 PAIN IN 08-07-2013 MULBERRY SOFT EDEN TISSUES OF LIMB 6259 UNSPEC 03-23-2013 VILLAVICENCIO DORIAN SYMPTOM ASSOC W/FEMALE GENITAL ORGANS 61027 ABDOMINAL 03-23-2013 VILLAVICENCIO DORIAN PAIN, LEFT LOWER QUADRANT 48100 REGULAR 03-22-2013 SANDOVAL JESSICA ASTIGMATISM 6250 DYSPAREUNIA 03-16-2013 VILLAVICENCIO DORIAN 42985 ABDOMINAL 03-16-2013 VILLAVICENCIO DORIAN PAIN, UNSPECIFIED SITE 4871 INFLUENZA 02-20-2013 FABIANA R WITH OTHER H RESPIRATORY MANIFESTATI ONS 51207 HEMATURIA 06-25-2010 [facility] UNSPECIFIED MEDICAL IMAGING ASS 00226 ABDOMINAL 06-25-2010 N[facility]OLAS PAIN OTHER [facility] SPECIFIED INC SITE 4240 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ASSOCIATES SKIN OF TRUNK EXCEPT SCROTUM 55881 OTHER 05-15-2009 [facility] ANXIETY [facility] STATES 2382 NEOPLASM OF 05-01-2009 [facility] UNCERTAIN [facility]ATES BEHAVIOR OF SKIN 95163 VERTIGO 04-24-2009 [facility] LATE EFFECT ASSOCIATES CEREBROVASC ULAR DISEASE 7804 DIZZINESS 04-24-2009 [facility] GIDDINESS GROUP 48618 CHEST PAIN 04-24-2009 [place] [facility]PEC[facility] 32078 UNSPECIFIED 04-17-2009 [facility] VIRAL [facility] INFECTION [...] ia de te s n re d IB 55 07 08 40 10 00 CL Ac UP 11 -0 -0 .0 00 IN ti RO 10 8- 4- 00 00 IC ve FE 68 20 20 43 N 20 17 17 63 PH 40 1 17 AR 0 MA MG CY TA BL ET LI 68 07 08 30 30 00 CL Ac SI 18 -1 -0 .0 00 IN ti NO 00 1- 4- 00 00 IC ve KS 51 20 20 43 IL 90 17 17 66 PH -H [address] MA Z CY 20 -1 2. 5 MG TA B TR 00 06 07 90 30 00 CL Ac AM 37 -2 -2 .0 00 IN ti AD 88 8- 1- 00 00 IC ve OL 08 20 20 43 -A 80 17 17 53 PH CE 5 22 AR TA MA WY CY NO PH N 37 .5 -3 25 ME 57 06 07 60 30 00 CL Ac TO 23 -2 -1 .0 00 IN ti KS 70 1- 4- 00 00 IC ve OL 10 20 20 42 OL 19 17 17 40 PH 9 92 AR TA MA RT CY RA TE 50 MG TA B LI 68 06 06 60 30 00 CL Ac SI 18 -0 -3 .0 00 IN ti NO 00 6- 0- 00 00 IC ve KS 98 20 20 43 IL 00 17 17 31 PH 3 88 AR 10 MA CY MG TA BL ET ME 57 05 06 60 30 00 CL Ac TO 23 -2 -2 .0 00 IN ti KS 70 7- 3- 00 00 IC ve [...] PH CE 5 81 AR TA MA WY CY NO PH N 37 .5 -3 [...] 23 -2 -2 .0 00 IN ti KS 70 8- 6- 00 00 IC ve OL 10 20 20 42 OL 19 17 17 40 PH 9 92 AR TA MA RT CY RA TE 50 MG TA B ME 00 03 04 60 30 00 CL Ac TO 59 -3 -2 .0 00 IN ti KS 10 1- 8- 00 00 IC ve [...] PH CE 5 50 AR TA MA WY CY NO PH N 37 .5 -3 25 ME 00 03 03 60 30 00 CL Ac TO 59 -0 -3 .0 00 IN ti KS 10 3- 1- 00 00 IC ve [...] PH CE 5 77 AR TA MA WY CY NO PH N 37 .5 -3 25 ME 00 02 03 60 30 00 CL Ac TO 59 -0 -0 .0 00 IN ti KS 10 3- 3- 00 00 IC ve [...] PH CE 5 55 AR TA MA WY CY NO PH N 37 .5 -3 [...] 59 -0 -0 .0 00 IN ti KS 10 2- 3- 00 00 IC ve OL 46 20 20 40 OL 21 17 17 74 PH 0 71 AR TA MA RT CY RA TE 50 MG TA B DI 51 12 01 12 30 00 [...] 50 CY 0 MG TA BL ET TR 00 12 01 45 15 00 CL Ac AM 37 -0 -1 .0 00 IN ti AD 88 9- 3- 00 00 IC ve OL 08 20 20 41 -A 80 16 17 57 PH CE 5 55 AR TA MA WY CY NO PH N 37 .5 -3 25 ME 00 12 01 60 30 00 CL Ac TO 59 -0 -0 .0 00 IN ti KS 10 5- 9- 00 00 IC ve [...] -0 -1 .0 IN 38 OP ti KS 40 2- 4- 00 IC 21 ER ve OL 40 20 20 OL 50 11 11 PH RADHA 1 AR HN VERDIN MA G CC CY ER LL C 50 MG TA B CI 00 03 04 2 15 30 CL 23 CO Ac TA 37 -1 -1 .0 IN 48 OP ti LO 86 7- 4- 00 IC 67 ER ve KS 23 20 20 AM 30 11 11 [...] 7- 7- 00 IC 67 ER ve KS 23 20 20 AM 30 11 11 PH RADHA 1 AR HN HB MA G R CY 40 LL MG C TA BL ET ME 49 03 03 4 60 30 CL 23 CO Ac TO 88 -0 -1 .0 IN 38 OP ti KS 40 2- 4- 00 IC 21 ER [...] -1 -1 .0 IN 31 OP ti KS 40 4- 4- 00 IC 78 ER [...] -1 -1 .0 IN 31 OP ti KS 40 4- 3- 00 IC 78 ER [...] -1 -1 .0 IN 31 OP ti KS 40 4- 4- 00 IC 78 ER [...] -1 -1 .0 IN 31 OP ti KS 40 4- 0- 00 IC 78 ER [...] -1 -1 .0 IN 31 OP ti KS 40 4- 1- 00 IC 78 ER [...] -1 -1 .0 IN 31 OP ti KS 40 4- 4- 00 IC 78 ER [...] -1 -1 .0 IN 23 OP ti KS 40 0- 2- 00 IC 11 ER [...] -1 -1 .0 IN 23 OP ti KS 40 0- 3- 00 IC 11 ER [...] -1 -0 .0 IN 23 OP ti KS 40 0- 9- 00 IC 11 ER [...] -1 -1 .0 IN 23 OP ti KS 40 0- 1- 00 IC 11 ER [...] -1 -1 .0 IN 23 OP ti KS 40 0- 2- 00 IC 11 ER [...] -1 -1 .0 IN 23 OP ti KS 40 0- 0- 00 IC 11 ER [...] Order Detail nces retati t Range on Urinalysis dipstick W Reflex Microscopic panel in Urine (09-09-2016 16:20) Bacteri 3+ O complet a 017 ed [Presen 16:20 ce] in Urine sedimen t by Light microsc opy Erythro OCC 0 complet cytes 017 ed [Presen 16:20 ce] in Urine sedimen t by Light microsc opy Epithel 10-20 0#/hp complet ial 017 f - ed cells.s 16:20 5#/hp quamous f [Presen ce] in Urine sedimen t by Microsc opy high power field Urinalysis dipstick W Reflex Microscopic panel in Urine (09-09-2016 16:20) Appeara CLEAR CLEAR complet nce of 017 ed Urine 16:20 Bilirub NEGATIV NEG complet in 017 E ed [Presen 16:20 ce] in Urine by Test strip Erythro 1+ NEG Abnorma complet cytes 017 l ed [Presen 16:20 ce] in Urine Color YELLOW YELLOW complet of 017 ed Urine 16:20 Ketones NEGATIV NEG complet 017 E ed [Presen 16:20 ce] in Urine by Automat ed test strip Mucus NEGATIV NEG complet [Presen 017 E ed ce] in 16:20 Urine sedimen t by Light microsc opy Nitrite NEGATIV NEG complet 017 E ed [Presen 16:20 ce] in Urine by Test strip Urobili 0.2 NEG complet nogen 017 ed [Presen 16:20 ce] in Urine by Test strip CHLAMYDIA AND GONORRHEA TESTING (01-25-2013 09:00) Chlamyd --2 NEGATIV complet ia 013 E ed trachom 09:00 atis rRNA [Presen ce] in Unspeci fied specime n by Probe & target amplifi cation method Neisser 01-25-2 NEGATIV complet ia 013 E ed gonorrh 09:00 oeae rRNA [Presen ce] in Unspeci fied specime n by Probe & target amplifi cation method CHLAMYDIA AND GONORRHEA TESTING (01-25-2013 09:00) COLLECT --2 K. complet OR 013 YOUNG, ed 09:00 TERMINAL GAUGER ETHNICI 01-25-2 WHITE, complet TY 013 NON-HIS ed 09:00 PANIC KIT 18-2 05/09/19 complet EXPIRAT 013 14 ed ION 09:00 DATE SYMPTOM 18-2 YES complet S 013 ed 09:00 REASON -- REVISIT complet FOR 013 /ANNUAL ed REQUEST 09:00 FAMILY PLANNIN G VISIT SPECIME 01-25-2 FEMALE complet N 013 ENDOCER ed SOURCE 09:00 VICAL PREGNAN NO complet T 013 ed 09:00 CHART N/A complet NUMBER 013 ed 09:00 Chlamyd Pending complet ia 013 ed trachom 09:00 atis rRNA [Presen ce] in Unspeci fied specime n by Probe & target amplifi cation method Neisser Pending complet ia 013 ed gonorrh 09:00 oeae rRNA [Presen ce] in Unspeci fied specime n by Probe & target amplifi cation method Procedures Procedure DOS Code Location Performer Comment ECG 93193 NICHOLAS PETERSON ROUTINE 7 [facility] ECG INC INC W/LEAST 12 LDS TRCG ONLY W/O I&R ECG 26300 [facility] ROUTINE 7 PHYSICIAN ECG S GROUP W/LEAST 12 LDS I&R ONLY ECHO 16314 NICHOLAS PETERSON TTHRC R-T 7 [facility] 2D INC INC W/WOM-MOD E COMPL SPEC&COLR D RADIOLOGI 31461 NICHOLAS PETERSON C 6 [facility] EXAMINATI INC INC ON KNEE 3 VIEWS IIV4 VACC 10318 MENDY BROOKE SPLIT 6 [facility] CO HEALTH VIRUS 0.5 ML DOS DEPARTMEN DEPARTMEN FOR IM T T USE ECG 20742 NICHOLAS MENDOZA JR ROUTINE 5 [facility] W/LEAST P 12 LDS I&R ONLY INJECTION J2710 NICHOLAS PETERSON 5 [facility] NEOSTIGMI INC INC NE METHYLSUL FATE UP TO 0.5 MG ANES IPER 29686 [facility] LWR ABD 5 ANESTH AMANDA W/LAPS OF THE TUBAL BLUE LIGATION/ TRANSECT LAPAROSCO 68115 NICHOLAS EPTERSON PY W/PLMT 5 [facility] INC INC OCCLUSION DEVICE OVIDUCTS COLLECTIO 89402 NICHOLAS PETERSON N VENOUS 5 [facility] BLOOD INC INC VENIPUNCT URE CYANOCOBA 72730 NICHOLAS PETERSON JULISSA 5 [facility] VITAMIN INC INC B-12 GONADOTRO 94753 NICHOLAS PETERSON PIN 5 [facility] CHORIONIC INC INC QUALITATI VE BLOOD 01376 NICHOLAS PETERSON COUNT 5 [facility] COMPLETE INC INC AUTO&AUTO DIFRNTL WBC COMPREHEN 21465 NICHOLAS PETERSON SIVE 5 [facility] METABOLIC INC INC PANEL CYTP C/V 99897 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 SAUD SRC WET 5 PHYSICIAN DORIAN [facility] GROUP NFCT AGT IADNA 14179 NICHOLAS PETERSON CHLAMYDIA 5 [facility] INC INC TRACHOMAT IS AMPLIFIED PROBE TQ SMR PRIM 73730 KELLY MONTES DE OCA SRC WET 5 [facility] NFCT AGT CENTER 25 22028 COMBINED COMBINED HYDROXY 5 PHYSICIAN PHYSICIAN INCLUDES S LA S LA FRACTIONS IF PERFORMED CYANOCOBA 81044 COMBINED COMBINED JULISSA 5 PHYSICIAN PHYSICIAN VITAMIN S LA S LA B-12 COMPREHEN 67807 COMBINED COMBINED SIVE 5 PHYSICIAN PHYSICIAN METABOLIC S LA S LA PANEL XTRNL ECG 01262 NICHOLAS MENDOZA JR 5 [facility] S RHYTHM P W/I&R UP TO 48 HRS XTRNL ECG 75220 NICHOLAS PETERSON & 48 HR 5 [facility] RECORDING INC INC EXTERNAL 43360 NICHOLAS PETERSON ECG 5 [facility] SCANNING INC INC ANALYSIS REPORT ANTIBODY 92583 LAB JOE LAB JOE ANA-B 4 VANI VANI ARR EB HOLDINGS HOLDINGS VIRUS EARLY ANTIGEN EA ANTIBODY 87579 LAB JOE LAB JOE ANA-B 4 VANI VANI ARR EB HOLDINGS HOLDINGS VIRUS NUCLEAR AG EBNA ANTISTREP 80065 LAB JOE LAB JOE TOLYSIN O 4 VANI VANI TITER HOLDINGS HOLDINGS ANTIBODY 09150 LAB JOE LAB JOE ANA-B 4 VANI VANI ARR EB HOLDINGS HOLDINGS VIRUS VIRAL CAPSID VCA IAADIADOO 04098 FAMILY MULBERRY 4 CARE EDEN STREPTOCO ASSOCIATE CCUS S GROUP A BLOOD 03316 FAMILY MULBERRY COUNT 4 CARE EDEN COMPLETE ASSOCIATE AUTO&AUTO S DIFRNTL WBC DUP-SCAN 09661 NICHOLAS PETERSON XTR VEINS 4 [facility] INC INC [place]IL[place] L/[place] [address] SAUD VILLAVICENCIO TRANSVAGI 4 DORIAN DORIAN NAL OPHTH 17185 [facility] 4 XM&EVAL COMPRE NEW PT 1/> VST BLOOD 02875 NICHOLAS PETERSON COUNT 4 [facility] COMPLETE INC INC AUTO&AUTO DIFRNTL WBC URNLS DIP 61399 SAUD VILLAVICENCIO 4 DORIAN DORIAN STICK/TAB LET RGNT NON-AUTO W/O MICRSCP URINE 62474 SAUD VILLAVICENCIO 4 DORIAN DORIAN TEST VISUAL COLOR CMPRSN METHS BLOOD 85462 FABIANA FABIANA COUNT 4 R H R H COMPLETE AUTO&AUTO DIFRNTL WBC COLLECTIO 38149 FABIANA FABIANA N 4 R H R H CAPILLARY BLOOD SPECIMEN IAADIADOO 83614 FABIANA FABIANA [place] [address] NICHOLAS PETERSON ABDOMEN & 1 [facility] PELVIS INC INC W/O CONTRAST MATERIAL 3D 56328 NICHOLAS PETERSON RENDERING 1 [facility] INC INC W/INTERP& POSTPROC DIFF WORK STATION CUL BACT 49096 COMBINED COMBINED XCPT 1 PHYSICIAN PHYSICIAN URINE S LA S LA BLOOD/STO OL AEROBIC ISOL SUSCEPTIB 89606 COMBINED COMBINED ILITY 1 PHYSICIAN PHYSICIAN STUDY S LA S [place] B[place] [address] NICHOLAS PETERSON ACTIVATED 1 [facility] ECG INC INC RECORD MONITOR 30 DAYS CONTRACEP S4993 JASON GOMEZ TIVE 1 [facility] DEPARTME DEPARTME CONTROL ECHO 70582 [facility] TRANSESOP 1 PHYSICIAN HENRI HAG R-T S GROUP 2D W/PRB IMG ACQUISJ I&R DOP 19807 [facility] ECHOCARD 1 PHYSICIAN HENRI COLOR S GROUP FLOW VELOCITY MAPPING DOPPLER 95747 [facility] ECHOCARD 1 PHYSICIAN HENRI PULSE S GROUP WAVE W/SPECTRA L DISPLAY URINE 64745 NICHOLAS PETERSON 1 [facility] TEST INC [place] [address] NICHOLAS PETERSON INFUSION 1 [facility] THERAPY INC INC PROPHYLAX IS/DX EA HOUR ECHO 66320 NICHOLAS JANET TTHRC R-T [address] W/WOM-MOD P E COMPL SPEC&COLR D LAPAROSCO 69218 NICHOLAS PETERSON PY 0 [facility] W/[place] [address] PATHOLOGY PATHOLOGY SURG 0 & & PATHOLOGY CYTOLOGY CYTOLOGY LAB LAB GROSS&[place] [address] NICHOLAS PETERSON INFUSION 0 [facility]OS[facility] THERAPY INC INC PROPHYLAX IS/DX EA HOUR ANESTHESI 42185 [facility] G[facility] A 0 ANESTH INTRAPERI OF THE TONEAL BLUE LOWER ABD W/LAPS NOS HYSTEROSC 6812 NICHOLAS PETERSON OPY 0 [facility] INC INC OTHER 6909 NICHOLAS PETERSON DILATION 0 [facility] AND INC INC CURETTAGE OF UTERUS APPLICATI 9977 NICHOLAS PETERSON ON/ADMIN 0 [facility]OS[facility] ADHESION INC INC BARRIER SUBSTANCE S LAPAROSCP 6581 NICHOLAS PETERSON IC LYSIS 0 [facility] ADHESIONS INC INC OVARY&FAL LOPIAN TUBE BASIC 41239 NICHOLAS PETERSON METABOLIC 0 [facility] PANEL INC INC CALCIUM TOTAL BLOOD 43803 NICHOLAS PETERSON COUNT 0 [facility] COMPLETE INC INC AUTO&AUTO DIFRNTL WBC GONADOTRO 63337 NICHOLAS PETERSON PIN 0 [facility] CHORIONIC INC INC QUALITATI VE CULTURE 92641 LABORATOR LABORATOR BACTERIAL 0 Y & Y & BIODIAGNO BIODIAGNO QUANTTATI [place] [address] [facility] [place] HATTIE TRANSVAGI 0 [facility] CENTER URNLS DIP 37354 LABORATOR LABORATOR 0 Y & Y & STICK/TAB BIODIAGNO BIODIAGNO LET RGNT STICS STICS AUTO W/O MICROSCOP Y CONTRACEP S4993 JASON GOMEZ TIVE 0 [facility] DEPARTNY DEPARTNY CONTROL CYTP 16824 [facility] CERV/VAG 0 CYTOLOGY CYTOLOGY [employer] LAYER PREP MNL SCREEN CONTRACEP S4993 JASON GOMEZ TIVE 0 [facility] CONTROL OPH 33488 JANINA SANDOVAL [facility] MEDICAL 0 VISION XM&EVAL COMPRE NEW PT 1/> VST CONTRACEP S4993 JASON GOMEZ TIVE 0 [facility] DEPARTMERIT HEALTH [facility] DEPARTMERIT HEALTH [facility] CONTROL T T EXC B9 04784 Nyasia [place] LESION 0 CARE G MRGN XCP ASSOCIATE SK TG S T/A/L 0.5 CM/< SHAVING 13831 FAMILY PENNINGTONNyasia SKIN 0 CARE G LESION 1 ASSOCIATE TRUNK/ARM S /LEG DIAM 0.5CM/< ECHO 44996 [facility] R-T 0 PHYSICIAN ANTHONY Rodrigues S GROUP W/WOM-MOD E COMPL SPEC&COLR D RADIOLOGI 28883 Chelsie PENA 0 MEDICAL OMAR Mike EXAMINATI IMAGING ON CHEST ASSOCIATE SINGLE S VIEW FRONTAL BLOOD 60869 FAMILY PENNINGTONNyasia COUNT 0 CARE G COMPLETE ASSOCIATE AUTO&AUTO S DIFRNTL WBC BLOOD 11135 [facility] [place] J COUNT 0 CARE G COMPLETE ASSOCIATE AUTO&AUTO S DIFRNTL WBC Encounters Encounter Start End Date Code Location Performer Type Date OFFICE 91593 [facility] OUTPATIEN 7 7 PHYSICIAN T NEW 45 S GROUP MINUTES [facility] OFF[facility] [id number] [facility] GORGE OUTPATIEN 6 6 CARE TORI T VISIT ASSOCIATE 15 S MINUTES [facility] T OFF[facility] 30[facility] OUTPATIEN 5 5 PHYSICIAN DORIAN T [facility]ISIT S GROUP 15 MINUTES [facility] 48269 KELLY FERGUSON FALGUNI PREVENTIV 5 5 PRIMARY E MED EST CARE PATIENT CENTER 18-[address] [facility] OUTPATIEN 5 5 PHYSICIAN DORIAN T VISIT S GROUP 25 MINUTES [facility] T OFF[facility] 48052 KELLY MONTES DE OCA OUTPATIEN 5 5 PRIMARY T VISIT CARE 15 CENTER MINUTES OFFICE 17935 [facility] V[facility] DEPARTMEN MINUTES T T OFFICE 16623 FAMILY GORGE OUTPATIEN 5 5 CARE TORI T VISIT ASSOCIATE 15 S MINUTES OFFICE 40812 [facility]PAT[facility] 5 [facility] V[facility] DEPART[facility] T OFF[facility] 29424 [facility]PATI[facility] 5 5 [facility] V[facility] DEPART[facility] MINUTES T T OFFICE 68380 [facility] OUTPATIEN 4 4 [facility] V[facility] 10 [facility] MINUTES T T OFFICE 96211 FAMILY MULBERRY OUTPATIEN 4 4 CARE EDEN T VISIT ASSOCIATE 15 S MINUTES PERIODIC 19281 BRACKHUMZA BRACKEN PREVENTIV 4 4 [facility] EST PATIENT [facility] 18-39 YRS T T OFFICE 99340 [facility]PATI[facility] 4 [facility] V[facility] 10 [facility] MINUTES T T [facility] T OFFICE 58965 MULBERRY MULBERRY OUTPATIEN 4 4 EDEN EDEN T VISIT 15 MINUTES OFFICE 12952 BRACK[facility] BRACKEN OUTPATIEN 4 4 [facility] 10 [facility] T T OFFICE 09841 SAUD VILLAVICENCIO OUTPATIEN 4 4 DORIAN DORIAN T [facility] 45 MINUTES [facility] OFFICE 22430 FABIANA JUNG OUTPATIEN 4 4 R H R H T VISIT 15 MINUTES [facility]PATI[facility] 1 1 PHYSICIAN HENRI T VISIT S GROUP 25 MINUTES [facility] T OFFICE 01271 [facility] OUTPATIEN 1 1 PHYSICIAN HENRI T VISIT S GROUP 25 MINUTES OFFICE 34832 JASON GOMEZ OUTPATIEN 1 1 [facility] T VISIT [facility]ALTH [facility] 10 [facility] 70167 [facility] 0 [facility]IAN T VISIT [facility] 15 VLADISLAV MINUTES [facility] 00684 [facility] VILLAVICENCIO OUTPATIEN 0 0 HEALTH DORIAN T VISIT CLINIC OF 15 VLADISLAV MINUTES OFFICE 20564 WOMEN'S VILLAVICENCIO CONSULTAT 0 0 HEALTH DORIAN ION CLINIC OF NEW/ESTAB VLADISLAV PATIENT 60 MIN OFFICE 05669 FAMILY GORGE Murrell OUTPATIEN 0 0 CARE T VISIT ASSOCIATE 25 S MINUTES OFFICE 73486 [facility] HATTIE OUTPATIEN 0 0 PRIMARY DON T VISIT CARE 15 CENTER MINUTES PERIODIC 90832 JASON GOMEZ PREVENTIV 0 0 CO CO E MED EST HEALTH HEALTH PATIENT [facility] 18-39 YRS OFFICE 25753 JASON GOMEZ OUTPATIEN 0 0 CO CO T VISIT HEALTH HEALTH 10 [facility] MINUTES OFFICE 38758 JASON GOMEZ OUTPATIEN 0 0 CO CO T VISIT HEALTH HEALTH 10 [facility] MINUTES T T OFFICE 17983 Nyasia CAVAZOS OUTPATIEN 0 0 CARE G T VISIT ASSOCIATE 15 S MINUTES OFFICE 89368 Nyasia CAVAZOS OUTPATIEN 0 0 CARE G T VISIT ASSOCIATE 15 S MINUTES
--- OUTSIDE RECORDS SUMMARY | 2016-09-11 21:35 | External Medical Summary Rpt ---
Author Author , RAY Organization RAY Address Unknown Phone [email or web address] Care Team Providers Care Mounted Police Officer Name Role Phone REPLACED BY [facility] Unavailable Unavailable DEPARTMENT, [facility] REPLACED BY [facility] Unavailable Unavailable DEPARTMENT, [facility] DEPARTMENT VILLAVICENCIO DORIAN, VILLAVICENCIO Unavailable [...] CARE Unavailable Unavailable ASSOCIATES, [facility] Unavailable Unavailable INC, [facility] Unavailable Unavailable HOSPITAL P, [facility]ITAL P SANDOVAL JESSICA, SANDOVAL JESSICA Unavailable Unavailable SANDOVAL JESSICA, SANDOVAL JESSICA Unavailable Unavailable [facility], Unavailable Unavailable [facility] Unavailable Unavailable IMAGING ASS, [facility] JOE VANI Unavailable [...] Unavailable Unavailable LAB, PATHOLOGY & CYTOLOGY LAB [facility] Unavailable Unavailable DEPARTNH, [facility] Unavailable Unavailable [facility] Unavailable Unavailable DEPARTMENT, [facility] DEPARTMENT MARTHA MARTHA Unavailable Unavailable ELÍAS PATEL, ELÍAS Unavailable Unavailable [facility] Unavailable Unavailable LLC., [facility] Unavailable Unavailable LLC., 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 R002 PALPITATION 07-14-2016 [facility] S PHYSICIANS GROUP [id number] PAIN IN 12-18-2015 [place] [facility]NEE [facility] [id number] UNS INJURY 12-18-2015 [place] LT LOWER MEDICAL LEG INITIAL IMAGING ASS ENCOUNTER Z23 ENCOUNTER 11-26-2015 MENDY LUQUE FOR HEALTH IMMUNIZATIO DEPARTMENT N Z302 ENCOUNTER 12-10-2014 [facility] FOR PHYSICIANS STERILIZATI GROUP ON C43847 ENCOUNTER 12-07-2014 [facility] PREPROCEDUR INC AL LABORATORY EXAM Z309 ENCOUNTER 12-07-2014 [facility] CONTRACEPTI INC VE MANAGEMENT UNS Z3009 ENCOUNTER 11-27-2014 [facility] OT 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&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 ICE CONTRACEPT Z9851 TUBAL 11-27-2014 [facility] LIGATION PHYSICIANS STATUS GROUP 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 Z1151 ENCOUNTER 11-14-2014 LABORATORY FOR JOE OF SCREENING VANI H FOR HUMAN PAPILLOMAVI MILO Z124 ENCOUNTER 11-14-2014 LABORATORY OTHER JOE OF SCREENING VANI H MALIG NEOPLASM CERVIX P55614 ENCOUNTER 11-13-2014 KELLY LUQUE ASSOCIATE LOAN OFFICER EXAM PRIMARY GENERAL RTN CARE CENTER W/O ABNORMAL FIND Z713 DIETARY 11-13-2014 KELLY LUQUE COUNSELING PRIMARY AND CARE CENTER SURVEILLANC E Z719 COUNSELING 11-13-2014 KELLY LUQUE UNSPECIFIED PRIMARY CARE CENTER V0481 NEED 11-01-2014 MENDY LUQUE PROPHYLACTI HEALTH C DEPARTMENT VACCINATION &INOCULATIO N FLU 1319 UNSPECIFIED 10-25-2014 [facility] PHYSICIANS TRICHOMONIA GROUP SIS 83177 UNSPECIFIED 10-25-2014 [facility] VAGINITIS PHYSICIANS AND GROUP VULVOVAGINI TIS V2509 OTH GENERAL 10-25-2014 [facility] PHYSICIANS CNSL&ADVICE GROUP CONTRACEPT MANAGEMENT V692 PROBLEMS 10-25-2014 [facility]AS RELATED TO [facility] HIGH-RISK INC SEXUAL BEHAVIOR 6235 LEUKORRHEA 09-19-2014 KELLY LUQUE NOT PRIMARY SPECIFIED CARE CENTER INFECTIVE V2549 SURVEILLANC 08-20-2014 MENDY LUQUE E OTH PREV HEALTH PRSC DEPARTMENT CONTRACEPT METHOD 0542 HERPETIC 07-05-2014 [facility]INGIV[facility]OCIATES ATITIS 7464 CONGENITAL 07-05-2014 [facility] CARE INSUFFICIEN ASSOCIATES CY OF AORTIC [...] VILLAVICENCIO DORIAN SYMPTOM ASSOC W/FEMALE GENITAL ORGANS 94840 ABDOMINAL 03-23-2013 VILLAVICENCIO DORIAN PAIN, LEFT LOWER QUADRANT 58318 REGULAR 03-22-2013 SANDOVAL JESSICA ASTIGMATISM 6250 DYSPAREUNIA 03-16-2013 VILLAVICENCIO DORIAN 36867 ABDOMINAL 03-16-2013 VILLAVICENCIO DORIAN PAIN, UNSPECIFIED SITE 4871 INFLUENZA 02-20-2013 FABIANA R WITH OTHER H RESPIRATORY MANIFESTATI ONS 07408 HEMATURIA 06-25-2010 [facility] IM[facility] ASS 23895 ABDOMINAL 06-25-2010 NICHOLAS PAIN OTHER MEM HOSP SPECIFIED INC SITE 4240 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 P V6700 FOLLOW-UP 12-02-2009 WOMEN'S EXAMINATION [...] LABORATORY & BIODIAGNOST ICS V7231 ROUTINE 10-21-2009 [facility] GYNECOLOGIC CYTOLOGY AL [facility] 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0 00 IN ti NO 00 6- 0- 00 00 IC ve MI 98 20 20 43 IL 00 17 17 31 PH 3 88 AR 10 MA CY MG TA BL ET ME 57 05 06 60 30 00 CL Ac TO 23 -2 -2 .0 00 IN ti MI 70 7- 3- 00 00 IC ve [...] PH CE 5 81 AR TA MA ME CY NO PH N 37 .5 -3 [...] 23 -2 -2 .0 00 IN ti MI 70 8- 6- 00 00 IC ve OL 10 20 20 42 OL 19 17 17 40 PH 9 92 AR TA MA RT CY RA TE 50 MG TA B ME 00 03 04 60 30 00 CL Ac TO 59 -3 -2 .0 00 IN ti MI 10 1- 8- 00 00 IC ve [...] PH CE 5 50 AR TA MA ME CY NO PH N 37 .5 -3 25 ME 00 03 03 60 30 00 CL Ac TO 59 -0 -3 .0 00 IN ti MI 10 3- 1- 00 00 IC ve [...] PH CE 5 77 AR TA MA ME CY NO PH N 37 .5 -3 25 ME 00 02 03 60 30 00 CL Ac TO 59 -0 -0 .0 00 IN ti MI 10 3- 3- 00 00 IC ve [...] PH CE 5 55 AR TA MA ME CY NO PH N 37 .5 -3 [...] 59 -0 -0 .0 00 IN ti MI 10 2- 3- 00 00 IC ve [...] PH CE 5 55 AR TA MA ME CY NO PH N 37 .5 -3 25 ME 00 12 01 60 30 00 CL Ac TO 59 -0 -0 .0 00 IN ti MI 10 5- 9- 00 00 IC ve [...] -0 -1 .0 IN 38 OP ti MI 40 2- 4- 00 IC 21 ER ve OL 40 20 20 OL 50 11 11 PH RADHA 1 AR HN VERDIN MA G CC CY ER LL C 50 MG TA B CI 00 03 04 2 15 30 CL 23 CO Ac TA 37 -1 -1 .0 IN 48 OP ti LO 86 7- 4- 00 IC 67 ER ve MI 23 20 20 AM 30 11 11 [...] 7- 7- 00 IC 67 ER ve MI 23 20 20 AM 30 11 11 PH RADHA 1 AR HN HB MA G R CY 40 LL MG C TA BL ET ME 49 03 03 4 60 30 CL 23 CO Ac TO 88 -0 -1 .0 IN 38 OP ti MI 40 2- 4- 00 IC 21 ER [...] -1 -1 .0 IN 31 OP ti MI 40 4- 4- 00 IC 78 ER [...] -1 -1 .0 IN 31 OP ti MI 40 4- 3- 00 IC 78 ER [...] -1 -1 .0 IN 31 OP ti MI 40 4- 4- 00 IC 78 ER [...] -1 -1 .0 IN 31 OP ti MI 40 4- 0- 00 IC 78 ER [...] -1 -1 .0 IN 31 OP ti MI 40 4- 1- 00 IC 78 ER [...] -1 -1 .0 IN 31 OP ti MI 40 4- 4- 00 IC 78 ER [...] -1 -1 .0 IN 23 OP ti MI 40 0- 2- 00 IC 11 ER [...] -1 -1 .0 IN 23 OP ti MI 40 0- 3- 00 IC 11 ER [...] -1 -0 .0 IN 23 OP ti MI 40 0- 9- 00 IC 11 ER [...] -1 -1 .0 IN 23 OP ti MI 40 0- 1- 00 IC 11 ER [...] -1 -1 .0 IN 23 OP ti MI 40 0- 2- 00 IC 11 ER [...] -1 -1 .0 IN 23 OP ti MI 40 0- 0- 00 IC 11 ER [...] K. 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 01-25-2 WHITE, complet TY 013 NON-HIS [...] Procedure DOS Code Location Performer Comment ECG 50277 NICHOLAS PETERSON ROUTINE 7 [facility] ECG INC INC W/LEAST 12 LDS TRCG ONLY W/O I&R ECG 58033 [facility] MARTHA ROUTINE 7 PHYSICIAN ECG S GROUP W/LEAST 12 LDS I&R ONLY ECHO 63507 NICHOLAS PETERSON TTHRC R-T 7 [facility] 2D INC INC W/WOM-MOD E COMPL SPEC&COLR D RADIOLOGI 40453 NICHOLAS PETERSON C 6 [facility] EXAMINATI INC INC ON KNEE 3 VIEWS IIV4 VACC 54598 MENDY BROOKE SPLIT 6 CO HEALTH CO HEALTH VIRUS 0.5 ML DOS DEPARTMEN DEPARTMEN FOR IM T T USE ECG 81594 NICHOLAS MENDOZA JR ROUTINE 5 [facility] W/LEAST P 12 LDS I&R ONLY INJECTION J2710 NICHOLAS PETERSON 5 [facility] NEOSTIGMI INC INC NE METHYLSUL FATE UP TO 0.5 MG ANES IPER 47560 [facility] LWR ABD 5 ANESTH AMANDA W/LAPS OF THE TUBAL BLUE LIGATION/ TRANSECT LAPAROSCO 39794 NICHOLAS PETERSON PY W/PLMT 5 [facility] INC INC OCCLUSION DEVICE OVIDUCTS COLLECTIO 69938 NICHOLAS PETERSON N VENOUS 5 [facility] BLOOD INC INC VENIPUNCT URE CYANOCOBA 16170 NICHOLAS PETERSON JULISSA 5 [facility] VITAMIN INC INC B-12 GONADOTRO 58104 NICHOLAS PETERSON PIN 5 [facility] CHORIONIC INC INC QUALITATI VE BLOOD 46595 NICHOLAS PETERSON COUNT 5 [facility] COMPLETE INC INC AUTO&AUTO DIFRNTL WBC COMPREHEN 04087 NICHOLAS PETERSON SIVE 5 [facility] METABOLIC INC INC PANEL CYTP C/V 68310 LABORATOR LABORATOR AUTO THIN 5 Y JOE OF Y JOE OF LYR VANI VANI PREPJ SCR H H MNL RESCR PHYS IADNA 49672 LABORATOR LABORATOR HUMAN 5 Y JOE OF Y JOE OF PAPILLOMA VANI VANI VIRUS H H HIGH-RISK TYPES OPHTH 35590 SANDOVAL [facility] MEDICAL 5 XM&EVAL COMPRHNSV ESTAB PT 1/> IIV4 VACC 49188 MENDY BROOKE SPLIT 5 CO HEALTH CO HEALTH VIRUS 0.5 ML DOS DEPARTMEN DEPARTMEN FOR IM T T USE IADNA 41332 NICHOLAS PETERSON NEISSERIA 5 [facility] INC INC GONORRHOE AE AMPLIFIED PROBE TQ SMR PRIM 38176 [facility] SAUD SRC WET 5 PHYSICIAN DORIAN [facility] GROUP NFCT AGT IADNA 17702 NICHOLAS PETERSON CHLAMYDIA 5 [facility] INC INC TRACHOMAT IS AMPLIFIED PROBE TQ SMR PRIM 78483 KELLY MONTES DE OCA SRC WET 5 [facility] NFCT AGT CENTER 25 09718 COMBINED COMBINED HYDROXY 5 PHYSICIAN PHYSICIAN INCLUDES S LA S LA FRACTIONS IF PERFORMED CYANOCOBA 77675 COMBINED COMBINED JULISSA 5 PHYSICIAN PHYSICIAN VITAMIN S LA S LA B-12 COMPREHEN 66960 COMBINED COMBINED SIVE 5 PHYSICIAN PHYSICIAN METABOLIC S LA S LA PANEL XTRNL ECG 23802 NICHOLAS MENDOZA JR 5 [facility] S RHYTHM P W/I&R UP TO 48 HRS XTRNL ECG 26016 NICHOLAS PETERSON & 48 HR 5 [facility] RECORDING INC INC EXTERNAL 49855 NICHOLAS PETERSON ECG 5 [facility] SCANNING INC INC ANALYSIS REPORT ANTIBODY 96012 LAB JOE LAB JOE ANA-B 4 VANI VANI ARR EB [employer] VIRUS EARLY ANTIGEN EA ANTIBODY 12778 LAB JOE LAB JOE ANA-B 4 VANI VANI ARR [facility] [employer] VIRUS NUCLEAR AG EBNA ANTISTREP 89088 LAB JOE LAB JOE TOLYSIN O 4 VANI VANI TITER [employer] ANTIBODY 99019 LAB JOE LAB JOE ANA-B 4 VANI VANI ARR EB [employer] VIRUS VIRAL CAPSID VCA IAADIADOO 21496 FAMILY MULBERRY 4 CARE EDEN STREPTOCO ASSOCIATE CCUS S GROUP A BLOOD 24496 FAMILY MULBERRY COUNT 4 CARE EDEN COMPLETE ASSOCIATE AUTO&AUTO S DIFRNTL WBC DUP-SCAN 34328 NICHOLAS PETERSON XTR VEINS 4 [facility] INC INC UNILATER[place] [address] SAUD VILLAVICENCIO TRANSVAGI 4 DORIAN DORIAN NAL OPHTH 14539 [facility] 4 XM&EVAL COMPRE NEW PT 1/> VST BLOOD 43236 NICHOLAS PETERSON COUNT 4 [facility] COMPLETE INC INC AUTO&AUTO DIFRNTL WBC URNLS DIP 54724 SAUD VILLAVICENCIO 4 DORIAN DORIAN STICK/TAB LET RGNT NON-AUTO W/O MICRSCP URINE 76816 SAUD VILLAVICENCIO 4 DORIAN DORIAN TEST VISUAL COLOR CMPRSN METHS BLOOD 32066 FABIANA FABIANA COUNT 4 R H R H COMPLETE AUTO&AUTO DIFRNTL WBC COLLECTIO 34145 FABIANA FABIANA N 4 R H R H CAPILLARY BLOOD SPECIMEN IAADIADOO 27511 FABIANA FABIANA [place] [address] NICHOLAS PETERSON ABDOMEN & 1 [facility] PELVIS INC INC W/O CONTRAST MATERIAL 3D 70085 NICHOLAS PETERSON RENDERING 1 [facility] INC INC W/INTERP& POSTPROC DIFF WORK STATION CUL BACT 75595 COMBINED COMBINED XCPT 1 PHYSICIAN PHYSICIAN URINE S LA S LA BLOOD/STO OL AEROBIC ISOL SUSCEPTIB 50997 COMBINED COMBINED ILITY 1 PHYSICIAN PHYSICIAN STUDY S LA S [place] B[place] [address] NICHOLAS PETERSON ACTIVATED 1 [facility] ECG INC INC RECORD MONITOR 30 DAYS CONTRACEP S4993 JASON GOMEZ TIVE 1 [facility] DEPARTME DEPARTME CONTROL ECHO 41631 [facility] TRANSESOP 1 PHYSICIAN HENRI HAG R-T S GROUP 2D W/PRB IMG ACQUISJ I&R DOP 54053 [facility] ECHOCARD 1 PHYSICIAN HENRI COLOR S GROUP FLOW VELOCITY MAPPING DOPPLER 29792 [facility] ECHOCARD 1 PHYSICIAN HENRI PULSE S GROUP WAVE W/SPECTRA L DISPLAY URINE 23722 NICHOLAS PETERSON 1 [facility] TEST INC [place] [address] NICHOLAS PETERSON INFUSION 1 [facility] THERAPY INC INC PROPHYLAX IS/DX EA HOUR ECHO 73975 NICHOLAS JANET TTHRC R-T [address] W/WOM-MOD P E COMPL SPEC&COLR D LAPAROSCO 23307 NICHOLAS PETERSON PY 0 [facility] W/[place] [address] PATHOLOGY PATHOLOGY SURG 0 & & PATHOLOGY CYTOLOGY CYTOLOGY LAB LAB GROSS&[place] [address] NICHOLAS PETERSON INFUSION 0 [facility]OS[facility] THERAPY INC INC PROPHYLAX IS/DX EA HOUR ANESTHESI 33049 [facility] GLE A 0 ANESTH INTRAPERI OF THE TONEAL BLUE LOWER ABD W/LAPS NOS HYSTEROSC 6812 NICHOLAS PETERSON OPY 0 [facility] INC INC OTHER 6909 NICHOLAS PETERSON DILATION 0 [facility] AND INC INC CURETTAGE OF UTERUS APPLICATI 9977 NICHOLAS PETERSON ON/ADMIN 0 [facility] ADHESION INC INC BARRIER SUBSTANCE S LAPAROSCP 6581 NICHOLAS PETERSON IC LYSIS 0 [facility] ADHESIONS INC INC OVARY&FAL LOPIAN TUBE BASIC 52833 NICHOLAS PETERSON METABOLIC 0 [facility] PANEL INC INC CALCIUM TOTAL BLOOD 58600 NICHOLAS PETERSON COUNT 0 [facility] COMPLETE INC INC AUTO&AUTO DIFRNTL WBC GONADOTRO 14601 NICHOLAS PETERSON PIN 0 [facility] CHORIONIC INC INC QUALITATI VE CULTURE 93472 LABORATOR LABORATOR BACTERIAL 0 Y & Y & BIODIAGNO BIODIAGNO QUANTTATI [place] [address] [facility] HATTIE TRANSVAGI 0 [facility] URNLS DIP 78180 LABORATOR LABORATOR 0 Y & Y & STICK/TAB BIODIAGNO BIODIAGNO LET RGNT STICS STICS AUTO W/O MICROSCOP Y CONTRACEP S4993 JASON GOMEZ TIVE 0 [facility] DEPARTNH DEPARTNH CONTROL CYTP 31288 [facility] CERV/VAG 0 CYTOLOGY CYTOLOGY [employer] LAYER PREP MNL SCREEN CONTRACEP S4993 JASON GOMEZ TIVE 0 [facility] CONTROL OPH 35381 JANINA SANDOVAL [facility] MEDICAL 0 VISION XM&EVAL COMPRE NEW PT 1/> VST CONTRACEP S4993 JASON GOMEZ TIVE 0 [facility] CONTROL T T EXC B9 22399 Nyasia PENNINGTON LESION 0 CARE G MRGN XCP ASSOCIATE SK TG S T/A/L 0.5 CM/< SHAVING 72061 FAMILY PENNINGTONNyasia SKIN 0 CARE G LESION 1 ASSOCIATE TRUNK/ARM S /LEG DIAM 0.5CM/< ECHO 45080 [facility] PHYSICIAN ANTHONY Rodrigues S GROUP W/WOM-MOD E COMPL SPEC&COLR D RADIOLOGI 35336 Chelsie PENA 0 MEDICAL OMAR Mike EXAMINATI IMAGING ON CHEST ASSOCIATE SINGLE S VIEW FRONTAL BLOOD 75179 FAMILY PENNINGTONNyasia COUNT 0 CARE G COMPLETE ASSOCIATE AUTO&AUTO S DIFRNTL WBC BLOOD 14073 FAMILY PENNINGTON J COUNT 0 CARE G COMPLETE ASSOCIATE AUTO&AUTO S DIFRNTL WBC Encounters Encounter Start End Date Code Location Performer Type Date OFFICE 30205 [facility] MARTHA OUTPATIEN 7 7 PHYSICIAN T NEW 45 S GROUP MINUTES [facility] 7 7 [facility] OUTPATIEN INC T OFFICE 37751 FAMILY GORGE OUTPATIEN 6 6 CARE TORI T VISIT ASSOCIATE 15 S MINUTES [facility] - 6 6 [facility]PATIEN INC [facility] - 5 5 [facility] OUTPATIEN INC [facility] - 5 5 [facility] OUTPATIEN INC T OFFICE 92468 [facility] VILLAVICENCIO OUTPATIEN 5 5 PHYSICIAN DORIAN T VISIT S GROUP 15 MINUTES [facility] 33402 KELLY FERGUSON FALGUNI PREVENTIV 5 5 PRIMARY E MED EST CARE PATIENT CENTER 18-39 YRS OFFICE 49052 [facility] VILLAVICENCIO OUTPATIEN 5 5 PHYSICIAN DORIAN T VISIT S GROUP 25 MINUTES [facility]OSPITAL [facility] - 5 5 [facility] OUTPATIEN INC T OFFICE 33032 KELLY MONTES DE OCA OUTPATIEN 5 5 PRIMARY T VISIT CARE 15 CENTER MINUTES OFFICE 97926 [facility] OUTPATIEN 5 5 [facility] T VISIT 10 [facility] [place] DEPARTMEN MINUTES T T OFFICE 78572 FAMILY GORGE OUTPATIEN 5 5 CARE TORI T VISIT ASSOCIATE 15 S MINUTES OFFICE 62892 [facility]ACK[facility] OUTPATIEN 5 5 [facility] T VISIT 10 [facility] [place] DEPARTMEN MINUTES T HOSPITAL [facility] - 5 5 [facility] OUTPATIEN INC T OFFICE 25918 [facility] OUTPATIEN 5 5 [facility] T VISIT 10 [facility] [place] DEPARTMEN MINUTES T T OFFICE 36978 [facility] BRACKEN OUTPATIEN 4 4 [facility] HEALTH T VISIT 10 [facility] MINUTES T T OFFICE 09891 FAMILY MULBERRY OUTPATIEN 4 4 CARE EDEN T VISIT ASSOCIATE 15 S MINUTES PERIODIC 59550 BRACKHUM[facility] BR[facility] PREVENTIV 4 4 [place] [facility] [place] EST PATIENT [facility] 18-39 YRS T T OFFICE 32257 [facility] OUTPATIEN 4 4 [facility] VIS[facility] 10 [facility] MINUTES T T HOSPITAL [facility] - 4 4 [facility] OUTPATIEN INC T OFFICE 31071 MULBERRY MULBERRY OUTPATIEN 4 4 EDEN EDEN T VISIT 15 MINUTES OFFICE 54691 [facility] OUTPATIEN 4 4 [place] [facility] T T OFFICE 37515 SAUD VILLAVICENCIO OUTPATIEN 4 4 DORIAN DORIAN T [facility] 45 MINUTES HOSPITAL [facility] - 4 4 [facility] OUTPATIEN INC T OFFICE 06296 FABIANA JUNG OUTPATIEN 4 4 R H R H T VISIT 15 MINUTES [facility] - 1 1 [facility] OUTPATIEN INC T OFFICE 86258 [facility] FALLUJI OUTPATIEN 1 1 PHYSICIAN HENRI T VISIT S GROUP 25 MINUTES HOSPITAL [facility] - 1 1 [facility] OUTPATIEN INC T OFFICE 65551 [facility] FALLUJI OUTPATIEN 1 1 PHYSICIAN HENRI T VISIT S GROUP 25 MINUTES OFFICE 56424 JASON GOMEZ OUTPATIEN 1 1 CO [facility] T VISIT HEALTH HEALTH 10 [facility] NICHOLAS - 1 1 [facility] OUTPATIEN INC T [facility]OSP[facility] - 1 1 [facility] OUTPATIEN INC T OFFICE 74645 WOMEN'S VILLAVICENCIO OUTPATIEN 0 0 HEALTH DORIAN T VISIT CLINIC OF 15 VLADISLAV MINUTES [facility]OSPITAL [facility] - 0 0 [facility] OUTPATIEN INC [facility] - 0 0 [facility] OUTPATIEN INC T OFFICE 51212 WOMEN'S VILLAVICENCIO OUTPATIEN 0 0 HEALTH DORIAN T VISIT CLINIC OF 15 VLADISLAV MINUTES OFFICE 41262 WOMEN'S VILLAVICENCIO CONSULTAT 0 0 HEALTH D[facility] ION CLINIC OF NEW/ESTAB [facility] PATIENT 60 MIN OFFICE 79629 FAMILY GORGE Murrell OUTPATIEN 0 0 CARE T VISIT ASSOCIATE 25 S MINUTES OFFICE [id number] [facility] OUTPATIEN 0 0 PRIMARY DON T VISIT CARE 15 CENTER MINUTES PERIODIC [id number] JASON GOMEZ PREVENTIV 0 0 CO CO E MED EST HEALTH HEALTH PATIENT [facility] 18-39 YRS OFFICE [id number] JASON GOMEZ OUTPATIEN 0 0 CO CO T VISIT HEALTH HEALTH 10 [facility] MINUTES OFFICE 82234 JASON GOMEZ OUTPATIEN 0 0 CO CO T VISIT HEALTH HEALTH 10 [facility] MINUTES T T OFFICE 53526 Nyasia [facility] OUTPATIEN 0 0 CARE G T VISIT ASSOCIATE 15 S MINUTES OFFICE 66280 Nyasia [facility] OUTPATIEN 0 0 CARE G T VISIT ASSOCIATE 15 S MINUTES
--- OUTSIDE RECORDS SUMMARY | 2016-09-11 21:38 | External Medical Summary Rpt ---
Author Author , RAY Organization RAY Address Unknown Phone [email or web address] Tech Care Team Providers Care Wire Bender Hand Name Role Phone MAYORGA ALL, MAYORGA ALL Unavailable Unavailable Getting-in [facility] Unavailable Unavailable DEPARTMENT, [facility] Unavailable Unavailable DEPARTMENT, [facility] HEALTH DEPARTMENT VILLAVICENCIO DORIAN, VILLAVICENCIO Unavailable [...] Unavailable INC, [facility] Unavailable Unavailable HOSPITAL P, [facility] SANDOVAL JESSICA, SANDOVAL JESSICA Unavailable Unavailable SANDOVAL JESSICA, SANDOVAL JESSICA Unavailable Unavailable [facility], Unavailable Unavailable [facility] Unavailable Unavailable IMAGING ASS, [facility] V[facility] Unavailable Unavailable HOLDINGS, [facility] Unavailable Unavailable HOLDINGS, [facility] & Unavailable Unavailable [facility] & Unavailable Unavailable [facility] JOE OF Unavailable Unavailable VANI H, LABORATORY JOE OF VANI H LABORATORY JOE OF Unavailable Unavailable VNAI H, LABORATORY JOE OF VANI H [facility] [...] Unavailable Unavailable LAB, [facility]OLOGY [facility] Unavailable Unavailable DEPARTSD, [facility] Unavailable Unavailable [facility] Unavailable Unavailable DEPARTMENT, [facility] DEPARTMENT MARTHA THOMAS Unavailable Unavailable ELÍAS PATEL, ELÍAS Unavailable Unavailable AMANDA [facility] Unavailable Unavailable LLC., [facility] Unavailable Unavailable LLC., 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 R002 PALPITATION 07-14-2016 [facility] S PHYSICIANS GROUP [id number] PAIN IN 12-18-2015 [place] LEFT [facility]NEE [facility] [id number] UNS INJURY 12-18-2015 [place] LT LOWER MEDICAL LEG INITIAL IMAGING ASS ENCOUNTER Z23 ENCOUNTER 11-26-2015 [facility] LUQUE FOR HEALTH IMMUNIZATIO DEPARTMENT N Z302 ENCOUNTER 12-10-2014 [facility] FOR PHYSICIANS STERILIZATI GROUP ON [id number] ENCOUNTER 12-07-2014 [facility] FOR [facility] PREPROCEDUR INC AL LABORATORY EXAM Z309 ENCOUNTER 12-07-2014 [facility] CONTRACEPTI INC VE MANAGEMENT UNS Z3009 ENCOUNTER 11-27-2014 [facility] OTH GENERAL PHYSICIANS GROUP 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&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 ICE CONTRACEPT Z9851 TUBAL 11-27-2014 [facility] LIGATION PHYSICIANS STATUS GROUP 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 Z1151 ENCOUNTER 11-14-2014 LABORATORY FOR JOE OF SCREENING VANI H FOR HUMAN PAPILLOMAVI MILO Z124 ENCOUNTER 11-14-2014 LABORATORY OTHER JOE OF SCREENING VANI H MALIG NEOPLASM CERVIX P51389 ENCOUNTER 11-13-2014 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 EXAM PRIMARY GENERAL RTN CARE CENTER W/O ABNORMAL FIND Z713 DIETARY 11-13-2014 KELLY LUQUE COUNSELING PRIMARY AND CARE CENTER SURVEILLANC E Z719 COUNSELING 11-13-2014 KELLY ULQUE UNSPECIFIED PRIMARY CARE CENTER V0481 NEED 11-01-2014 MENDY CO PROPHYLACTI HEALTH C DEPARTMENT VACCINATION &INOCULATIO N FLU 1319 UNSPECIFIED 10-25-2014 [facility] PHYSICIANS TRICHOMONIA GROUP SIS 89307 UNSPECIFIED 10-25-2014 [facility] VAGINITIS PHYSICIANS AND GROUP VULVOVAGINI TIS V2509 OTH GENERAL 10-25-2014 [facility] PHYSICIANS CNSL&ADVICE GROUP CONTRACEPT MANAGEMENT V692 PROBLEMS 10-25-2014 [facility]AS RELATED TO [facility] HIGH-RISK INC SEXUAL BEHAVIOR 6235 LEUKORRHEA 09-19-2014 KELLY CO NOT PRIMARY SPECIFIED CARE CENTER INFECTIVE V2549 SURVEILLANC 08-20-2014 MENDY CO E OTH PREV HEALTH PRSC DEPARTMENT CONTRACEPT METHOD 0542 HERPETIC 07-05-2014 [facility] GINGIVOSTOM ASSOCIATES ATITIS 7464 CONGENITAL 07-05-2014 [facility] INSUFFICIEN ASSOCIATES CY OF AORTIC VALVE 7840 [...] VILLAVICENCIO DORIAN SYMPTOM ASSOC W/FEMALE GENITAL ORGANS 32932 ABDOMINAL 03-23-2013 VILL[facility]ICENCIO DORIAN PAIN, LEFT LOWER QUADRANT 05126 REGULAR 03-22-2013 SANDOVAL JESSICA ASTIGMATISM 6250 DYSPAREUNIA 03-16-2013 VILL[facility]ICENCIO DORIAN 71082 ABDOMINAL 03-16-2013 VILLAVICENCIO DORIAN PAIN, UNSPECIFIED SITE 4871 INFLUENZA 02-20-2013 FABIANA R WITH OTHER H RESPIRATORY MANIFESTATI ONS 78949 HEMATURIA 06-25-2010 [facility] UNSPECIFIED MEDICAL IMAGING ASS 88033 ABDOMINAL 06-25-2010 NICHOLAS PAIN OTHER [facility] H[facility] SPECIFIED INC SITE 4240 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 DISORDERS GROUP 95327 SUPRAVENTRI 05-20-2010 [facility] CULAR PHYSICIANS PREMATURE GROUP BEATS 8798 OPEN WOUND 05-10-2010 COMBINED UNSPEC SITE PHYSICIANS WITHOUT LA MENTION COMP 2662 OTHER 03-10-2010 JASON Cano-COMPLEX CO HEALTH DEFICIENCIE DEPARTME S V2541 SURVEILLANC 03-10-2010 JASON LR CO HEALTH PRESCRIBED DEPARTME CONTRACEPT PILL 7466 CONGENITAL 03-03-2010 [facility]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 7852 UNDIAGNOSED 02-13-2010 [facility] P V6700 FOLLOW-UP 12-02-2009 WOMEN'S [...] LABORATORY & BIODIAGNOST ICS V7231 ROUTINE 10-21-2009 [facility] GYNECOLOGIC CYTOLOGY [facility]. 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[facility]OCIATES SKIN OF TRUNK EXCEPT SCROTUM 25683 OTHER 05-15-2009 [facility] ANXIETY [facility] STATES 2382 NEOPLASM OF 05-01-2009 [facility] UNCERTAIN ASSOCIATES BEHAVIOR OF SKIN 58172 VERTIGO 04-24-2009 [facility] LATE EFFECT ASSOCIATES CEREBROVASC ULAR DISEASE 7804 DIZZINESS 04-24-2009 [facility] AND [facility] GIDDINESS GROUP 97352 CHEST PAIN 04-24-2009 [place] UNSPECIFIED [facility] IMAGING ASSOCIATES 68188 UNSPECIFIED 04-17-2009 [facility] VIRAL [facility] INFECTION [...] te s n re d LI 68 07 08 30 30 00 CL Ac SI 18 -1 -0 .0 00 IN ti NO 00 1- 4- 00 00 IC ve MS 51 20 20 43 IL 90 17 17 66 PH -H [address] MA Z CY 20 -1 2. 5 MG TA B IB 55 07 08 40 10 00 CL Ac UP 11 -0 -0 .0 00 IN ti RO 10 8- 4- 00 00 IC ve FE 68 20 20 43 N 20 17 17 63 PH 40 1 17 AR 0 MA MG CY TA BL ET TR 00 06 07 90 30 00 CL Ac AM 37 -2 -2 .0 00 IN ti AD 88 8- 1- 00 00 IC ve OL 08 20 20 43 -A 80 17 17 53 PH CE 5 22 AR TA MA SD CY NO PH N 37 .5 -3 25 ME 57 06 07 60 30 00 CL Ac TO 23 -2 -1 .0 00 IN ti MS 70 1- 4- 00 00 IC ve OL 10 20 20 42 OL 19 17 17 40 PH 9 92 AR TA MA RT CY RA TE 50 MG TA B LI 68 06 06 60 30 00 CL Ac SI 18 -0 -3 .0 00 IN ti NO 00 6- 0- 00 00 IC ve MS 98 20 20 43 IL 00 17 17 31 PH 3 88 AR 10 MA CY MG TA BL ET ME 57 05 06 60 30 00 CL Ac TO 23 -2 -2 .0 00 IN ti MS 70 7- 3- 00 00 IC ve [...] PH CE 5 81 AR TA MA SD CY NO PH N 37 .5 -3 [...] 23 -2 -2 .0 00 IN ti MS 70 8- 6- 00 00 IC ve OL 10 20 20 42 OL 19 17 17 40 PH 9 92 AR TA MA RT CY RA TE 50 MG TA B ME 00 03 04 60 30 00 CL Ac TO 59 -3 -2 .0 00 IN ti MS 10 1- 8- 00 00 IC ve [...] PH CE 5 50 AR TA MA SD CY NO PH N 37 .5 -3 25 ME 00 03 03 60 30 00 CL Ac TO 59 -0 -3 .0 00 IN ti MS 10 3- 1- 00 00 IC ve [...] PH CE 5 77 AR TA MA SD CY NO PH N 37 .5 -3 25 ME 00 02 03 60 30 00 CL Ac TO 59 -0 -0 .0 00 IN ti MS 10 3- 3- 00 00 IC ve [...] PH CE 5 55 AR TA MA SD CY NO PH N 37 .5 -3 25 ME 50 12 02 14 7 00 WA Ac TR 11 -3 -0 .0 00 L- ti ON 10 1- 3- 00 07 MA ve ID 33 20 20 46 RT AZ 40 16 17 18 OL 2 60 PH E AR 50 MA 0 CY MG #5 TA 91 BL ET NI 37 01 02 28 28 00 CL Ac CO 20 -0 -0 .0 00 IN ti TI 50 2- 3- 00 00 IC ve NE 35 20 20 41 87 17 17 37 PH 21 4 69 AR MA MG CY /2 4H R PA TC H ME 00 01 02 60 30 00 CL Ac TO 59 -0 -0 .0 00 IN ti MS 10 2- 3- 00 00 IC ve [...] PH CE 5 55 AR TA MA SD CY NO PH N 37 .5 -3 [...] 59 -0 -0 .0 00 IN ti MS 10 5- 9- 00 00 IC ve [...] -0 -1 .0 IN 38 OP ti MS 40 2- 4- 00 IC 21 ER ve OL 40 20 20 OL 50 11 11 PH RADHA 1 AR HN VERDIN MA G CC CY ER LL C 50 MG TA B CI 00 03 04 2 15 30 CL 23 CO Ac TA 37 -1 -1 .0 IN 48 OP ti LO 86 7- 4- 00 IC 67 ER ve MS 23 20 20 AM 30 11 11 [...] 7- 7- 00 IC 67 ER ve MS 23 20 20 AM 30 11 11 PH RADHA 1 AR HN HB MA G R CY 40 LL MG C TA BL ET ME 49 03 03 4 60 30 CL 23 CO Ac TO 88 -0 -1 .0 IN 38 OP ti MS 40 2- 4- 00 IC 21 ER [...] -1 -1 .0 IN 31 OP ti MS 40 4- 4- 00 IC 78 ER [...] -1 -1 .0 IN 31 OP ti MS 40 4- 3- 00 IC 78 ER [...] -1 -1 .0 IN 31 OP ti MS 40 4- 4- 00 IC 78 ER [...] -1 -1 .0 IN 31 OP ti MS 40 4- 0- 00 IC 78 ER [...] -1 -1 .0 IN 31 OP ti MS 40 4- 1- 00 IC 78 ER [...] -1 -1 .0 IN 31 OP ti MS 40 4- 4- 00 IC 78 ER [...] -1 -1 .0 IN 23 OP ti MS 40 0- 2- 00 IC 11 ER [...] -1 -1 .0 IN 23 OP ti MS 40 0- 3- 00 IC 11 ER [...] -1 -0 .0 IN 23 OP ti MS 40 0- 9- 00 IC 11 ER [...] -1 -1 .0 IN 23 OP ti MS 40 0- 1- 00 IC 11 ER [...] -1 -1 .0 IN 23 OP ti MS 40 0- 2- 00 IC 11 ER [...] -1 -1 .0 IN 23 OP ti MS 40 0- 0- 00 IC 11 ER [...] Procedure DOS Code Location Performer Comment ECG 95543 [facility] ROUTINE 7 PHYSICIAN ECG S GROUP W/LEAST 12 LDS I&R ONLY ECG 85133 NICHOLAS PETERSON ROUTINE 7 [facility] ECG INC INC W/LEAST 12 LDS TRCG ONLY W/O I&R ECHO 00627 NICHOLAS PETERSON TTHRC R-T 7 [facility] 2D INC INC W/WOM-MOD E COMPL SPEC&COLR D RADIOLOGI 26134 [place] MAYORGA ALL C 6 MEDICAL EXAMINATI IMAGING ON KNEE 3 ASS VIEWS IIV4 VACC 08243 RYANEN BRACKEN SPLIT 6 CO HEALTH CO HEALTH VIRUS 0.5 ML DOS DEPARTMEN DEPARTMEN FOR IM T T USE INJECTION J2710 [facility]AS PETERSON 5 [facility] NEOSTIGMI INC INC NE METHYLSUL FATE UP TO 0.5 MG ECG 75369 NICHOLAS MENDOZA JR ROUTINE 5 [facility] W/LEAST P 12 LDS I&R ONLY ANES IPER 28998 [facility] LWR ABD 5 ANESTH AMANDA W/LAPS OF THE TUBAL BLUE LIGATION/ TRANSECT LAPAROSCO 96293 NICHOLAS PETERSON PY W/PLMT 5 [facility] INC INC OCCLUSION DEVICE OVIDUCTS GONADOTRO 37487 NICHOLAS PETERSON PIN 5 [facility] CHORIONIC INC INC QUALITATI VE BLOOD 89284 NICHOLAS PETERSON COUNT 5 [facility] COMPLETE INC INC AUTO&AUTO DIFRNTL WBC CYANOCOBA 87309 NICHOLAS PETERSON JULISSA 5 [facility] VITAMIN INC INC B-12 COMPREHEN 48743 NICHOLAS PETERSON SIVE 5 [facility] METABOLIC INC INC PANEL COLLECTIO 97584 NICHOLAS PETERSON N VENOUS 5 [facility] BLOOD INC INC VENIPUNCT URE IADNA 36707 LABORATOR LABORATOR HUMAN 5 Y JOE OF Y JOE OF PAPILLOMA VANI VANI VIRUS H H HIGH-RISK TYPES CYTP C/V 29504 LABORATOR LABORATOR AUTO THIN 5 Y JOE OF Y JOE OF LYR VANI VANI PREPJ SCR H H MNL RESCR PHYS OPHTH 17799 [facility] MEDICAL 5 XM&EVAL COMPRHNSV ESTAB PT 1/> IIV4 VACC 82734 RYANEN BRACKEN SPLIT 5 CO HEALTH CO HEALTH VIRUS 0.5 ML DOS DEPARTMEN DEPARTMEN FOR IM T T USE SMR PRIM 85311 [facility] SAUD SRC WET 5 PHYSICIAN DORIAN [facility] S GROUP NFCT AGT IADNA 01955 NICHOLAS PETERSON CHLAMYDIA 5 [facility] INC INC TRACHOMAT IS AMPLIFIED PROBE TQ IADNA 57886 NICHOLAS PETERSON NEISSERIA 5 [facility] INC INC GONORRHOE AE AMPLIFIED PROBE TQ SMR PRIM 54564 KELLY FERGUSON FALGUNI SRC WET 5 [facility] CARE NFCT AGT CENTER 25 37200 COMBINED COMBINED HYDROXY 5 PHYSICIAN PHYSICIAN INCLUDES S LA S LA FRACTIONS IF PERFORMED CYANOCOBA 82416 COMBINED COMBINED JULISSA 5 PHYSICIAN PHYSICIAN VITAMIN S LA S LA B-12 XTRNL ECG 32806 NICHOLAS PETERSON & 48 HR 5 [facility] RECORDING INC INC EXTERNAL 70340 NICHOLAS PETERSON ECG 5 [facility] SCANNING INC INC ANALYSIS REPORT XTRNL ECG 89939 NICHOLAS MENDOZA JR 5 [facility] S RHYTHM P W/I&R UP TO 48 HRS COMPREHEN 05112 COMBINED COMBINED SIVE 5 PHYSICIAN PHYSICIAN METABOLIC S LA S LA PANEL ANTIBODY 20151 LAB JOE LAB JOE ANA-B 4 VANI VANI ARR EB HOLDINGS HOLDINGS VIRUS EARLY ANTIGEN EA ANTIBODY 32295 LAB JOE LAB JOE ANA-B 4 VANI VANI ARR EB HOLDINGS HOLDINGS VIRUS NUCLEAR AG EBNA ANTISTREP 56634 LAB JOE LAB JOE TOLYSIN O 4 VANI VANI TITER HOLDINGS HOLDINGS ANTIBODY 79063 LAB JOE LAB JOE ANA-B 4 VANI VANI ARR EB HOLDINGS HOLDINGS VIRUS VIRAL CAPSID VCA IAADIADOO 54487 FAMILY MULBERRY 4 CARE EDEN STREPTOCO ASSOCIATE CCUS S GROUP A BLOOD 09317 FAMILY MULBERRY COUNT 4 CARE EDEN COMPLETE ASSOCIATE AUTO&AUTO S DIFRNTL WBC DUP-SCAN 88439 [place] [facility] XTR VEINS 4 [facility] [place] L/[place] [address] SAUD VILLAVICENCIO TRANSVAGI 4 DORIAN DORIAN NAL OPHTH 31260 [facility] MEDICAL 4 XM&EVAL COMPRE NEW PT 1/> VST URNLS DIP 61904 SAUD VILLAVICENCIO 4 DORIAN DORIAN STICK/TAB LET RGNT NON-AUTO W/O MICRSCP BLOOD 59153 NICHOLAS PETERSON COUNT 4 [facility] COMPLETE INC INC AUTO&AUTO DIFRNTL WBC URINE 89038 SAUD VILLAVICENCIO 4 DORIAN DORIAN TEST VISUAL COLOR CMPRSN METHS BLOOD 12260 [facility] COUNT 4 R H R H COMPLETE AUTO&AUTO DIFRNTL WBC COLLECTIO 77091 [facility] N 4 R H R H CAPILLARY BLOOD SPECIMEN IAADIADOO 12883 [facility] [place] [address] [place] [facility] ABDOMEN & 1 [facility] PELVIS IMAGING W/O ASS CONTRAST MATERIAL 3D 29251 [place] [facility] RENDERING 1 [facility] W/INTERP& ASS POSTPROC DIFF WORK STATION CUL BACT 70977 COMBINED COMBINED XCPT 1 PHYSICIAN PHYSICIAN URINE S LA S LA BLOOD/STO OL AEROBIC ISOL SUSCEPTIB 50494 COMBINED COMBINED ILITY 1 PHYSICIAN PHYSICIAN STUDY S LA S [place] B[place] [address] NICHOLAS PETERSON ACTIVATED 1 [facility] ECG INC INC RECORD MONITOR 30 DAYS CONTRACEP S4993 JASON GOMEZ TIVE 1 CO CO PILLS FOR [employer] HEALTH DEPARTME DEPARTME CONTROL ECHO 26099 NICHOLAS PETERSON TRANSESOP 1 [facility] HAG R-T INC INC 2D W/PRB IMG ACQUISJ I&R DOP 83964 [facility] MARIANNE ECHOCARD 1 PHYSICIAN HENRI [place] [address] NICHOLAS PETERSON INFUSION 1 [facility] THERAPY INC INC PROPHYLAX IS/DX EA HOUR URINE 21170 NICHOLAS PETERSON 1 [facility] TEST INC INC VISUAL COLOR CMPRSN METHS DOPPLER 30864 [facility] MARIANNE ECHOCARD 1 PHYSICIAN HENRI PULSE S GROUP WAVE W/SPECTRA L DISPLAY ECHO 62299 NICHOLAS PETERSON TTHRC R-T 1 [facility] 2D INC INC W/WOM-MOD E COMPL SPEC&COLR D LAPAROSCO 07886 WOMEN'S VILLAVICENCIO PY 0 HEALTH DORIAN W/LYSIS CLINIC OF OF VLADISLAV ADHESIONS ANESTHESI 88716 [facility] A 0 ANESTH INTRAPERI OF THE TONEAL BLUE [place] [address] NICHOLAS PETERSON INFUSION 0 [facility] THERAPY INC INC PROPHYLAX IS/[place] [address] PATHOLOGY PATHOLOGY SURG 0 & & PATHOLOGY CYTOLOGY CYTOLOGY LAB LAB GROSS&BERNARDO ROSCOPIC EXAM APPLICATI 9977 NICHOLAS PETERSON ON/ADMIN 0 [facility] ADHESION INC INC BARRIER SUBSTANCE S HYSTEROSC 6812 NICHOLAS PETERSON OPY 0 [facility] INC INC OTHER 6909 NICHOLAS PETERSON DILATION 0 [facility] AND INC INC CURETTAGE OF UTERUS LAPAROSCP 6581 NICHOLAS PETERSON IC LYSIS 0 [facility] ADHESIONS INC INC OVARY&FAL LOPIAN TUBE BASIC 80872 NICHOLAS PETERSON METABOLIC 0 [facility] PANEL INC INC CALCIUM TOTAL BLOOD 16216 NICHOLAS PETERSON COUNT 0 [facility] COMPLETE INC INC AUTO&AUTO DIFRNTL WBC GONADOTRO 27552 NICHOLAS PETERSON PIN 0 [facility] [place] [address] KELLY KUHN TRANSVAGI 0 [facility] URNLS DIP 45600 LABORATOR LABORATOR 0 Y & Y & STICK/TAB BIODIAGNO BIODIAGNO LET RGNT STICS STICS AUTO W/O MICROSCOP Y CULTURE 35664 LABORATOR LABORATOR BACTERIAL 0 Y & Y & BIODIAGNO BIODIAGNO QUANTTATI STICS STICS VE COLONY COUNT URINE CYTP 85789 [facility] CERV/VAG 0 CYTOLOGY CYTOLOGY [employer]. LAYER PREP MNL SCREEN CONTRACEP S4993 JASON GOMEZ TIVE 0 [facility] HEALTH DEPARTME DEPARTME CONTROL CONTRACEP S4993 JASON GOMEZ TIVE 0 CO [facility] HEALTH DEPARTME DEPARTME CONTROL OPHTH 93173 JANINA SANDOVAL [facility] MEDICAL 0 VISION XM&EVAL COMPRE NEW PT 1/> VST CONTRACEP S4993 JASON GOMEZ TIVE 0 [facility] T T SHAVING 15566 Nyasia CAVAZOS SKIN 0 CARE G LESION 1 ASSOCIATE TRUNK/ARM S /LEG DIAM 0.5CM/< EXC B9 93344 Nyasia CAVAZOS LESION 0 CARE G MRGN XCP ASSOCIATE SK TG S T/A/L 0.5 CM/< BLOOD 77026 Nyasia CAVAZOS COUNT 0 CARE G COMPLETE ASSOCIATE AUTO&AUTO S DIFRNTL WBC RADIOLOGI 84382 [place] VARSHA, C 0 MEDICAL OMAR P EXAMINATI IMAGING ON CHEST ASSOCIATE SINGLE S VIEW FRONTAL ECHO 30369 [facility] MARIANNE [facility] R-T 0 PHYSICIAN ANTHONY O[place] 2D S GROUP W/WOM-MOD E COMPL SPEC&COLR D BLOOD 79356 Nyasia CAVAZOS COUNT 0 CARE G COMPLETE ASSOCIATE AUTO&AUTO S DIFRNTL WBC Encounters Encounter Start End Date Code Location Performer Type Date [facility] NICHOLAS - 7 7 [facility] OUTPATIEN [facility] T OFFICE 75112 [facility] MARTHA OUTPATIEN 7 7 PHYSICIAN T NEW 45 S GROUP MINUTES [facility] NICHOLAS - 7 7 [facility] OUTPATIEN [facility] NICHOLAS - 6 6 [facility] OUTPATIEN [facility] T OFFICE 74394 [facility] OUTPATIEN 6 6 CARE TORI T VISIT ASSOCIATE 15 S MINUTES [facility] NICHOLAS - 5 5 [facility] OUTPATIEN [facility] NICHOLAS - 5 5 [facility] OUTPATIEN [facility] T OFFICE 23825 [facility] SAUD OUTPATIEN 5 5 PHYSICIAN DORIAN T VISIT S GROUP 15 MINUTES [facility] [address]70 KELLY MONTES DE OCA PREVENTIV 5 5 PRIMARY E MED EST CARE PATIENT CENTER 18-39 YRS [facility] NICHOLAS - 5 5 [facility] OUTPATIEN [facility] T OFFICE 02302 [facility] VILLAVICENCIO OUTPATIEN 5 5 PHYSICIAN DORIAN T VISIT S GROUP 25 MINUTES OFFICE 02520 [facility] YOUNG FALGUNI OUTPATIEN 5 5 PRIMARY T VISIT CARE 15 CENTER MINUTES OFFICE 37104 BRACKEN BRACKEN OUTPATIEN 5 5 CO HEALTH CO HEALTH T VISIT 10 [facility] MINUTES T T OFFICE 57237 FAMILY GORGE OUTPATIEN 5 5 CARE TORI T VISIT ASSOCIATE 15 S MINUTES OFFICE 29509 BRACKEN BRACKEN OUTPATIEN 5 5 CO HEALTH CO HEALTH T VISIT 10 [facility] MINUTES T T HOSPITAL NICHOLAS - 5 5 [facility] OUTPATIEN INC T OFFICE 18122 BRACKEN BRACKEN OUTPATIEN 5 5 CO [facility] CO HEALTH T VISIT 10 [facility] MINUTES T T OFFICE 92866 BRACKEN BRACKEN OUTPATIEN 4 4 CO HEALTH CO HEALTH T VISIT 10 [facility] MINUTES T T OFFICE 85655 FAMILY MULBERRY OUTPATIEN 4 4 CARE EDEN T VISIT ASSOCIATE 15 S MINUTES PERIODIC 60478 BRACKEN BRACKEN PREVENTIV 4 4 CO HEALTH CO HEALTH E MED EST PATIENT [facility] 18-39 YRS T T OFFICE 47860 BRACKEN BRACKEN OUTPATIEN 4 4 CO HEALTH CO HEALTH T VISIT 10 [facility] MINUTES T T HOSPITAL NICHOLAS - 4 4 [facility] OUTPATIEN INC T OFFICE 16762 MULBERRY MULBERRY OUTPATIEN 4 4 EDEN EDEN T VISIT 15 MINUTES OFFICE 20558 BRACKEN BRACKEN OUTPATIEN 4 4 CO HEALTH CO HEALTH T VISIT 10 [facility] MINUTES T T HOSPITAL NICHOLAS - 4 4 [facility] OUTPATIEN INC T OFFICE 79766 VILL[facility]ENCIO VILLAVICENCIO OUTPATIEN 4 4 DORIAN DORIAN T NEW 45 MINUTES OFFICE 65630 FABIANA FABIANA OUTPATIEN 4 4 R H R H T VISIT 15 MINUTES HOSPITAL NICHOLAS - 1 1 [facility] OUTPATIEN INC T OFFICE 77431 [facility] FALLUPORTIA OUTPATIEN 1 1 PHYSICIAN HENRI T VISIT S GROUP 25 MINUTES HOSPITAL [facility]AS - 1 1 [facility] OUTPATIEN INC T OFFICE 42884 [facility] FALLUJI OUTPATIEN 1 1 PHYSICIAN HENRI T VISIT S GROUP 25 MINUTES OFFICE 35095 JASON GOMEZ OUTPATIEN 1 1 CO CO T VISIT [address] NICHOLAS - 1 1 [facility] OUTPATIEN [facility] NICHOLAS - 1 1 [facility] OUTPATIEN [facility] T OFFICE 26253 [facility] VILLAVICENCIO OUTPATIEN 0 0 HEALTH DORIAN T VISIT CLINIC OF 15 VLADISLAV MINUTES [facility] NICHOLAS - 0 0 [facility] OUTPATIEN [facility] NICHOLAS - 0 0 [facility] OUTPATIEN [facility] T OFFICE 35000 [facility] VILLAVICENCIO OUTPATIEN 0 0 HEALTH DORIAN T VISIT CLINIC OF 15 VL[place]V MINUTES OFFICE 08395 [facility] VILLAVICENCIO CONSULTAT 0 0 HEALTH DORIAN ION CLINIC OF NEW/ESTAB VLADISLAV PATIENT 60 MIN OFFICE 70395 FAMILY GORGE J OUTPATIEN 0 0 CARE T VISIT ASSOCIATE 25 S MINUTES OFFICE 84030 [facility]LLY K[facility]N OUTPATIEN 0 0 PRIMARY DON T VISIT CARE 15 CENTER MINUTES PERIODIC [id number] JASON GOMEZ PREVENTIV 0 0 CO CO E MED [id number] [id number] JASON GOMEZ OUTPATIEN 0 0 CO CO T VISIT HEALTH HEALTH [address] [place] [address] MINUTES OFFICE 51642 GOMEZSILVIA GOMEZ OUTPATIEN 0 0 CO CO T [facility] [address] [place] [address] MINUTES T T OFFICE [id number] Nyasia ACVAZOS 0 0 CARE G T VISIT ASSOCIATE 15 S MINUTES OFFICE 10534 Nyasia CAVAZOS 0 0 CARE G T VISIT ASSOCIATE 15 S MINUTES
--- OUTSIDE RECORDS SUMMARY | 2016-09-11 21:38 | External Medical Summary Rpt ---
Author Author , RAY Organization RAY Address Unknown Phone [email or web address] computer Care Team Providers Care Geodetic Technician Name Role Phone MAYORGA ALL, MAYORGA ALL Unavailable Unavailable Send the Trend ON LICENSE OF [facility] Unavailable Unavailable DEPARTMENT, [facility] ON LICENSE OF [facility] Unavailable Unavailable DEPARTMENT, [facility] VILLAVICENCIO DORIAN, VILLAVICENCIO Unavailable [...] Unavailable INC, [facility] Unavailable Unavailable HOSPITAL P, [facility] P SANDOVAL JESSICA, SANDOVAL JESSICA Unavailable Unavailable SANDOVAL JESSICA, SANDOVAL JESSICA Unavailable Unavailable [facility], Unavailable Unavailable [facility] Unavailable Unavailable IMAGING ASS, [facility] [...] Unavailable Unavailable LAB, PATHOLOGY & CYTOLOGY LAB [facility] Unavailable Unavailable DEPARTMT, [facility] Unavailable Unavailable [facility] Unavailable Unavailable DEPARTMENT, [facility] DEPARTMENT MARTHA THOMAS Unavailable Unavailable ELÍAS PATEL, ELÍAS Unavailable Unavailable AMANDA [facility] Unavailable [facility]available LLC[facility] Unavailable [facility]available LLC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[facility]IANS CY OF GROUP AORTIC VALVE R002 PALPITATION 07-14-2016 [facility] S [facility] [id number] PAIN IN 12-18-2015 [place] [facility] [id number] UNS INJURY 12-18-2015 [place] LT LOWER MEDICAL LEG INITIAL IMAGING ASS ENCOUNTER Z23 ENCOUNTER 11-26-2015 [facility] FOR [facility] IMMUNIZATIO DEPARTMENT N Z302 ENCOUNTER 12-10-2014 [facility] STERILIZATI GROUP ON [id number] ENCOUNTER 12-07-2014 [facility] PREPROCEDUR INC AL LABORATORY EXAM Z309 ENCOUNTER 12-07-2014 [facility] CONTRACEPTI INC VE MANAGEMENT UNS Z3009 ENCOUNTER 11-27-2014 [facility] MEDICAL CLAIMS SPECIALIST&ADV ICE CONTRACEPT Z9851 TUBAL 11-27-2014 [facility] LIGATION [facility] STATUS GROUP 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 Z1151 ENCOUNTER 11-14-2014 LABORATORY FOR JOE OF SCREENING VANI H FOR HUMAN PAPILLOMAVI MILO Z124 ENCOUNTER 11-14-2014 LABORATORY OTHER JOE OF SCREENING VANI H MALIG NEOPLASM CERVIX V82756 ENCOUNTER 11-13-2014 KELLY LUQUE RAG WASHER EXAM PRIMARY GENERAL RTN CARE CENTER W/O ABNORMAL FIND Z713 DIETARY 11-13-2014 [facility] COUNSELING PRIMARY AND CARE CENTER SURVEILLANC E Z719 COUNSELING 11-13-2014 [facility] UNSPECIFIED PRIMARY CARE CENTER V0481 NEED 11-01-2014 MENDY CO PROPHYLACTI HEALTH C DEPARTMENT VACCINATION &INOCULATIO N FLU 1319 UNSPECIFIED 10-25-2014 [facility] TRICHOMONIA GROUP SIS 07114 UNSPECIFIED 10-25-2014 [facility] VAGINITIS PH[facility]ANS AND GROUP VULVOVAGINI TIS V2509 OTH GENERAL 10-25-2014 [facility] CNSL&ADVICE GROUP CONTRACEPT MANAGEMENT V692 PROBLEMS 10-25-2014 [facility] RELATED TO [facility] HIGH-RISK INC SEXUAL BEHAVIOR 6235 LEUKORRHEA 09-19-2014 KELLY CO NOT PRIMARY SPECIFIED CARE CENTER INFECTIVE V2549 SURVEILLANC 08-20-2014 [facility] CO E OTH PREV HEALTH PRSC DEPARTMENT CONTRACEPT METHOD 0542 HERPETIC 07-05-2014 [facility] GINGIVOSTOM ASSOCIATES ATITIS 7464 CONGENITAL 07-05-2014 [facility] INSUFFICIEN ASSOCIATES CY OF AORTIC VALVE [...] VILLAVICENCIO DORIAN SYMPTOM ASSOC W/FEMALE GENITAL ORGANS 97393 ABDOMINAL 03-23-2013 VILLAVICENCIO DORIAN PAIN, LEFT LOWER QUADRANT 73090 REGULAR 03-22-2013 SANDOVAL JESSICA ASTIGMATISM 6250 DYSPAREUNIA 03-16-2013 VILLAVICENCIO DORIAN 12780 ABDOMINAL 03-16-2013 VILLAVICENCIO DORIAN PAIN, UNSPECIFIED SITE 4871 INFLUENZA 02-20-2013 FABIANA R WITH OTHER H RESPIRATORY MANIFESTATI ONS 63074 HEMATURIA 06-25-2010 [facility] 53828 ABDOMINAL 06-25-2010 [facility]AS PAIN OTHER [facility] SPECIFIED INC SITE 4240 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 [facility] DISORDERS GROUP 05178 SUPRAVENTRI 05-20-2010 [facility] CULAR [facility] PREMATURE GROUP BEATS 8798 OPEN WOUND 05-10-2010 COMBINED UNSPEC SITE PHYSICIANS WITHOUT LA MENTION COMP 2662 OTHER 03-10-2010 JASON Cano-COMPLEX CO [facility] DEFICIENCIE DEPARTME S V2541 SURVEILLANC 03-10-2010 JASON LR CO HEALTH PRESCRIBED DEPARTME CONTRACEPT PILL 7466 CONGENITAL 03-03-2010 [facility]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 7852 UNDIAGNOSED 02-13-2010 [facility] P V6700 FOLLOW-UP 12-02-2009 WOMEN'S EXAMINATION [...] LABORATORY & BIODIAGNOST ICS V7231 ROUTINE 10-21-2009 [facility] GYNECOLOGIC CYTOLOGY AL [facility]. 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[facility]OCIATES SKIN OF TRUNK EXCEPT SCROTUM 33017 OTHER 05-15-2009 [facility] ANXIETY [facility] STATES 2382 NEOPLASM OF 05-01-2009 [facility] UNCERTAIN ASSOCIATES BEHAVIOR OF SKIN 31763 VERTIGO 04-24-2009 [facility] LATE EFFECT ASSOCIATES CEREBROVASC ULAR DISEASE 7804 DIZZINESS 04-24-2009 [facility] GIDDINESS GROUP 60573 CHEST PAIN 04-24-2009 [place] UNSPECIFIED [facility]ICAL IMAGING ASSOCIATES 60531 UNSPECIFIED 04-17-2009 [facility] VIRAL [facility] INFECTION [...] 00 1- 4- 00 00 IC ve FL 51 20 20 43 [place] 90 17 [...] PH CE 5 22 AR TA MA NV CY NO PH N 37 .5 -3 25 ME 57 06 07 60 30 00 CL Ac TO 23 -2 -1 .0 00 IN ti FL 70 1- 4- 00 00 IC ve OL 10 20 20 42 OL 19 17 17 40 PH 9 92 AR TA MA RT CY RA TE 50 MG TA B LI 68 06 06 60 30 00 CL Ac SI 18 -0 -3 .0 00 IN ti NO 00 6- 0- 00 00 IC ve FL 98 20 20 43 [place] 00 17 17 31 PH 3 88 AR 10 MA CY MG TA BL ET ME 57 05 06 60 30 00 CL Ac TO 23 -2 -2 .0 00 IN ti FL 70 7- 3- 00 00 IC ve [...] PH CE 5 81 AR TA MA NV CY NO PH N 37 .5 -3 [...] 23 -2 -2 .0 00 IN ti FL 70 8- 6- 00 00 IC ve OL 10 20 20 42 OL 19 17 17 40 PH 9 92 AR TA MA RT CY RA TE 50 MG TA B ME 00 03 04 60 30 00 CL Ac TO 59 -3 -2 .0 00 IN ti FL 10 1- 8- 00 00 IC ve [...] PH CE 5 50 AR TA MA NV CY NO PH N 37 .5 -3 25 ME 00 03 03 60 30 00 CL Ac TO 59 -0 -3 .0 00 IN ti FL 10 3- 1- 00 00 IC ve [...] PH CE 5 77 AR TA MA NV CY NO PH N 37 .5 -3 25 ME 00 02 03 60 30 00 CL Ac TO 59 -0 -0 .0 00 IN ti FL 10 3- 3- 00 00 IC ve [...] PH CE 5 55 AR TA MA NV CY NO PH N 37 .5 -3 [...] 59 -0 -0 .0 00 IN ti FL 10 2- 3- 00 00 IC ve [...] PH CE 5 55 AR TA MA NV CY NO PH N 37 .5 -3 [...] 59 -0 -0 .0 00 IN ti FL 10 5- 9- 00 00 IC ve [...] -0 -1 .0 IN 38 OP ti FL 40 2- 4- 00 IC 21 ER ve OL 40 20 20 OL 50 11 11 PH RADHA 1 AR HN VERDNI MA G CC CY ER LL C 50 MG TA B CI 00 03 04 2 15 30 CL 23 CO Ac TA 37 -1 -1 .0 IN 48 OP ti LO 86 7- 4- 00 IC 67 ER ve FL 23 20 20 AM 30 11 11 [...] 7- 7- 00 IC 67 ER ve FL 23 20 20 AM 30 11 11 PH RADHA 1 AR HN HB MA G R CY 40 LL MG C TA BL ET ME 49 03 03 4 60 30 CL 23 CO Ac TO 88 -0 -1 .0 IN 38 OP ti FL 40 2- 4- 00 IC 21 ER [...] -1 -1 .0 IN 31 OP ti FL 40 4- 4- 00 IC 78 ER [...] -1 -1 .0 IN 31 OP ti FL 40 4- 3- 00 IC 78 ER [...] -1 -1 .0 IN 31 OP ti FL 40 4- 4- 00 IC 78 ER [...] -1 -1 .0 IN 31 OP ti FL 40 4- 0- 00 IC 78 ER [...] -1 -1 .0 IN 31 OP ti FL 40 4- 1- 00 IC 78 ER [...] -1 -1 .0 IN 31 OP ti FL 40 4- 4- 00 IC 78 ER ve OL 40 20 20 OL 50 10 10 PH RDAHA 1 AR HN VERDIN MA G CC [...] -1 -1 .0 IN 23 OP ti FL 40 0- 2- 00 IC 11 ER [...] -1 -1 .0 IN 23 OP ti FL 40 0- 3- 00 IC 11 ER [...] -1 -0 .0 IN 23 OP ti FL 40 0- 9- 00 IC 11 ER [...] -1 -1 .0 IN 23 OP ti FL 40 0- 1- 00 IC 11 ER [...] -1 -1 .0 IN 23 OP ti FL 40 0- 2- 00 IC 11 ER [...] -1 -1 .0 IN 23 OP ti FL 40 0- 0- 00 IC 11 ER [...] Procedure DOS Code Location Performer Comment ECG [address] [facility] ROUTINE 7 PHYSICIAN ECG S GROUP W/LEAST 12 LDS I&R ONLY ECG 61220 NICHOLAS PETERSON ROUTINE 7 [facility] ECG INC INC W/LEAST 12 LDS TRCG ONLY W/O I&R ECHO 51925 NICHOLAS PETERSON TTHRC R-T 7 [facility] 2D INC INC W/WOM-MOD E COMPL SPEC&COLR D RADIOLOGI 44427 [place] MAYORGA ALL C 6 MEDICAL EXAMINATI IMAGING ON KNEE 3 ASS VIEWS IIV4 VACC 51172 RYANEN BRACKEN SPLIT 6 CO HEALTH CO HEALTH VIRUS 0.5 ML DOS DEPARTMEN DEPARTMEN FOR IM T T USE INJECTION J2710 N[facility]AS PETERSON 5 [facility] NEOSTIGMI INC INC NE METHYLSUL FATE UP TO 0.5 MG ECG 74829 NICHOLAS MENDOZA JR ROUTINE 5 [facility] W/LEAST P 12 LDS I&R ONLY ANES IPER 15586 [facility] LWR ABD 5 ANESTH AMANDA W/LAPS OF THE TUBAL BLUE LIGATION/ TRANSECT LAPAROSCO 38887 NICHOLAS PETERSON PY W/PLMT 5 [facility] INC INC OCCLUSION DEVICE OVIDUCTS GONADOTRO 52603 NICHOLAS PETERSON PIN 5 [facility] CHORIONIC INC INC QUALITATI VE BLOOD 71109 NICHOLAS PETERSON COUNT 5 [facility] COMPLETE INC INC AUTO&AUTO DIFRNTL WBC CYANOCOBA 51231 NICHOLAS PETERSON JULISSA 5 [facility] VITAMIN INC INC B-12 COMPREHEN 97021 NICHOLAS PETERSON SIVE 5 [facility] METABOLIC INC INC PANEL COLLECTIO 02603 NICHOLAS PETERSON N VENOUS 5 [facility] BLOOD INC INC VENIPUNCT URE IADNA 96481 LABORATOR LABORATOR HUMAN 5 Y JOE OF Y JOE OF PAPILLOMA VANI VANI VIRUS H H HIGH-RISK TYPES CYTP C/V 47557 LABORATOR LABORATOR AUTO THIN 5 Y JOE OF Y JOE OF LYR VANI VANI PREPJ SCR H H MNL RESCR PHYS OPHTH 48033 [facility] MEDICAL 5 XM&EVAL COMPRHNSV ESTAB PT 1/> IIV4 VACC 02035 RYANEN BRACKEN SPLIT 5 CO HEALTH CO HEALTH VIRUS 0.5 ML DOS DEPARTMEN DEPARTMEN FOR IM T T USE SMR PRIM 42467 [facility] SRC WET 5 PHYSICIAN DORIAN [facility] S GROUP NFCT AGT IADNA 10872 NICHOLAS PETERSON CHLAMYDIA 5 [facility] INC INC TRACHOMAT IS AMPLIFIED PROBE TQ IADNA 27258 NICHOLAS PETERSON NEISSERIA 5 [facility] INC INC GONORRHOE AE AMPLIFIED PROBE TQ SMR PRIM 13342 KELLY FERGUSON FALGUNI SRC WET 5 [facility] NFCT AGT CENTER 25 29396 COMBINED COMBINED HYDROXY 5 PHYSICIAN PHYSICIAN INCLUDES S LA S LA FRACTIONS IF PERFORMED CYANOCOBA 53084 COMBINED COMBINED JULISSA 5 PHYSICIAN PHYSICIAN VITAMIN S LA S LA B-12 XTRNL ECG 07569 NICHOLAS PETERSON & 48 HR 5 [facility] RECORDING INC INC EXTERNAL 83181 NICHOLAS PETERSON ECG 5 [facility] SCANNING INC INC ANALYSIS REPORT XTRNL ECG 94048 NICHOLAS MENDOZA JR [facility] S RHYTHM P W/I&R UP TO 48 HRS COMPREHEN 37935 COMBINED COMBINED SIVE 5 PHYSICIAN PHYSICIAN METABOLIC S LA S LA PANEL ANTIBODY 37748 LAB JOE LAB JOE ANA-B 4 VANI VANI ARR EB [facility] VIRUS EARLY ANTIGEN EA ANTIBODY 79342 LAB JOE LAB JOE ANA-B 4 VANI VANI ARR EB [facility] VIRUS NUCLEAR AG EBNA ANTISTREP 10890 LAB JOE LAB JOE TOLYSIN O 4 VANI VANI TITER [facility] ANTIBODY 74255 LAB JOE LAB JOE ANA-B 4 VANI VANI ARR EB [facility] VIRUS VIRAL CAPSID VCA IAADIADOO 74092 FAMILY MULBERRY 4 CARE EDEN STREPTOCO ASSOCIATE CCUS S GROUP A BLOOD 81385 FAMILY MULBERRY COUNT 4 CARE EDEN COMPLETE ASSOCIATE AUTO&AUTO S DIFRNTL WBC DUP-SCAN 64713 [place] IR[place] XTR VEINS 4 [facility] [place] [address] SAUD VILLAVICENCIO TRANSVAGI 4 DORIAN DORIAN NAL OPHTH 34250 [facility] MEDICAL 4 XM&EVAL COMPRE NEW PT 1/> VST URNLS DIP 29388 SAUD VILLAVICENCIO 4 DORIAN DORIAN STICK/TAB LET RGNT NON-AUTO W/O MICRSCP BLOOD 27936 NICHOLAS PETERSON COUNT 4 [facility] COMPLETE INC INC AUTO&AUTO DIFRNTL WBC URINE 52823 SAUD VILLAVICENCIO 4 DORIAN DORIAN TEST VISUAL COLOR CMPRSN METHS BLOOD 53994 [facility] COUNT 4 R H R H COMPLETE AUTO&AUTO DIFRNTL WBC COLLECTIO 84228 [facility] N 4 R H R H CAPILLARY BLOOD SPECIMEN IAADIADOO 37403 [facility] [place] [address] [place] [facility] ABDOMEN & 1 [facility] [place] PELVIS IMAGING W/O ASS CONTRAST MATERIAL 3D 05521 [place] [facility] RENDERING 1 [facility] W/INTERP& ASS POSTPROC DIFF WORK STATION CUL BACT 97613 COMBINED COMBINED XCPT 1 PHYSICIAN PHYSICIAN URINE S LA S LA BLOOD/STO OL AEROBIC ISOL SUSCEPTIB 52698 COMBINED COMBINED ILITY 1 PHYSICIAN PHYSICIAN STUDY S LA S [place] B[place] [address] NICHOLAS PETERSON ACTIVATED 1 [facility] ECG INC INC RECORD MONITOR 30 DAYS CONTRACEP S4993 JASON GOMEZ TIVE 1 CO CO PILL[facility] FOR [facility] HEALTH DEPARTME DEPARTME CONTROL ECHO 07267 NICHOLAS PETERSON TRANSESOP 1 [facility] HAG R-T INC INC 2D W/PRB IMG ACQUISJ I&R DOP 67527 [facility] ECHOCARD 1 PHYSICIAN HENRI [place] [address] NICHOLAS PETERSON INFUSION 1 [facility] THERAPY INC INC PROPHYLAX IS/DX EA HOUR URINE 89965 NICHOLAS PETERSON 1 [facility] TEST INC INC VISUAL COLOR CMPRSN METHS DOPPLER 81208 [facility] ECHOCARD 1 PHYSICIAN HENRI PULSE S GROUP WAVE W/SPECTRA L DISPLAY ECHO 47413 NICHOLAS PETERSON TTHRC R-T 1 [facility] HOSP 2D INC INC W/WOM-MOD E COMPL SPEC&COLR D LAPAROSCO 48130 [facility]OMEN'[facility] VILLAVICENCIO PY 0 HEALTH DORIAN W/LYSIS [facility] OF [place] ADHESIONS ANESTHESI 23285 [facility] A 0 ANESTH INTRAPERI OF THE TONEAL BLUE [place]OWER [place] [address] NICHOLAS PETERSON INFUSION 0 [facility] THERAPY INC INC PROPHYLAX IS/[place] [address] PATHOLOGY PATHOLOGY SURG 0 & & PATHOLOGY [...] ADHESIONS INC INC OVARY&FAL LOPIAN TUBE BASIC 72976 NICHOLAS PETERSON METABOLIC 0 [facility] PANEL INC INC CALCIUM TOTAL BLOOD 08390 NICHOLAS PETERSON COUNT 0 [facility] COMPLETE INC INC AUTO&AUTO DIFRNTL WBC GONADOTRO 20361 NICHOLAS PETERSON PIN 0 [facility] [place] [address] [facility] TRANSVAGI 0 [facility] URNLS DIP 18582 LABORATOR LABORATOR 0 Y & Y & STICK/TAB BIODIAGNO BIODIAGNO LET RGNT STICS STICS AUTO W/O MICROSCOP Y CULTURE 85273 LABORATOR LABORATOR BACTERIAL 0 Y & Y & BIODIAGNO BIODIAGNO QUANTTATI STICS STICS VE COLONY COUNT URINE CYTP 38014 [facility] CERV/VAG 0 CYTOLOGY CYTOLOGY [employer] [facility] LAYER PREP MNL SCREEN CONTRACEP S4993 JASON GOMEZ TIVE 0 [facility] DEPARTME DEPARTME CONTROL CONTRACEP S4993 JASON GOMEZ TIVE 0 CO [facility] DEPARTME DEPARTME CONTROL OPHTH 36835 JANINA SANDOVAL [facility] MEDICAL 0 VISION XM&EVAL COMPRE NEW PT 1/> VST CONTRACEP S4993 JASON GOMEZ TIVE 0 CO [facility] CONTROL T T SHAVING 05388 Nyasia CAVAZOS SKIN 0 CARE G LESION 1 ASSOCIATE TRUNK/ARM S /LEG DIAM 0.5CM/< EXC B9 69385 Nyasia CAVAZOS LESION 0 CARE G MRGN XCP ASSOCIATE SK TG S T/A/L 0.5 CM/< BLOOD 64036 Nyasia CAVAZOS COUNT 0 CARE G COMPLETE ASSOCIATE AUTO&AUTO S DIFRNTL WBC RADIOLOGI 22837 [place] VARSHA, C 0 MEDICAL OMAR P EXAMINATI IMAGING ON CHEST ASSOCIATE SINGLE S VIEW FRONTAL ECHO 05921 [facility] R-T 0 PHYSICIAN ANTHONY [place] 2D S GROUP W/WOM-MOD E COMPL SPEC&COLR D BLOOD 59833 Nyasia CAVAZOS COUNT 0 CARE G COMPLETE ASSOCIATE AUTO&AUTO S DIFRNTL WBC Encounters Encounter Start End Date Code Location Performer Type Date [facility] - 7 7 [facility] OUTPATIEN [facility] T OFFICE 84736 [facility] 7 7 PHYSICIAN T NEW 45 S GROUP MINUTES [facility] NICHOL[facility] - 7 7 [facility] OUTPATIEN [facility] NICHOLAS - 6 6 [facility] OUTPATIEN [facility] T OFFICE 59183 [facility] [place] OUTPATIEN 6 6 CARE TORI T VISIT ASSOCIATE 15 S MINUTES [facility] NICH[facility] - 5 5 [facility] OUTPATIEN [facility] NICHOLAS - 5 5 [facility] OUTPATIEN [facility] T OFFICE 40027 [facility] OUTPATIEN 5 5 PHYSICIAN DORIAN T VISIT S GROUP 15 MINUTES [facility] 73507 KELLY MONTES DE OCA PREVENTIV 5 5 PRIMARY E MED EST CARE PATIENT CENTER 18-39 YRS [facility] NICHOLAS - 5 5 [facility] OUTPATIEN [facility] T OFFICE 54986 [facility] VILLAVICENCIO OUTPATIEN 5 5 PHYSICIAN DORIAN T VISIT S GROUP 25 MINUTES OFFICE 98481 [facility] CO YOUNG FALGUNI OUTPATIEN 5 5 PRIMARY T VISIT CARE 15 CENTER MINUTES OFFICE 88346 [facility]ACK[facility] BRACKEN OUTPATIEN 5 5 CO HEALTH CO HEALTH T VISIT 10 [facility] MINUTES T T OFFICE 47916 FAMILY GORGE OUTPATIEN 5 5 CARE TORI T VISIT ASSOCIATE 15 S MINUTES OFFICE 10130 [facility]ACK[facility] BRACKEN OUTPATIEN 5 5 CO HEALTH CO HEALTH T VISIT 10 [facility] MINUTES T T HOSPITAL N[facility] - 5 5 [facility] OUTPATIEN INC T OFFICE 24310 [facility] BRACKEN OUTPATIEN 5 5 CO [facility] CO HEALTH T VISIT 10 [facility] MINUTES T T OFFICE 23920 [facility]ACK[facility] BRACKEN OUTPATIEN 4 4 CO HEALTH CO HEALTH T VISIT 10 [facility] MINUTES T T OFFICE 86698 FAMILY MULBERRY OUTPATIEN 4 4 CARE EDEN T VISIT ASSOCIATE 15 S MINUTES PERIODIC 36464 [facility]ACK[facility] BRACKEN PREVENTIV 4 4 CO HEALTH CO HEALTH E MED EST PATIENT [facility] 18-39 YRS T T OFFICE 44880 [facility]ACKEN BRACKEN OUTPATIEN 4 4 CO HEALTH CO HEALTH T VISIT 10 [facility] MINUTES T T HOSPITAL [facility] - 4 4 [facility] OUTPATIEN INC T OFFICE 19598 MULBERRY MULBERRY OUTPATIEN 4 4 EDEN EDEN T VISIT 15 MINUTES OFFICE 90852 BRACKEN BRACKEN OUTPATIEN 4 4 CO HEALTH CO HEALTH T VISIT 10 [facility] MINUTES T T HOSPITAL [facility] - 4 4 [facility] OUTPATIEN INC T OFFICE 79324 VILLAVICENCIO VILLAVICENCIO OUTPATIEN 4 4 DORIAN DORIAN T NEW 45 MINUTES OFFICE 62630 FABIANA FABIANA OUTPATIEN 4 4 R H R H T VISIT 15 MINUTES [facility]OSPITAL [facility] - 1 1 [facility] OUTPATIEN INC T OFFICE 43103 [facility] OUT[facility] 1 1 PHYSICIAN HENRI T VISIT S GROUP 25 MINUTES [facility]OSPITAL [facility] - 1 1 [facility] OUTPATIEN INC T OFFICE 61252 [facility] F[facility] OUTPATI[facility] 1 1 PHYSICIAN HENRI T VISIT S GROUP 25 MINUTES OFFICE 48703 JASON GOMEZ OUTPATIEN 1 1 CO CO T VISIT [address] NICHOLAS - 1 1 [facility] NICHOLAS - 1 1 [facility] OUTPATIEN [facility] T OFFICE 84156 WOMEN'S VILLAVICENCIO OUTPATIEN 0 0 HEALTH DORIAN T VISIT CLINIC OF 15 [place] MINUTES [facility] NICHOLAS - 0 0 [facility] OUTPATIEN [facility] NICHOLAS - 0 0 [facility] OUTPATIEN [facility] T OFFICE 02740 WOMEN'S VILLAVICENCIO OUTPATIEN 0 0 HEALTH DORIAN T VISIT CLINIC OF 15 [place] MINUTES OFFICE 71742 WOMEN'S VILLAVICENCIO CONSULTAT 0 0 HEALTH DORIAN ION CLINIC OF NEW/ESTAB [place] PATIENT 60 MIN OFFICE 50656 FAMILY GORGE J OUTPATIEN 0 0 CARE T VISIT ASSOCIATE 25 S MINUTES OFFICE 75200 [facility] OUTPATIEN 0 0 PRIMARY DON T VISIT CARE 15 CENTER MINUTES PERIODIC 04127 JASON GOMEZ PREVENTIV 0 0 CO CO E [facility] 36118 JASON GOMEZ OUTPATIEN 0 0 CO CO T VISIT HEALTH HEALTH [address] [place] [address] MINUTES OFFICE 14186 GOMEZSILVIA GOMEZ OUTPATIEN 0 0 CO CO T VISIT HEALTH HEALTH [address] [place] [address] MINUTES T T OFFICE 72499 Nyasia CAVAZOS 0 0 CARE G T VISIT ASSOCIATE 15 S MINUTES OFFICE 84941 Nyasia CAVAZOS 0 0 CARE G T VISIT ASSOCIATE 15 S MINUTES
--- OUTSIDE RECORDS SUMMARY | 2016-09-11 21:39 | External Medical Summary Rpt ---
Demographics Preferred Language Belarusian Marital Status Unknown Protestant Affiliation Unknown Race Unknown Ethnic Group Unknown Author Author , RAY BELL Address Unknown Phone Immunization Unable to retrieve immunization data due to connection failure with Immunization Registry. Please try again later.
--- OUTSIDE RECORDS SUMMARY | 2016-09-11 21:39 | External Medical Summary Rpt ---
Demographics Preferred Language Pashto Marital Status Unknown Orthodox Affiliation Unknown Race Unknown Ethnic Group Unknown Author Author , RAY BELL Address Unknown Phone Immunization Unable to retrieve immunization data due to connection failure with Immunization Registry. Please try again later.
== END 2016-09-09 17:04 | disposition home or self-care (01) ==
LOC: ER 14:03
PROVIDERS: Emergency Medicine
DX: R07.89 Other chest pain (principal); I10 Essential (primary) hypertension; Z87.891 Personal history of nicotine dependence

== ENCOUNTER → 2016-10-14 | Outpatient (CLI) | payer MEDICAID ==
[~2016-10-14] MED LIST changes: +DIAZEPAM5 MG PO; +FLAGYL 500MG.500 MG PO; +LISINOPRIL/HCTZ1 TA3 FT; +ULTRACET 325 MG1 TAB PO
--- NOTE | 2016-10-14 14:18 | RADIOLOGY REPORT PS360 ---
CHEST(2 VIEWS-NOT PORTABLE) HISTORY: Follow-up pleural effusion and CHF PLUERAL EFFUSION ORDERING PHYSICIAN: Nyasia Koch MD PATIENT AGE: 36 years COMPARISON: 10/08/2016 FINDINGS: The cardiomediastinal silhouette and pulmonary vascularity are within normal limits. Small bilateral pleural effusions have resolved. The lungs are clear aside from calcified granulomas. No acute bony anomalies. IMPRESSION: 1. No acute finding. 2. Resolved bilateral pleural effusions.
== END ==
LOC: RAD 11:26
DX: J90 Pleural effusion, not elsewhere classified (principal)

== ENCOUNTER → 2016-11-05 | Outpatient (CLI) | payer MEDICAID ==
--- NOTE | 2016-11-05 18:31 | RADIOLOGY REPORT PS360 ---
US PELVIS-TRANSVAGINAL ONLY HISTORY: F/U LEFT OVARIAN CYST ORDERING PHYSICIAN: Nyasia Koch MD PATIENT AGE: 36 years COMPARISON: 10/05/2016 FINDINGS: UTERUS: The uterus measures 7 x 4.5 x 5.4 cm with a combined endometrial thickness of 7 mm. The uterus is retroverted. The right ovary is 3 x 2.4 x 1.9 cm. There is an irregular cyst present within the right ovary measuring 1 cm and there is a small amount fluid around the right ovary. This may be related to ruptured ovarian cyst. The left ovary is 2 x 2 cm. Previously described 3 cm left ovarian cyst is no longer apparent. There is bilateral ovarian blood flow. IMPRESSION: The findings are consistent with ruptured right ovarian cyst. Previously noted left ovarian cyst is no longer apparent
== END ==
LOC: RAD 13:27
DX: N83.202 Unspecified ovarian cyst, left side (principal)